=== PATIENT | female | born 1980 | race Hispanic/Latino ===

== ENCOUNTER 2018-09-09 19:06 | Emergency (ER) | payer OTHER ==
[~2018-09-09] VITALS: Ht 154.9 cm; Wt 113.4 kg
--- OUTSIDE RECORDS SUMMARY | ~2018-09-09 | XMS | Clinical Summary ---
Demographics + + + | Address | [address] | | | [place] [address] | + + + | Preferred Language | Unknown | + + + | Marital Status | Legally | + + + | Advent Affiliation | Unknown | + + + | Race | Unknown | + + + | Ethnic Group | Unknown | + + + Author + + + | Author | [facility] | + + + | Organization | [facility] | + + + | Address | Unknown | + + + | Phone | Unavailable | + + + Support + + +---------+ + | Name | Relationship | Address | Phone | + + +---------+ + | Rosalind Kang | ECON | Unknown | | + + +---------+ + Care Team Providers + +------+ + | Care Crib Attendant Name | Role | Phone | + +------+ + | Nguyen Carney MD | PP | Unavailable | + +------+ + Allergies No Known Allergies Current Medications + + +-------+---------+------+------+-------+ | Prescription | Sig. | Disp. | Refills | Star | End | Statu | | | | | | t | Date | s | | | | | | Date | | | + + +-------+---------+------+------+-------+ | calcium carbonate | Take 1 tablet by | | | | | Activ | | (OS-JESSICA) 1250 MG | mouth daily. | | | | | e | | tablet | | | | | | | + + +-------+---------+------+------+-------+ | ferrous sulfate | Take 325 mg by mouth | | | | | Activ | | 325 (65 FE) MG | daily with | | | | | e | | tablet | breakfast. | | | | | | + + +-------+---------+------+------+-------+ Active Problems + + + | Problem | Noted Date | + + + | Chest pain, unspecified | 09/15/2012 | + + + | Troponin level elevated | 09/15/2012 | + + + | Morbid obesity (HCC) | 09/15/2012 | + + + | Anemia, unspecified | 09/15/2012 | + + + Social History + +-------+ +--------+------+ | Tobacco Use | Types | Packs/Day | Years | Date | | | | | Used | | + +-------+ +--------+------+ | Never Smoker | | | | | + +-------+ +--------+------+ + + +---------+ + | Alcohol Use | Drinks/We | oz/Week | Comments | | | ek | | | + + +---------+ + | No | | | | + + +---------+ + + + + | Sex Assigned at | Date Recorded | | | | + + + | Not on file | | + + + Last Filed Vital Signs + + + + | Vital Sign | Reading | Time Taken | + + + + | Blood Pressure | 113/71 | 09/17/2012 4:24 PM PDT | + + + + | Pulse | 76 | 09/17/2012 4:24 PM PDT | + + + + | Temperature | 36.8 C (98.2 F) | 09/17/2012 4:24 PM PDT | + + + + | Respiratory Rate | 16 | 09/17/2012 4:24 PM PDT | + + + + | Oxygen Saturation | 96% | 09/17/2012 4:24 PM PDT | + + + + | Inhaled Oxygen | - | - | | Concentration | | | + + + + | Weight | 100 kg (220 lb 7.4 | 09/17/2012 12:08 AM PDT | | | oz) | | + + + + | Height | 154.9 cm (5' 1") | 09/15/2012 8:15 PM PDT | + + + + | Body Mass Index | 41.66 | 09/17/2012 12:08 AM PDT | + + + + Plan of Treatment Not on file Results Not on filefrom Last 3 Months Insurance +---------+--------+ +------+-------+ + | Payer | Benefi | Subscriber | Type | Phone | Address | | | t Plan | ID | | | | | | / | | | | | | | Group | | | | | +---------+--------+ +------+-------+ + | PREMERA | PREMER | [id number] | | | [address] [address] | | | A BLUE | 4 | | | [place], [place] | | | CARD | | | | [phone] | +---------+--------+ +------+-------+ + + +--------+ +--------+ + + | Guarantor Name | Accoun | Relation to | Date | Phone | Billing Address | | | t Type | Patient | of | | | | | | | | | | + +--------+ +--------+ + + | JUAN CARLOS DESOUZA | Person | Self [birth year] Home: | [address] | | | al/Fam | | 1980 | [phone] | [place] | | | [place] | | | [address] | [phone] | + +--------+ +--------+ + +
--- OUTSIDE RECORDS SUMMARY | ~2018-09-09 | XMS | Encounter Summary ---
Demographics + + + | Address | [address] | | | [place] [address] | + + + | Home Phone | | + + + | Preferred Language | Unknown | + + + | Marital Status | Single | + + + | Moravian Affiliation | Unknown | + + + | Race | White | + + + | Ethnic Group | or | + + + Author + + + | Author | [facility] | + + + | Organization | [facility] | + + + | Address | Unknown | + + + | Phone | Unavailable | + + + Support + + +---------+ + | Name | Relationship | Address | Phone | + + +---------+ + | Rosalind Kang | ECON | Unknown | | + + +---------+ + Care Team Providers + +------+ + | Care Engineering Job Titles Name | Role | Phone | + +------+ + | Josephine Ruff | PCP | Unavailable | + +------+ + Encounter Details +--------+------+ + + + | Date | Type | Department | Care Team | Description | +--------+------+ + + + | 12/08/ | Lab | Laboratory at [facility] | | Optic neuritis, left | | 2016 | | [address] | | | | | | [place], [place] | | | | | | [address] | | | | | | [phone] | | | +--------+------+ + + + Social History + +-------+ [...] | + +--------+ + + + | CHAYO BY BEATRICE | Routin | 12/09/2015 | Optic neuritis, | Results for this | | W/REFLEX TO IFA | e | 10:55 AM | left | procedure are in the | | PATTERN & AB ID WHEN | | PDT | | results section. | | INDICATED | | | | | + +--------+ + + + | QUANTIFERON TB GOLD, | Routin | 12/09/2015 | Optic neuritis, | Results for this | | BLOOD | e | 10:55 AM | left | procedure are in the | | | | PDT | | results section. | + +--------+ + + + | ANGIOTENSIN CONVERT | Routin | 12/09/2015 | Optic neuritis, | Results for this | | ENZYME, SERUM | e | 10:55 AM | left | procedure are in the | | | | PDT | | results section. | + +--------+ + + + | RPR SERUM | Routin | 12/09/2015 | Optic neuritis, | Results for this | | | e | 10:55 AM | left | procedure are in the | | | | PDT | | results section. | + +--------+ + + + | ANTI NEUTROPHIL | Routin | 12/09/2015 | Optic neuritis, | Results for this | | CYTOPLASMIC AB SCN, | e | 10:55 AM | left | procedure are in the | | SERUM | | PDT | | results section. | + +--------+ + + + documented in this encounter Results QUANTIFERON TB GOLD, BLOOD (12/09/2015 10:55 AM PDT) + + + + + + | Component | Value | Ref Range | Performed | Pathologist | | | | | At | Signature | + + + + + + | QUANTIFERON | Negative | Negative | [facility] | | TB GOLD | | | [facility] | | | | | | [place] | | + + + + + + | NIL | 0.187 | IU/mL | [facility] | | | | | [facility] | | | | | | [place] | | + + + + + + | TB AG | 0.280 | IU/mL | [facility] | | | | | [facility] | | | | | | [place] | | + + + + + + | MITOGEN | 3.354 | IU/mL | [facility] | | | | | [facility] | | | | | | [place] | | + + + + + + | TB AG-NIL | 0.092 | IU/mL | [facility] | | | | | | [facility] | | | | | | [place] | | + + + + + + | MITOGEN-NIL | 3.166 | IU/mL | [facility] | | | | | | [facility] | | | | | | [place] | | + + + + + + + + | Specimen | + + | Blood - Blood | + + + + + + + | Performing | Address | City/State/Zipcode | Phone Number | | Organization | | | | + + + + + | [facility] | [address] | [place] [address] | | | [place] | | | | + + + + + RPR SERUM (12/09/2015 10:55 AM PDT) + + + + + + | Component | Value | Ref Range | Performed | Pathologist | | | | | At | Signature | + + + + + + | RPR SRM | Non ReactiveComment: | Non Reactive | [facility] | | | QUAL | Rapid Plasma Reagin | | REG UNIV | | | | screening test is | | PTH - INTFC | | | | Non-Reactive. No further | | | | | | reflex testing is | | | | | | required.Performed by | | | | | | [facility],[address] | | | | | [address], [facility] | | | | | | [address] | | | | | | [phone].[employer]. | | | | | | yoni, Torey Gupta, | | | | | | Mikal PAYTON. Director | | | | + + + + + + + + | Specimen | + + | Blood - Blood | + + + + + + + | Performing | Address | City/State/Zipcode | Phone Number | | Organization | | | | + + + + + | [facility] | [address] | [place], [place] | | | UNIV PTH - INT[facility] | | [address] | | + + + + + ANTI NEUTROPHIL CYTOPLASMIC AB SCN, SERUM (12/09/2015 10:55 AM PDT) + + + + + + | Component | Value | Ref Range | Performed | Pathologist | | | | | At | Signature | + + + + + + | ANCA | <1:20Comment: The ANCA | <1:20 | [facility] | | | -NEUTROPHIL | IFA is <1:20; therefore, | | REG UNIV | | | | no further testing will | | PTH - INTFC | | | CYTOPLASMIC | be performed. ANCA IFA | | | | | IGG, SERUM | is < 1:20. No | | | | | | further reflex testing | | | | | | will be | | | | | | performed.INTERPRETIVE | | | | | | INFORMATION: | | | | | | Anti-Neutrophil Cyto Ab, | | | | | | IgG Neutrophil | | | | | | Cytoplasmic Antibodies | | | | | | (C-ANCA = granular | | | | | | cytoplasmic staining, | | | | | | P-ANCA = perinuclear | | | | | | staining) are found in | | | | | | the serum of over 90 | | | | | | percent of patients with | | | | | | certain necrotizing | | | | | | systemic vasculitides, | | | | | | and usually in less than | | | | | | 5 percent of patients | | | | | | with collagen vascular | | | | | | disease or | | | | | | arthritis.Performed by | | | | | | [facility],[address] | | | | | | [address], [facility] [place] | | | | | | [address] | | | | | | [phone].[employer]. | | | | | | yoni, Torey Gupta, | | | | | | Mikal PAYTON. Director | | | | + + + + + + + + | Specimen | + + | Blood - Blood | + + + + + + + | Performing | Address | City/State/Zipcode | Phone Number | | Organization | | | | + + + + + | [facility] | [address] | [place], [place] | | | UNIV PTH - INTFC | | [address] | | + + + + + CHAYO BY BEATRICE W/REFLEX TO IFA PATTERN & AB ID WHEN INDICATED (12/09/2015 10:55 AM PDT) + + + + + + | Component | Value | Ref Range | Performed | Pathologist | | | | | At | Signature | + + + + + + | ANTI-NUCLEA | None DetectedComment: No | None Detected | [facility] | | | R AB(CHAYO), | antibodies to | | REG UNIV | | | IGG BY | Anti-Nuclear Antibodies | | PTH - INTFC | | | BEATRICE | (CHAYO) detected. No | | | | | | further testing will be | | | | | | performed.INTERPRETIVE | | | | | | INFORMATION: | | | | | | Anti-Nuclear Antibodies | | | | | | (CHAYO), IgG by BEATRICE CHAYO | | | | | | specimens are screened | | | | | | using enzyme-linked | | | | | | immunosorbent assay | | | | | | (BEATRICE) methodology. All | | | | | | EBATRICE results reported | | | | | | as Detected are further | | | | | | tested by indirect | | | | | | fluorescent assay (IFA) | | | | | | using HEp-2 substrate | | | | | | with an IgG-specific | | | | | | conjugate. The CHAYO BEATRICE | | | | | | screen is designed to | | | | | | detect antibodies | | | | | | against dsDNA, histone, | | | | | | SS-A (Ro), SS-B (La), | | | | | | Mcfarlane, snRNP/Sm, Scl-70, | | | | | | Roya-1, centromere, and | | | | | | an extract of lysed | | | | | | HEp-2 cells. CHAYO BEATRICE | | | | | | assays have been | | | | | | reported to have lower | | | | | | sensitivities for | | | | | | antibodies associated | | | | | | with nucleolar and | | | | | | speckled CHAYO-IFA | | | | | | patterns.Performed by | | | | | | [facility],[address] | | | | | | [address], [facility] [place] | | | | | | [address] | | | | | | [phone].[employer]. | | | | | | [facility], Torey Gupta, | | | | | | Mikal PAYTON. Director | | | | + + + + + + + + | Specimen | + + | Blood - Blood | + + + + + + + | Performing | Address | City/State/Zipcode | Phone Number | | Organization | | | | + + + + + | [facility] | [address] | [place], [place] | | | UNIV PTH - INTFC | | [address] | | + + + + + ANGIOTENSIN CONVERT ENZYME, SERUM (12/09/2015 10:55 AM PDT) + + + + + + | Component | Value | Ref Range | Performed | Pathologist | | | | | At | Signature | + + + + + + | ANGIOTENSIN | 24Comment: INTERPRETIVE | 9 - 67 U/L | [facility] | | | CONVERTING | INFORMATION: Angiotensin | | REG UNIV | | | ENZYME, | Converting EnzymeFor | | PTH - INTFC | | | SERUM | related information, see | | | | | | | | | | | | [email or web address] | | | | | | 001Performed by [facility] | | | | | | [facility],[address] | [address], [place] [address] | | | | | | [phone]. | | | | | | Torey vallejo, | | | | | | Mikal PAYTON. Director | | | | + + + + + + + + | Specimen | + + | Blood - Blood | + + + + + + + | Performing | Address | City/State/Zipcode | Phone Number | | Organization | | | | + + + + + | [facility] | [address] | [place], [place] | | | UNIV PTH - INTFC | | [address] | | + + + + + documented in this encounter Visit Diagnoses + + | Diagnosis | + + | Optic neuritis, left Optic neuritis, unspecified | + + documented in this encounter"
--- OUTSIDE RECORDS SUMMARY | ~2018-09-09 | XMS | Encounter Summary ---
Demographics + + + | Address | [address] | | | [place] [address] | + + + | Home Phone | | + + + | Preferred Language | Unknown | + + + | Marital Status | Single | + + + | Sikhism Affiliation | Unknown | + + + | Race | White | + + + | Ethnic Group | or | + + + Author + + + | Author | [facility] | + + + | Organization | [facility] | + + + | Address | Unknown | + + + | Phone | Unavailable | + + + Support + + +---------+ + | Name | Relationship | Address | Phone | + + +---------+ + | Rosalind Kang | ECON | Unknown | | + + +---------+ + Care Team Providers + +------+ + | Care Fur Vault Attendant Name | Role | Phone | + +------+ + | Josephine Ruff | PCP | Unavailable | + +------+ + Reason for Visit [...] Condition | | 2016 | on | [place] | [address] | | | | | Neuro-Ophthalmology | [place], [place] | | | | | at [facility] [address] | [address] | | | | | [address] Mailcode: | [phone] | | | | | [facility] | | | | | | Health and Healing, | | | | | | [address] Floor | | | | | | [place], [place] | | | | | | [address] | | | | | | [phone] | | | +--------+ + + + [...]
--- OUTSIDE RECORDS SUMMARY | ~2018-09-09 | XMS | Encounter Summary ---
Demographics + + + | Address | [address] | | | [place] [address] | + + + | Home Phone | | + + + | Preferred Language | Unknown | + + + | Marital Status | Single | + + + | Gnosticism Affiliation | Unknown | + + + | Race | White | + + + | Ethnic Group | or | + + + Author + + + | Author | [facility] | + + + | Organization | [facility] | + + + | Address | Unknown | + + + | Phone | Unavailable | + + + Support + + +---------+ + | Name | Relationship | Address | Phone | + + +---------+ + | Rosalind Kang | ECON | Unknown | | + + +---------+ + Care Team Providers + +------+ + | Care Barn Manager Name | Role | Phone | + +------+ + | Josephine Ruff | PCP | Unavailable | + +------+ + Reason for Visit + + + | Reason | Comments | + + + | Medication Questions | | + + + Encounter Details +--------+ + + + + | Date | Type | Department | Care Team | Description | +--------+ + + + + | 12/09/ | Documentati | [facility] | Idania De La Cruz, | Medication Questions | | 2016 | on | [place] | [address] | | | | | Neuro-Ophthalmology | [place], [place] | | | | | at [facility] [address] | [address] | | | | | [address] Mailcode: | [phone] | | | | | [facility] | | | | | | Health and Healing, | | | | | | [address]th Floor | | | | | | [place], [place] | | | | | | [address] | | | | | | [phone] | | | +--------+ + + + [...]
--- OUTSIDE RECORDS SUMMARY | ~2018-09-09 | XMS | Encounter Summary ---
Demographics + + + | Address | [address] | | | [place] [address] | + + + | Home Phone | | + + + | Preferred Language | Unknown | + + + | Marital Status | Single | + + + | Scientology Affiliation | Unknown | + + + | Race | White | + + + | Ethnic Group | or | + + + Author + + + | Author | [facility] | + + + | Organization | [facility] | + + + | Address | Unknown | + + + | Phone | Unavailable | + + + Support + + +---------+ + | Name | Relationship | Address | Phone | + + +---------+ + | Rosalind Kang | ECON | Unknown | | + + +---------+ + Care Team Providers + +------+ + | Care Hull Inspector Name | Role | Phone | + +------+ + | Josephine Ruff | PCP | Unavailable | + +------+ + Reason for Visit + + + | Reason | Comments | + + + | Care Coordination | | + + + Encounter Details +--------+ + + + + | Date | Type | Department | Care Team | Description | +--------+ + + + + | 12/14/ | Telephone | [facility] | Idania De La Cruz, | Care Coordination | | 2016 | | [place] | MD [address] | | | | | Neuro-Ophthalmology | [place], [place] | | | | | at [facility] [address] | [address] | | | | | [address] Mailcode: | [phone] | | | | | [facility] | | | | | | Health and Healing, | | | | | | [facility] | | | | | | [place], [place] | | | | | | [address] | | | | | | [phone] | | | +--------+ + + + [...]
--- OUTSIDE RECORDS SUMMARY | ~2018-09-09 | XMS | Clinical Summary ---
Demographics + + + | Address | [address] | | | [place] [address] | + + + | Preferred Language | Unknown | + + + | Marital Status | Legally | + + + | Mandaen Affiliation | Unknown | + + + [...] Team Providers + +------+ + | Care Cleat Maker Name | Role | Phone | [...] +------+-------+ + | PREMERA | PREMER | [id number] | | | [address] [address] | | | A BLUE | 4 | | | [place], [place] | | | CARD | | | | [address] | +---------+--------+ +------+-------+ + + +--------+ +--------+ [...] | | al/Fam | | 1980 | [phone] | [place] | | | [place] | | | [address] | [address] | + +--------+ +--------+ + +
--- OUTSIDE RECORDS SUMMARY | ~2018-09-09 | XMS | Encounter Summary ---
Demographics + + + | Address | [address] | | | [place] [address] | + + + | Home Phone | | + + + | Preferred Language | Unknown | + + + | Marital Status | Single | + + + | Muslim Affiliation | Unknown | + + + | Race | White | + + + | Ethnic Group | or | + + + Author + + + | Author | [facility] | + + + | Organization | [facility] | + + + | Address | Unknown | + + + | Phone | Unavailable | + + + Support + + +---------+ + | Name | Relationship | Address | Phone | + + +---------+ + | Rosalind Kang | ECON | Unknown | | + + +---------+ + Care Team Providers + +------+ + | Care Glass Cutting Machine Operator Name | Role | Phone | + +------+ + | Josephine Ruff | PCP | Unavailable | + +------+ + Encounter Details +--------+------+ + + + | Date | Type | Department | Care Team | Description | +--------+------+ + + + | 12/08/ | Lab | Laboratory at [facility] | | Optic neuritis, left | | 2016 | | [address] | | | | | | [place], [place] | | | | | | [address] | | | | | | [phone] | | | +--------+------+ + + + [...] | + + + + + | [facility] - | [address] | [place] [address] | | | [place] | | | [...] by | | | | | | [facility],[address] | | | | | | [address], [facility] | | | | | | [address] | | | | | | [phone].[employer]. | | | | | | yoni, [...] [facility] | [address] | [place], [place] | | | UNIV PTH - INTFC | | [address] | | + + + + + [...] by | | | | | | [employer] [facility],[address] | | | | | | [address], [facility] [place] | | | | | | [address] | | | | | | [phone].[employer]. | | | | | | yoni, [...] [facility] | [address] | [place], [place] | | | UNIV PTH - INTFC | | [address] | | + + + + + [...] All | | | | | | BEATRICE results reported | | | | | [...] by | | | | | | [employer],[address] | | | | | | [address], [facility] [place] | | | | | | [address] | | | | | | [phone].[employer]. | | | | | | [facility], Torey Gupta, | | | | [...] [facility] | [address] | [place], [place] | | | UNIV PTH - INTFC | | [address] | | + + + + + [...] | | | | | | | [email or web address] | | | | | | 001Performed by [facility] | | | | | | [facility],[address] | [address], [place] [address] | | | | | | [phone]. | | | | | | Torey [...] [facility] | [address] | [place], [place] | | | UNIV PTH - INTFC | | [address] | | + + + + + documented in this encounter Visit Diagnoses + + | Diagnosis | + + | Optic neuritis, left Optic neuritis, unspecified | + + documented in this encounter"
--- OUTSIDE RECORDS SUMMARY | ~2018-09-09 | XMS | Encounter Summary ---
Demographics + + + | Address | [address] | | | [place] [address] | + + + | Home Phone | | + + + | Preferred Language | Unknown | + + + | Marital Status | Single | + + + | Holiness Affiliation | Unknown | + + + | Race | White | + + + | Ethnic Group | or | + + + Author + + + | Author | [facility] | + + + | Organization | [facility] | + + + | Address | Unknown | + + + | Phone | Unavailable | + + + Support + + +---------+ + | Name | Relationship | Address | Phone | + + +---------+ + | Rosalind Kang | ECON | Unknown | | + + +---------+ + Care Team Providers + +------+ + | Care Smoke Eater Name | Role | Phone | + [...] Questions | | 2016 | on | [place] | [address] | | | | | Neuro-Ophthalmology | [place], [place] | | | | | at [facility] [address] | [address] | | | | | [address] Mailcode: | [phone] | | | | | [facility] | | | | | | Health and Healing, | | | | | | [address]th Floor | | | | | | [place], [place] | | | | | | [address] | | | | | | [phone] | | | +--------+ + + + [...]
--- OUTSIDE RECORDS SUMMARY | ~2018-09-09 | XMS | Encounter Summary ---
Demographics + + + | Address | [address] | | | [place] [address] | + + + | Home Phone | | + + + | Preferred Language | Unknown | + + + | Marital Status | Single | + + + | Presybeterian Affiliation | Unknown | + + + | Race | White | + + + | Ethnic Group | or | + + + Author + + + | Author | [facility] | + + + | Organization | [facility] | + + + | Address | Unknown | + + + | Phone | Unavailable | + + + Support + + +---------+ + | Name | Relationship | Address | Phone | + + +---------+ + | Rosalind Kang | ECON | Unknown | | + + +---------+ + Care Team Providers + +------+ + | Care Heel Dipper Name | Role | Phone | + [...] Condition | | 2016 | on | [place] | [address] | | | | | Neuro-Ophthalmology | [place], [place] | | | | | at [facility] [address] | [address] | | | | | [address] Mailcode: | [phone] | | | | | [facility] | | | | | | Health and Healing, | | | | | | [address] | | | | | | [place], [place] | | | | | | [address] | | | | | | [phone] | | | +--------+ + + + [...]
--- OUTSIDE RECORDS SUMMARY | ~2018-09-09 | XMS | Encounter Summary ---
Demographics + + + | Address | [address] | | | [place] [address] | + + + | Home Phone | | + + + | Preferred Language | Unknown | + + + | Marital Status | Single | + + + | Zoroastrianism Affiliation | Unknown | + + + [...] Team Providers + +------+ + | Care Bilingual Nanny Name | Role | Phone | + [...] Care Coordination | | 2016 | | [place] | MD [address] | | | | | Neuro-Ophthalmology | [place], [place] | | | | | at [facility] [address] | [address] | | | | | [address] Mailcode: | [phone] | | | | | [facility] | | | | | | Health and Healing, | | | | | | [facility] | | | | | | [place], [place] | | | | | | [address] | | | | | | [phone] | | | +--------+ + + + [...]
--- OUTSIDE RECORDS SUMMARY | ~2018-09-09 | XMS | Encounter Summary ---
Demographics + + + | Address | [address] | | | [place] [address] | + + + | Home Phone | | + + + | Preferred Language | Unknown | + + + | Marital Status | Single | + + + | Latter-Day Affiliation | Unknown | + + + | Race | White | + + + | Ethnic Group | or | + + + Author + + + | Author | [facility] | + + + | Organization | [facility] | + + + | Address | Unknown | + + + | Phone | Unavailable | + + + Support + + +---------+ + | Name | Relationship | Address | Phone | + + +---------+ + | Rosalind Kang | ECON | Unknown | | + + +---------+ + Care Team Providers + +------+ + | Care Chemist Instrumentation Name | Role | Phone | + [...] Condition | | 2016 | on | [place] | [address] | | | | | Neuro-Ophthalmology | [place], [place] | | | | | at [facility] [address] | [address] | | | | | [address] Mailcode: | [phone] | | | | | [facility] | | | | | | Health and Healing, | | | | | | 11 Floor | | | | | | [place], [place] | | | | | | [address] | | | | | | [phone] | | | +--------+ + + + [...]
--- OUTSIDE RECORDS SUMMARY | ~2018-09-09 | XMS | Encounter Summary ---
Demographics + + + | Address | [address] | | | [place] [address] | + + + | Home Phone | | + + + | Preferred Language | Unknown | + + + | Marital Status | Single | + + + | Confucianism Affiliation | Unknown | + + + | Race | White | + + + | Ethnic Group | or | + + + Author + + + | Author | [facility] | + + + | Organization | [facility] | + + + | Address | Unknown | + + + | Phone | Unavailable | + + + Support + + +---------+ + | Name | Relationship | Address | Phone | + + +---------+ + | Rosalind Kang | ECON | Unknown | | + + +---------+ + Care Team Providers + +------+ + | Care Cooker Syrup Name | Role | Phone | + [...] | Ophthalmology | Diagnoses | Marisa, | Dorothy | | | | | Unspecified | Héctor Rico, | MD Idania | | | | | papilledema | [facility] | [address] | | | | | | SOURCE | Ave | | | | | | [place] | [place], [place] | | | | | | [address] | [address] | | | | | | [address] | Phone: | | | | | | [place], | [phone] | | | | | | [place] [address] | Fax: | | | | | | Phone: | [phone] | | | | | | [phone] | | | | | | | Fax: | | | | | | | [phone] | | +--------+--------+ + + + + Encounter Details +--------+---------+ + + + | Date | Type | Department | Care Team | Description | +--------+---------+ + + + | 12/08/ | Office | [facility] | Idania De La Cruz, | Optic neuritis, left | | 2016 | Visit | [place] | [address] | (Primary Dx) | | | | Neuro-Ophthalmology | [place], [place] | | | | | at [facility] [address] | [address] | | | | | [address] Mailcode: | [phone] | | | | | [facility] | | | | | | Health and Healing, | | | | | | 11 Floor | | | | | | [place], [place] | | | | | | [address] | | | | | | [phone] | | | +--------+---------+ + + + [...] Susan was see n at [facility] on 12/04/2015 for vision loss, left eye. [...] Additional Tests Color Right Left Carrasquillo - Otoe - Rittler 8.5/10 0/10 Slit Lamp and [...] next week with an update Attestations: The brass instrument repair technician, under the supervision of the physician, is responsible for performing the f ollowing sections: RFV, ROS, PMH, PSH, SocHx, FH, Med list, Base Ophth Exam. The attending physician is responsible for the entire content of the note, has reviewed the data gathered by the brass instrument repair technician, and has personally performed the HPI, the physical examina tion, and the medical decision making. Idania De La Cruz MD Lisette Borden - 12/09/2015 10:15 AM Sally FLOWER, performed, reviewed and revised the above history, medications, allergies, as well as performed elements noted in the Base Ophth almology Exam. Taqueria mented in this encounter Plan of Treatment [...] + + + + + | [facility] - | [address] | [place], [place] [address] | | | [place] | | | | + + + [...] by | | | | | | [address] | | | | | | Aneudynellie Muller[facility],[place] | | | | | | [address] | | | | | | [phone].[employer]lab. | | | | | | Torey [...] [facility] | [address] | [place], [place] | | | UNIV PTH - INTFC | | [address] | | + + + + + [...] by | | | | | | [address] | | | | | | Aneudynellie Muller, [facility],[place] | | | | | | [address] | | | | | | [phone].[employer]. | | | | | | Torey [...] + + | [facility] | [address] | [place], [place] | | | UN[facility] PTH - INTFC | | [address] | | + + + + + [...] by | | | | | | [address] | | | | | | Chip[facility] [address], [facility],[place] | | | | | | [address] | | | | | | [phone].[employer]. | | | | | | [facility], Torey Gupta, | | | | [...] [facility] | [address] | [place], [place] | | | UN[facility] PTH - INTFC | | [address] | | + + + + + [...] | | | | | | | [email or web address] | | | | | | 001Performed by [facility] | | | | | | Laboratories,[address] | | | | | | [place] [address] | | | | | | [phone].[employer]. | | | | | | Torey vallejo, | | | | | | Lab. [...] [facility] | [address] | [place], [place] | | | UN[address] PTH - INTFC | | [address] | | + + + + + documented in this encounter Visit Diagnoses + + | Diagnosis | + + | Optic neuritis, left - Primary Optic neuritis, unspecified | + + documented in this encounter
--- OUTSIDE RECORDS SUMMARY | ~2018-09-09 | XMS | Encounter Summary ---
Demographics + + + | Address | [address] | | | [place] [address] | + + + | Home Phone | | + + + | Preferred Language | Unknown | + + + | Marital Status | Single | + + + | Anabaptism Affiliation | Unknown | + + + | Race | White | + + + | Ethnic Group | or | + + + Author + + + | Author | [facility] | + + + | Organization | [facility] | + + + | Address | Unknown | + + + | Phone | Unavailable | + + + Support + + +---------+ + | Name | Relationship | Address | Phone | + + +---------+ + | Rosalind Kang | ECON | Unknown | | + + +---------+ + Care Team Providers + +------+ + | Care Tax Assessor Name | Role | Phone | + [...] Condition | | 2016 | on | [place] | [address] | | | | | Neuro-Ophthalmology | [place], [place] | | | | | at [facility] [address] | [address] | | | | | [address] Mailcode: | [phone] | | | | | [facility] | | | | | | Health and Healing, | | | | | | 11 Floor | | | | | | [place], [place] | | | | | | [address] | | | | | | [phone] | | | +--------+ + + + [...]
--- OUTSIDE RECORDS SUMMARY | ~2018-09-09 | XMS | Clinical Summary ---
Demographics + + + | Address | [address] | | | [place] [address] | + + + | Home Phone | | + + + | Preferred Language | Unknown | + + + | Marital Status | Single | + + + | Taoism Affiliation | Unknown | + + + | Race | White | + + + | Ethnic Group | or | + + + Author + + + | Author | [facility] | + + + | Organization | [facility] | + + + | Address | Unknown | + + + | Phone | Unavailable | + + + Support + + +---------+ + | Name | Relationship | Address | Phone | + + +---------+ + | Rosalind Kang | ECON | Unknown | | + + +---------+ + Care Team Providers + +------+ + | Care Press Manager Name | Role | Phone | + +------+ + | Josephine Ruff | PP | Unavailable | + +------+ + Source Comments OCTAVIO is fully live on both [facility] Ambulatory and [facility] InPatient.[facility] Allergies No Known Allergies Medications + [...] (Flu) | | | | | vaccination (Season | 9 | | | | Ended) | | | | + + + [...] | | | + +--------+ +--------+-------+---------+--------+ | DEFLASH AND WASH OPERATOR MEDICAID | DEFLASH AND WASH OPERATOR | xxxxxxxx | | | | Medica [...] | Self | [birth year] | [address] | | Susan Cisneros | al/[place] | | 1980 | [phone] | [place] [address] | | | erika | | | 4 (Home) | | + +--------+ +--------+ + +
--- OUTSIDE RECORDS SUMMARY | ~2018-09-09 | XMS | Clinical Summary ---
Demographics + + + | Address | [address] | | | [place] [address] | + + + | Home Phone | | + + + | Preferred Language | Unknown | + + + | Marital Status | Single | + + + | Scientology Affiliation | Unknown | + + + | Race | White | + + + | Ethnic Group | or | + + + Author + + + | Author | [facility] | + + + | Organization | [facility] | + + + | Address | Unknown | + + + | Phone | Unavailable | + + + Support + + +---------+ + | Name | Relationship | Address | Phone | + + +---------+ + | Rosalind Kang | ECON | Unknown | | + + +---------+ + Care Team Providers + +------+ + | Care Transport Coordinator Name | Role | Phone | + +------+ + | Josephine Ruff | PP | Unavailable | + +------+ + Source Comments OCTAVIO is fully live on both [facility] Ambulatory and [facility] InPatient.[facility] Allergies No Known Allergies Medications + [...] | | | + +--------+ +--------+-------+---------+--------+ | JET DYEING MACHINE OPERATOR MEDICAID | JET DYEING MACHINE OPERATOR | xxxxxxxx | | | | [...] | 1980 | [phone] | [place] [address] | | | erika | | | 4 (Home) | | + +--------+ +--------+ + +
--- OUTSIDE RECORDS SUMMARY | ~2018-09-09 | XMS | Encounter Summary ---
Demographics + + + | Address | [address] | | | [place] [address] | + + + | Home Phone | | + + + | Preferred Language | Unknown | + + + | Marital Status | Single | + + + | Worship Affiliation | Unknown | + + + | Race | White | + + + | Ethnic Group | or | + + + Author + + + | Author | [facility] | + + + | Organization | [facility] | + + + | Address | Unknown | + + + | Phone | Unavailable | + + + Support + + +---------+ + | Name | Relationship | Address | Phone | + + +---------+ + | Rosalind Kang | ECON | Unknown | | + + +---------+ + Care Team Providers + +------+ + | Care Pony Worker Name | Role | Phone | [...] | | | | | [place] | [place], [place] | | | | | | [address] | [address] | | | | | | [address] | Phone: | | | | | | [place], | [phone] | | | | | | [place] [address] | Fax: | | | | | | Phone: | [phone] | | | | | | [phone] | | | | | | | Fax: | | | | | | | [phone] | | +--------+--------+ + + + + Encounter Details +--------+---------+ + + + | Date | Type | Department | Care Team | Description | +--------+---------+ + + + | 12/08/ | Office | [facility] | Idania De La Cruz, | Optic neuritis, left | | 2016 | Visit | [place] | [address] | (Primary Dx) | | | | Neuro-Ophthalmology | [place], [place] | | | | | at [facility] [address] | [address] | | | | | [address] Mailcode: | [phone] | | | | | [facility] | | | | | | Health and Healing, | | | | | | 11 Floor | | | | | | [place], [place] | | | | | | [address] | | | | | | [phone] | | | +--------+---------+ + + + [...] Susan was see n at [facility] on 12/04/2015 for vision loss, left eye. [...] Additional Tests Color Right Left Carrasquillo - Spencer - Rittler 8.5/10 0/10 Slit Lamp and [...] next week with an update Attestations: The meteorological technician, under the supervision of the physician, is responsible for performing the f ollowing sections: RFV, ROS, PMH, PSH, SocHx, FH, Med list, Base Ophth Exam. The attending physician is responsible for the entire content of the note, has reviewed the data gathered by the meteorological technician, and has personally performed the HPI, [...] | + + + + + | [facility] - | [address] | [place], [place] [address] | | | [place] | | | | + + + [...] by | | | | | | [address]Rank,[address] | | | | | | Aneudynellie Muller[facility],[place] | | | | | | [address] | | | | | | [phone].[employer] Holdingslab. | | | | | | Torey [...] [facility] | [address] | [place], [place] | | | UNIV PTH - INTFC | | [address] | | + + + + + [...] by | | | | | | DataRank,500 | | | | | | Aneudynellie Muller, [facility],[place] | | | | | | [address] | | | | | | [phone].[employer]lab. | | | | | | Torey [...] [facility] | [address] | [place], [place] | | | UN[facility] PTH - INTFC | | [address] | | + + + + + [...] by | | | | | | DataRank,500 | | | | | | [address] [address], [facility],[place] | | | | | | [address] | | | | | | [phone].[employer]lab. | | | | | | [facility], Torey Gupta, | | | [...] [facility] | [address] | [place], [place] | | | UN[address] PTH - INTFC | | [address] | | + + + + + [...] | | | | | | | [email or web address]/0080 | | | | | | 001Performed by [facility] | | | | | | Laboratories,[address] | | | | | | [place] [address] | | | | | | [phone].[employer]lab. | | | | | | Torey [...] [facility] | [address] | [place], [place] | | | UNIV PTH - INTFC | | [address] | | + + + + + documented in this encounter Visit Diagnoses + + | Diagnosis | + + | Optic neuritis, left - Primary Optic neuritis, unspecified | + + documented in this encounter
[~2018-09-09 19:06] MED LIST: CALCIUM500 MG; DOXYCYCLINE HY100 MG PO; IBUPROFEN800 MG PO; INDOMETHACIN50 MG PO; IRON18 MG; IRON325 MG PO; KEFLEX500 MG PO; MAKENA250 MG/1 M IM; NORCO 5-325 TA1 EACH PO; ONDANSETRON ODT8 MG PO; PRENATAL ONE T1 EACH PO; PROTONIX40 MG PO; REGLAN10 MG PO; TYLENOL WITH C1 EACH PO; TYLENOL325 MG PO; [UNRECOGNIZED DRUG - OTHER] PO
[2018-09-09] MEDS ORDERED: DICLOFENAC SODI75 MG PO (19:50)
== END 2018-09-09 20:18 | disposition home or self-care (01) ==
LOC: ED 19:06
DX: M25.562 Pain in left knee (principal)
CPT/HCPCS: 73560; 99283

== ENCOUNTER 2019-08-24 10:19 | Emergency (ER) | payer OTHER ==
[~2019-08-24] VITALS: Ht 154.9 cm; Wt 112.9 kg
--- OUTSIDE RECORDS SUMMARY | ~2019-08-24 | XMS | Encounter Summary ---
Demographics + + + | Address | [address] | | | [place] [address] | + + + | Home Phone | | + + + | Preferred Language | Unknown | + + + | Marital Status | Single | + + + | Jain Affiliation | Unknown | + + + | Race | Unknown | + + + | Ethnic Group | Unknown | + + + Author + + + | Author | [facility] | | | and [place] | + + + | Organization | [facility] | | | and [place] | [...] Team Providers + +------+ + | Care Advertising Copywriter Name | Role | Phone | + +------+ + PCP | Unavailable | + +------+ + Encounter Details +--------+ + + + + | Date | Type | Department | Care Team | Description | +--------+ + + + + | 09/19/ | Hospital | [facility] GENERIC IP | Conversion | SOB (shortness of | | 2012 | Encounter | CONVERSION DEP 888 | Transaction, | breath) | | | | MARTIN HUFFMAN | Provider Unknown | | | | | [place], [place] | | | | | | [address] | (Fax) | | | | | | | | +--------+ + + + [...] Not on filedocumented as of this encounter Procedures + +--------+ + + + | Procedure Name | Priori | Date/Time | Associated Diagnosis | Comments | | | ty | | | | + +--------+ + + + | XR CHEST 1 VIEW | Routin | 09/15/2012 | | Results for this | | | e | 11:21 AM | | procedure are in the | | | | PDT | | results section. | + +--------+ + + + documented in this encounter Results XR Chest 1 Vw (09/15/2012 11:21 AM PDT) + + | Specimen | + + | | + + + + + | Narrative | Performed At | + + + | This is a non-reportable procedure without a radiologist report and | | | is used for image storage only | | + + + + + | Procedure Note | + + | Adan Welch - 12/08/2018 6:27 PM PDT This is a non-reportable procedure | | without a radiologist report and isused for image storage only | + + documented in this encounter Visit Diagnoses + + | Diagnosis | + + | SOB (shortness of breath) Shortness of breath | + + documented in this encounter"
--- OUTSIDE RECORDS SUMMARY | ~2019-08-24 | XMS | Clinical Summary ---
Demographics + + + | Address | [address] | | | [place] [address] | + + + | Home Phone | | + + + | Preferred Language | Unknown | + + + | Marital Status | Single | + + + | Restorationist Affiliation | Unknown | + + + | Race | Unknown | + + + | Ethnic Group | Unknown | + + + Author + + + | Author | [facility] | | | and [place] | + + + | Organization | [facility] | | | and [place] [...] Team Providers + +------+ + | Care Shift Supervisor Rn Name | Role | Phone | + +------+ + | Josephine Ruff | PCP | | + +------+ + Allergies Not on [...] | + + Last Filed Vital Signs Not on file Plan of Treatment + + + + + | Health Maintenance | Due Date | Last Done | Comments | + + + + + | Cervical Cancer | | | | | Screening (Pap) | 0 | | | + + + + + | Vaccine: Influenza | | | | | (Season Ended) | 0 | | | + + + + + | Vaccine: | | 08/05/2015, 10/18/2013 | | | Dtap/Tdap/Td (3 - | 6 | | | | Td) | | | | + + + [...] | [employer] | [facility] | [id number] | | [phone] | | Medica | [...] [address] | | [place] | glenn/[place]ern[place] | | 1980 | [phone] | [place] [address] | | | erika | | | 6 ([place]) | | + +--------+ +--------+ + +"
--- OUTSIDE RECORDS SUMMARY | ~2019-08-24 | XMS | Encounter Summary ---
Demographics + + + | Address | [address] | | | [place] [address] | + + + | Home Phone | | + + + | Preferred Language | Unknown | + + + | Marital Status | Single | + + + | Taoism Affiliation | Unknown | + + + | Race | White | + + + | Ethnic Group | or | + + + Author + + + | Author | [facility] | + + + | Organization | [facility] | + + + | Address | Unknown | + + + | Phone | Unavailable | + + + Support + + +---------+ + | Name | Relationship | Address | Phone | + + +---------+ + | Rosalind Kang | ECON | Unknown | | + + +---------+ + Care Team Providers + +------+ + | Care Automotive Electrical Helper Name | Role | Phone | [...] | | | | | Neuro-Ophthalmology | [place], [place] | | | | | at [facility] [address] | [address] | | | | | Ave Mailcode: [address] | [phone] | | | | | [facility] | | | | | | and Healing, | | | | | | Building | | | | | | Floor [facility] [place] | | | | | | [address] | | | | | | [phone] | | | +--------+ + + + [...]
--- OUTSIDE RECORDS SUMMARY | ~2019-08-24 | XMS | Clinical Summary ---
Demographics + + + | Address | [address] | | | [place] [address] | + + + | Home Phone | | + + + | Preferred Language | Unknown | + + + | Marital Status | Single | + + + | Sabianism Affiliation | Unknown | + + + | Race | White | + + + | Ethnic Group | or | + + + Author + + + | Author | [facility] | + + + | Organization | [facility] | + + + | Address | Unknown | + + + | Phone | Unavailable | + + + Support + + +---------+ + | Name | Relationship | Address | Phone | + + +---------+ + | Rosalind Kang | ECON | Unknown | | + + +---------+ + Care Team Providers + +------+ + | Care Executive Kitchen Manager Name | Role | Phone | + +------+ + | Josephine Ruff | PCP | | + +------+ + Source Comments OCTAVIO is fully live on both [facility] Ambulatory and [facility] InPatient.[facility] Allergies No Known Allergies Medications + + [...] | | | + +--------+ +--------+-------+---------+--------+ | FORESTRY ENGINEER MEDICAID | FORESTRY ENGINEER | xxxxxxxx | | | | Medica [...] | 1980 | [phone] | [place] [address] | | | erika | | | 4 (Home) | | + +--------+ +--------+ + +
--- OUTSIDE RECORDS SUMMARY | ~2019-08-24 | XMS | Encounter Summary ---
Demographics + + + | Address | [address] | | | [place] [address] | + + + | Home Phone | | + + + | Preferred Language | Unknown | + + + | Marital Status | Single | + + + | Jainism Affiliation | Unknown | + + + [...] Team Providers + +------+ + | Care Hose Maker Name | Role | Phone | [...] Care Coordination | | 2016 | | [place] | [address] | | | | | Neuro-Ophthalmology | [place], [place] | | | | | at [facility] [address] | [address] | | | | | [address] Mailcode: JOSEPH | [phone] | | | | | [facility] | | | | | | and [place], | | | | | | Building | | | | | | Floor [place], [place] | | | | | | [address] | | | | | | [phone] | | | +--------+ + + + [...]
--- OUTSIDE RECORDS SUMMARY | ~2019-08-24 | XMS | Encounter Summary ---
Demographics + + + | Address | [address] | | | [place] [address] | + + + | Home Phone | | + + + | Preferred Language | Unknown | + + + | Marital Status | Single | + + + | Samaritan Affiliation | Unknown | + + + | Race | White | + + + | Ethnic Group | or | + + + Author + + + | Author | [facility] | + + + | Organization | [facility] | + + + | Address | Unknown | + + + | Phone | Unavailable | + + + Support + + +---------+ + | Name | Relationship | Address | Phone | + + +---------+ + | Rosalind Kang | ECON | Unknown | | + + +---------+ + Care Team Providers + +------+ + | Care Relationship Executive Name | Role | Phone | + [...] | | | | | Neuro-Ophthalmology | [place], [place] | | | | | at [facility] [address] | [address] | | | | | Ave Mailcode: JO[place] | [phone] | | | | | [facility] | | | | | | and Healing, | | | | | | Building | | | | | | Floor [facility] [place] | | | | | | [address] | | | | | | [phone] | | | +--------+ + + + [...]
--- OUTSIDE RECORDS SUMMARY | ~2019-08-24 | XMS | Encounter Summary ---
Demographics + + + | Address | [address] | | | [place] [address] | + + + | Home Phone | | + + + | Preferred Language | Unknown | + + + | Marital Status | Single | + + + | Presybeterian Affiliation | Unknown | + + + | Race | White | + + + | Ethnic Group | or | + + + Author + + + | Author | [facility] | + + + | Organization | [facility] | + + + | Address | Unknown | + + + | Phone | Unavailable | + + + Support + + +---------+ + | Name | Relationship | Address | Phone | + + +---------+ + | Rosalind Kang | ECON | Unknown | | + + +---------+ + Care Team Providers + +------+ + | Care Coal Equipment Operator Name | Role | Phone | [...] | | | | | Neuro-Ophthalmology | [place], [place] | | | | | at [facility] [address] | [address] | | | | | Ave Mailcode: JO[place] | [phone] | | | | | [facility] | | | | | | and Healing, | | | | | | Building | | | | | | Floor [facility] [place] | | | | | | [address] | | | | | | [phone] | | | +--------+ + + + [...]
--- OUTSIDE RECORDS SUMMARY | ~2019-08-24 | XMS | Encounter Summary ---
Demographics + + + | Address | [address] | | | [place] [address] | + + + | Home Phone | | + + + | Preferred Language | Unknown | + + + | Marital Status | Single | + + + | Catholic Affiliation | Unknown | + + + | Race | White | + + + | Ethnic Group | or | + + + Author + + + | Author | [facility] | + + + | Organization | [facility] | + + + | Address | Unknown | + + + | Phone | Unavailable | + + + Support + + +---------+ + | Name | Relationship | Address | Phone | + + +---------+ + | Rosalind Kang | ECON | Unknown | | + + +---------+ + Care Team Providers + +------+ + | Care Claims Consultant Name | Role | Phone | + +------+ + | Josephine Ruff | PCP | | + +------+ + Encounter Details +--------+------+ + + + | Date | Type | Department | Care Team | Description | +--------+------+ + + + | 12/08/ | Lab | Laboratory at [facility] | | Optic neuritis, left | | 2015 | | [address] | | | | | | [place], [place] | | | | | | [address] | | | | | | [phone] | | | +--------+------+ + + + [...] | + + + + + | [facility] - | [address] | [place] [address] | | | [place] | | | | + + + [...] by | | | | | | [address] | | | | | | [address], [facility] | | | | | | [address] | | | | | | [phone].[employer]. | | | | | | Torey vallejo, | | | | | | MD Lab. Director | | | | + + + + + + + + | Specimen | + + | Blood - Blood | + + + + + + + | Performing | Address | City/State/Zipcode | Phone Number | | Organization | | | | + + + + + | [facility] | [address] | [place], [place] | | | [facility] | | [address] | | + + + + + [...] by | | | | | | [address] | | | | | | [address], [facility] | | | | | | [address] | | | | | | [phone].[employer]. | | | | | | Torey [...] + | [facility] | [address] | [place], [place] | | | [facility] | | [address] | | + + + + + [...] | | | (CHAYO), IgG by BEATRICE CHAOY | | | | | | specimens [...] by | | | | | | [address] | | | | | | [address], [facility] | | | | | | [address] | | | | | | [phone].[employer]. | | | | | | yoni, Torey Gupta, | | | | | | , Lab. Director | | | | + + + + + + + + | Specimen | + + | Blood - Blood | + + + + + + + | Performing | Address | City/State/Zipcode | Phone Number | | Organization | | | | + + + + + | [facility] | [address] | [place], [place] | | | [facility] | | [address] | | + + + + + [...] | | | | | | | [email or web address] | | | | | | 001Performed by [facility] | | | | | | [facility],[address] | | | | | | [place], [facility] [address] | | | | | | [phone].[employer]. | | | | | | Torey [...] [facility] | [address] | [place], [place] | | | [facility] | | [address] | | + + + + + documented in this encounter Visit Diagnoses + + | Diagnosis | + + | Optic neuritis, left Optic neuritis, unspecified | + + documented in this encounter"
--- OUTSIDE RECORDS SUMMARY | ~2019-08-24 | XMS | Encounter Summary ---
Demographics + + + | Address | [address] | | | [place] [address] | + + + | Home Phone | | + + + | Preferred Language | Unknown | + + + | Marital Status | Single | + + + | Holiness Affiliation | Unknown | + + + | Race | White | + + + | Ethnic Group | or | + + + Author + + + | Author | [facility] | + + + | Organization | [facility] | + + + | Address | Unknown | + + + | Phone | Unavailable | + + + Support + + +---------+ + | Name | Relationship | Address | Phone | + + +---------+ + | Rosalind Kang | ECON | Unknown | | + + +---------+ + Care Team Providers + +------+ + | Care Children'S Author Name | Role | Phone | + [...] Care Coordination | | 2016 | | [place] | [address] | | | | | Neuro-Ophthalmology | [place], [place] | | | | | at [facility] [address] | [address] | | | | | Yesica Mailcode: JOSEPH | [phone] | | | | | [facility] | | | | | | and Cedric, | | | | | | Building | | | | | | Floor [place], [place] | | | | | | [address] | | | | | | [phone] | | | +--------+ + + + [...]
--- OUTSIDE RECORDS SUMMARY | ~2019-08-24 | XMS | Encounter Summary ---
Demographics + + + | Address | [address] | | | [place] [address] | + + + | Home Phone | | + + + | Preferred Language | Unknown | + + + | Marital Status | Single | + + + | Jainism Affiliation | Unknown | + + + | Race | Unknown | + + + | Ethnic Group | Unknown | + + + Author + + + | Author | [facility] | | | and [place] | + + + | Organization | [facility] | | | and Lamineana [...] Team Providers + +------+ + | Care Steep Tender Name | Role | Phone | [...] Provider Unknown | | | | | [place], [place] | | | | | | [address] | (Fax) | | | | | [...]
--- OUTSIDE RECORDS SUMMARY | ~2019-08-24 | XMS | Encounter Summary ---
Demographics + + + | Address | [address] | | | [place] [address] | + + + | Home Phone | | + + + | Preferred Language | Unknown | + + + | Marital Status | Single | + + + | Restoration Affiliation | Unknown | + + + | Race | Unknown | + + + | Ethnic Group | Unknown | + + + Author + + + | Author | [facility] | | | and [place] | + + + | Organization | [facility] | | | and [place]amineana [...] Team Providers + +------+ + | Care Associate Merchandiser Name | Role | Phone | + +------+ + PCP | Unavailable | + +------+ + Encounter Details +--------+ + + + + | Date | Type | Department | Care Team | Description | +--------+ + + + + | 09/15/ | Hospital | [facility] | Tristen Jensen | NSTEMI (non-ST | | 2012 - | Encounter | [facility] | MD Julio [address] | elevated myocardial | | | | CARE FLOOR 4 8 | [facility] | infarction) (HCC); | | 09/17/ | | [address] | [place] [address] | Chest pain | | 2012 | | [place], [place] | [phone] | | | | | [address] | | | | | | [phone] | | | +--------+ + + + [...] Date of Service: 09/17/12 1116 Status: Signed Ultrasound Sonographer: Yasmine Cyr MD (Physician) Related Notes: Original Note by Yasmine Cyr MD (Physician) filed at 09/17/12 1121 Patient ID: Juan Carlos Desouza [id number] y.o. 1980 Admit date: 09/15/2012 Discharge [...] - 99 mg/dL Final Testing performed at [facility];[address] [place] [address];[place] [address] BUN Date Value Range Status 09/17/2012 6* 8 - 25 mg/dL Final Testing performed at [facility];[address] [place] [address];[place] [address] CREATININE Date Value Range Status 09/17/2012 0.81 0.50 - 1.00 mg/dL Final Testing performed at [facility];[address] [place] [address];[place] [address] BUN/CREAT Date Value Range Status 09/17/2012 8 Final Testing performed at [facility];[address] [place] [address];[place] [address] TOTAL PROTEIN Date Value Range Status 09/17/2012 7.6 6.3 - 8.2 g/dL Final Testing performed at [facility];[address] [place] [address];[place] [address] GLOBULIN Date Value Range Status 09/17/2012 4.5 1.3 - 4.9 g/dL Final Testing performed at [facility];[address] [place] [address];[place] [address] TBIL Date Value Range Status 09/17/2012 0.2 0.1 - 1.5 mg/dL Final Testing performed at [facility];[address] [place] [address];[place] [address] ALT Date Value Range Status 09/17/2012 26 10 - 65 U/L Final Testing performed at [facility];[address] [place] [address];[place] [address] AST Date Value Range Status 09/17/2012 32 10 - 45 U/L Final Testing performed at [facility];[address] [place] [address];[place] [address] SODIUM Date Value Range Status 09/17/2012 143 135 - 143 mmol/L Final Testing performed at [facility];[address] [place] [address] POTASSIUM Date Value Range Status 09/17/2012 4.0 3.5 - 4.9 mmol/L Final Testing performed at [facility];[address] [facility] [address] CHLORIDE Date Value Range Status 09/17/2012 109 99 - 109 mmol/L Final Testing performed at [facility];[address] [facility];[place] [address] CO2 Date Value Range Status 09/17/2012 25 23 - 32 mmol/L Final Testing performed at [facility];[address] [place] [address];[place] [address] ANION GAP AGAP Date Value Range Status 09/17/2012 13 5 - 20 mmol/L Final Testing performed at [facility];[address] [place] [address];[place] [address] Ct Chest Pulmonary Embolism With Contrast 09/16/2012 [...] likely infectious or inflammatory in nature. IMPRES LILYL: 1. Negative for pulmonary embolism. 2. Minimal [...] Duplex and color flow Doppler evaluation of e bilateral lower extremity deep venous system. [...] catheterizatio n for further evaluation of the zhx-SR-rytajqnjc CO. DESCRIPTION OF PROCEDURE The procedure details, alternatives and complications were explained to the patient. Informed consent was obtained. The patient was brought to the room and prepped in sterile fashion. Timeout was p erformed. Conscious sedation administered by independent observer. The right wrist was anes thetized with 1% lidocaine. The right radial artery was cannulized with 6-Malian Terumo pereira th. Then 2.5 mg verapamil, 200 mcg nitroglycerin and 5000 international units heparin given through the sheath. Over a 260 exchange wire, a diagnostic 5-Malian JL4 catheter advanced to the ascending aorta, selectively engaging the left main. Contrast was injected. Selective a ngiogram for the left main, LAD, left circumflex artery performed in different views. Over a guide wire, it was exchanged for a 5-Malian diagnostic JR4 catheter, selectively engaged th e RCA, contrast was injected and selective angiogram for the RCA was performed in different views. Over a guide wire, it was exchanged for a 5-Malian angled pigtail catheter, advanced to the left ventricle, and left ventriculogram was performed in the JACOME view. Over a guide w ramy, it was pulled out of the body. [...] erforming Physician: Kye Sears MD INDICATIONS ACUTE CO/ ELEVATED TROPONIN CONCLUSIONS 1. O verall left ventricular systolic function is normal with, an EF between 60 - 65 %. 2. No reg ional wall motion abnormalities. 3. The diastolic filling pattern is normal for the age of t he patient. 4. There is no evidence of [...] age of the patient. Right Ventricle: T he right ventricle is normal in size and [...] ml D-E Excur lilly: 1.91 cm E-F [place]: 0.09 m/s EPSS: 0.69 cm IVC diameter: [...] TV A Jc: 0.51 m/s TV Dec [place]: 2.91 m/s2 TV Dec Time: 264.84 ms TV E Jc: 0.77 m/s TV E/A Ratio: 1.50 Watch Train Assembler: CARLOS A Authenticated by: Kye Sears MD [...] was brought to the emergency department at [facility]. The patient was pain free on arrival. The patient's EKG at [facility] emergency depar tment prior to transfer showed [...] c lean arteries. Hence her workup in [facility] is negative for any PE or any [...] Patient Instructions on file for this visit. Nguyen Carney MD [address] [facility] [address] [facility] [address] in 1 week Signed: YASMINE CYR 09/17/2012 11:16 AM documented in this en counter Progress Notes Conversion Transaction, Provider Unknown - 09/17/2012 5:09 PM PDTFormatting of this note m ight be different from the original. Progress Notes by Maty Lopez RN at 09/17/121708 Author: Maty Lopez RN Service: (none) Author Type: Registered Nurse Filed: 09/17/121710 Date of Service: 09/17/121708 Status: Signed Ultrasound Sonographer: Maty Lopez RN (Registered Nurse) Pt d/c home w/family via private vehicle. R Radial Cath site CDI. Pt vitals stable w/no c/o pain. Written & oral d/c instructions and prescriptions given. Pt & family w/no further que stions at this time. MATY LOPEZ RN onver lilly Transaction, Provider Unknown - 09/17/2012 3:50 PM PDT Progress Notes by Maty Lopez RN at 09/17/12 608 Author: Maty Lopez RN Service: (none) Author Type: Registered Nurse Filed: 09/17/121706 Date of Service: 09/17/12 137 Status: Signed Ultrasound Sonographer: Maty Lopez RN (Registered Nurse) RN began [...] Date of Service: 09/16/12 1537 Status: Signed Ultrasound Sonographer: Ghulam Machuca RN (Registered Nurse) Received phone call from Dr. Cyr- updated him on patient's plan. Ghulam Machuca RN 3 3:38 PM asmine Cyr MD - 09/16/2012 3:36 PM PDTFormatting of this note might be different from the or iginal. Progress Notes by Yasmine Cyr MD at 09/16/12 1536 Author: Yasmine Cyr MD Service: Hospitalist Author Type: Physician Filed: 09/19/12 1638 Date of Service: 09/16/12 1536 Status: Signed Ultrasound Sonographer: Yasmine Cyr MD (Physician) Related Notes: Original Note by Yasmine Cyr MD (Physician) filed at 09/16/12 1545 [facility] Service: Hospitalist Progress Note Juan Carlos Desouza 32 y.o. 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 Blood work showed elevated troponin and the patient was transferred to [facility]. On arrival to the emergency department the [...] Procedure Component Value Units Date/Time Troponin I [[id number]] (Abnormal) Collected:09/16/12 1017 Specimen Information:Blood Updated:09/16/12 1245 TROPONIN I 3.81 (HH) ng/mL , urine [[id number]] Collected:09/16/12 1140 Specimen Information:Urine / Urine, Clean Catch Updated:09/16/12 1201 Preg Test, Ur NEGATIVE Iron panel [[id number]] (Abnormal) Collected:09/16/12 101 Specimen Information:Blood Updated:09/16/12 1143 IRON 70 ug/dL TIBC 521 (H) ug/dL IRON % SAT 13 (L) % Ferritin [[id number]] Collected:09/16/121016 Specimen Information:Blood Updated:09/16/12 1143 FERRITIN 8 ng/mL Folate [[id number]] Collected:09/16/12 101 Specimen Information:Blood Updated:09/16/12 1143 FOLATE 29.2 ng/mL Lipid panel [[id number]] (Abnormal) Collected:09/16/12 101 Specimen Information:Blood Updated:09/16/12 1143 CHOLESTEROL 211 (H) mg/dL Triglycerides 162 (H) mg/dL HDL CHOL 63 mg/dL LDL CALC 116 (H) mg/dL Vitamin B12 [[id number]] Collected:09/16/12 101 Specimen Information:Blood Updated:09/16/12 1044 Troponin I [[id number]] (Abnormal) Collected:09/16/12247 Specimen Information:Blood Updated:09/16/12 034 TROPONIN I 6.41 (HH) ng/mL Magnesium [[id number]] Collected:09/16/12247 MAGNESIUM 1.9 mg/dL Updated:09/16/12346 Phosphorus [[id number]] Collected:09/16/12247 PHOSPHORUS 3.2 mg/dL Updated:09/16/12346 TSH [[id number]] Collected:09/16/12247 TSH 2.53 uIU/mL Updated:09/16/12346 Basic metabolic panel [[id number]] (Abnormal) Collected:09/16/12247 SODIUM 145 (H) mmol/L Updated:06/01/13 0347 POTASSIUM 3.4 (L) mmol/L CHLORIDE 109 mmol/L CO2 25 mmol/L ANION GAP AGAP 14 mmol/L GLUCOSE 105 (H) mg/dL BUN 10 mg/dL CREATININE 0.82 mg/dL BUN/CREAT 12 CALCIUM 8.7 mg/dL EGFR >60 mL/min/1.73m2 aPTT [[id number]] (Abnormal) Collected:09/16/128 Specimen Information:Blood Updated:09/16/12338 APTT 36 (H) seconds CBC w/auto diff (reflex to manual) [[id number]] (Abnormal) Collected:09/16/12247 WBC 6.1 K/uL Updated:09/16/12314 RBC [...] K/uL BASOPHILS ABS 0.0 K/uL Cardiac Panel [[id number]] (Abnormal) Collected:09/15/122026 WBC 7.8 K/uL Updated:09/15/12 2100 [...] 36.1 (H) ng/mL CK-MB Index 9.0 BNP [[id number]] Collected:09/15/122026 Specimen Information:Blood Updated:09/15/122055 BRAIN NATRIURETIC PEPTIDE 36.6 pg/mL D-dimer, quantitative [[id number]] (Abnormal) Collected:09/15/122026 Specimen Information:Blood Updated:09/15/122044 D DIMER,QUANT [...] Notes by Ghulam Machuca RN at 09/16/12 1535 Author: Ghulam Machuca RN Service: (none) Author Type: Registered Nurse Filed: 09/16/12 1537 Date of Service: 09/16/12 1535 Status: Signed Ultrasound Sonographer: Ghulam Machuca RN (Registered Nurse) Spoke with [...] Date of Service: 09/16/12 1524 Status: Signed Ultrasound Sonographer: Ghulam Machuca RN (Registered Nurse) Spoke with [...] Notes by Ghulam Machuca RN at 09/16/12 1300 Author: Ghulam Machuca RN Service: (none) Author Type: Registered Nurse Filed: 09/16/12 1309 Date of Service: 09/16/12 1303 Status: Signed Ultrasound Sonographer: Ghulam Machuca RN (Registered Nurse) Clarified order [...] Nurse Filed: 09/16/12 1058 Date of Service: 09/16/121056 Status: Signed Ultrasound Sonographer: Ghulam Machuca RN (Registered Nurse) Paged and spoke with Dr. Cyr. He states urine test ok for clearance prior to C T test. Ghulam Machuca RN 09/16/2012 10:58 AM onver lilly Transaction, Provider Unknown - 09/16/2012 12:30 AM PDT Progress Notes by Netta Phillips RN at 09/16/12 003 Author: Netta Phillips RN Service: (none) Author Type: Registered Nurse Filed: 09/16/12 0705 Date of Service: 09/16/1229 Status: Signed Ultrasound Sonographer: Netta Phillips RN (Registered Nurse) heparin in D5W 50 units/mL infusion Order Information Sent: 09/15/20120 - Other Status: Done 09/16/2012 003 by Palak Banks RPH Message: This heparin shouldn't have been discontinued. Rx Comment: I spoke with Dr. Abdi n - please stop the drip (already discontinued) and continue the ordered subcutaneous hepari n. Thanks. Concerned about cancelled heparin gtt. Notified pharmacy and received above message from Marj Banks RPH that order was verified with Dr. Jensen. Netta Laird RN onver lilly Transaction, Provider Unknown - 09/15/2012 11:32 PM PDT Progress Notes by Palak Banks RPH at 09/15/12 2332 Author: Palak Banks RPH Service: (none) Author Type: Pharmacist Filed: 09/15/122331 Date of Service: 09/15/122331 Status: Signed Ultrasound Sonographer: Palak Banks RPH (Pharmacist) Clinical Pharmacy Note: [...] in renal function and adjust accordingly. Palak Banks PharmD 09/15/2012 11:31 PM docume nted in this encounter Plan of [...] further | | | evaluation of the llz-GF-yxhmwuxze CO. DESCRIPTION OF PROCEDURE | | | The [...] | | radial artery was cannulized with 6-Malian Terumo sheath. Then 2.5 mg | | | verapamil, 200 mcg nitroglycerin and 5000 international units | | | heparin given through the sheath. Over a 260 exchange wire, a | | | diagnostic 5-Malian JL4 catheter advanced to the ascending aorta, | | | selectively engaging the left main. Contrast was injected. Selective | | | angiogram for the left main, LAD, left circumflex artery performed in | | | different views. Over a guide wire, it was exchanged for a 5-Malian | | | diagnostic JR4 catheter, selectively engaged the RCA, contrast was | | | injected and selective angiogram for the RCA was performed in | | | different views. Over a guide wire, it was exchanged for a 5-Malian | | | angled pigtail catheter, advanced to the left ventricle, and left | | | ventriculogram was performed in the JACOME view. Over a guide wire, it | | | was pulled out of the body. Sheath was removed. TR band was applied | | | with good hemostasis. The patient was transferred to the [facility] | | | area in stable condition. FINDINGS HEMODYNAMICS 1. Systemic [...] for further evaluation of the | | eom-VN-tfruozbwt CO. | | | | DESCRIPTION OF PROCEDURE [...] radial | | artery was cannulized with 6-Malian Terumo sheath. Then 2.5 mg verapamil, | | 200 mcg nitroglycerin and 5000 international units heparin given through | | the sheath. Over a 260 exchange wire, a diagnostic 5-Malian JL4 catheter | | advanced to the ascending aorta, selectively engaging the left main. | | Contrast was injected. Selective angiogram for the left main, LAD, left | | circumflex artery performed in different views. Over a guide wire, it was | | exchanged for a 5-Malian diagnostic JR4 catheter, selectively engaged the | | RCA, contrast was injected and selective angiogram for the RCA was | | performed in different views. Over a guide wire, it was exchanged for a | | 5-Malian angled pigtail catheter, advanced to the left [...] | | | | | INDICATIONS ACUTE CO/ ELEVATED TROPONIN CONCLUSIONS | | | 1. [...] | | D-E Excursion: 1.91 cm E-F [place]: 0.09 m/s EPSS: 0.69 cm | | [...] TV A Jc: 0.51 m/s TV Dec [place]: 2.91 | | | m/s2 TV Dec Time: 264.84 ms TV E Jc: 0.77 m/s TV E/A Ratio: | | | 1.50 Watch Train Assembler: CARLOS A Authenticated by: Kye Sears MD | | | Report Date/Time: 09-16-2012 19:44:25 | | + + + + + | Procedure Note | + + | Adan Welch Conversion - 12/08/2018 6:27 PM PDT Patient Name: Mary Ellen DESOUZA of | | : 1980 Performing Physician: Kye Sears | | MD INDICATIONS A | | CUTE CO/ ELEVATED TROPONIN CONCLUSIONS 1. Overall left ventricular [...] mlLAESV Index (A-L): 18.37 ml/m2LAAs A2C: 15.76 [id number] A-L | | A2C: 43.99 mlLALs A2C: 4.79 cmLAAs A4C: 13.03 [id number] A-L A4C: 29.55 mlLALs | | A4C: 4.87 cmAo Diam: 3.45 cmAV Cusp: 2.28 cmLA Diam: 3.19 cmLA/Ao: 0.92%FS: | | 38 %EDV(Teich): 136.47 mlEF(Teich): 67.71 %ESV(Teich): 44.06 mlIVSd: 0.85 | | cmIVSs: 1.11 cmLVIDd: 5.31 cmLVIDs: 3.29 cmLVPWd: 1.06 cmLVPWs: 1.48 | | cmSV(Teich): 92.41 mlD-E Excursion: 1.91 cmE-F Colusa: 0.09 m/sEPSS: 0.69 cmIVC | | diameter: 1.43 cmIVC collapse: 0.31 cmIVC % collapse: 76.33 %HR: 61.24 BPMAV | | maxP.76 mmHgAV meanP.03 mmHgAV Vmax: 1.30 m/Emily Vmean: 0.82 m/Emily VTI: | | 27.60 cmAVA Vmax: 3.25 cm2AVA (VTI): 3.64 [id number] Dopp: 3.44 l/[id number] Dopp: | | 6.81 l/minHR: 67.62 BPMLVOT [...] 2.32 m/sTV A Jc: 0.51 m/sTV Dec Colusa: 2.91 m/s2TV Dec Time: | | 264.84 msTV E Jc: 0.77 m/sTV E/A Ratio: 1.50 Watch Train Assembler: SHANEuthenticated by: Kye | | Alqaisi MDReport [...] | |D-E Excursion: 1.91 cm | |E-F [place]: 0.09 m/s | |EPSS: 0.69 cm | [...] A Jc: 0.51 m/s | |TV Dec [place]: 2.91 m/s2 | |TV Dec Time: 264.84 ms | |TV E Jc: 0.77 m/s | |TV E/A Ratio: 1.50 | | | |Watch Train Assembler: ANDREAW | |Authenticated by: Kye Sears MD | [...] - 12/08/2018 6:27 PM PDT [facility] | | EMBOLISM W CONTRAST [...] + + | Historically converted procedure from [facility] | EXTERNAL LAB | + + [...] (500), | | | | | | pictures editor GUDELIA BRO | | | | | | (4) on 09/16/2012 6:10:21 | | | | | | AM | | | | + + + + + + + + | Specimen | + + | | + + + + + | Narrative | Performed At | + + + | Historically converted procedure from [facility] environment | EXTERNAL LAB | + + [...]
--- OUTSIDE RECORDS SUMMARY | ~2019-08-24 | XMS | Encounter Summary ---
Demographics + + + | Address | [address] | | | [place] [address] | + + + | Home Phone | | + + + | Preferred Language | Unknown | + + + | Marital Status | Single | + + + | Hoahaoism Affiliation | Unknown | + + + | Race | White | + + + | Ethnic Group | or | + + + Author + + + | Author | [facility] | + + + | Organization | [facility] | + + + | Address | Unknown | + + + | Phone | Unavailable | + + + Support + + +---------+ + | Name | Relationship | Address | Phone | + + +---------+ + | Rosalind Kang | ECON | Unknown | | + + +---------+ + Care Team Providers + +------+ + | Care Adventure Therapist Name | Role | Phone | + [...] | | | | | [place] | [place], [place] | | | | | | [address] | [address] | | | | | | [address] | Phone: | | | | | | [place], | [phone] | | | | | | [place] [address] | Fax: | | | | | | Phone: | [phone] | | | | | | [phone] | | | | | | | Fax: | | | | | | | [phone] | | +--------+--------+ + + + + Encounter Details +--------+---------+ + + + | Date | Type | Department | Care Team | Description | +--------+---------+ + + + | 12/08/ | Office | [facility] | Idania De La Cruz, | Optic neuritis, left | | 2015 | Visit | [place] | [address] | (Primary Dx) | | | | Neuro-Ophthalmology | [place], [place] | | | | | at [facility] [address] | [address] | | | | | [address] Mailcode: JO[place]PH | [phone] | | | | | [facility] | | | | | | and Healing, | | | | | | Building | | | | | | Floor [facility] [place] | | | | | | [address] | | | | | | [phone] | | | +--------+---------+ + + + [...] Neuro-Ophthalmology New Patient Evaluation Referred by: Héctor Cunningham OD Source of History: patient Chief Complaint: Severe vision loss, left eye New patient referred urgently for optic neuritis. New onset of left-sided frontal headache and eye pain 3 weeks ago. 3 days later, then visio n became blurred in left eye. Ovder the following week, the eye became blind. Susan was see n at [facility] on 12/04/2015 for vision loss, left eye. [...] Additional Tests Color Right Left Carras[place]illo - [place] - Rittler 8.5/10 0/10 Slit Lamp and [...] next week with an update Attestations: The utility locate technician, under the supervision of the physician, is responsible for performing the f ollowing sections: RFV, ROS, PMH, PSH, SocHx, FH, Med list, Base Ophth Exam. The attending physician is responsible for the entire content of the note, has reviewed the data gathered by the utility locate technician, and has personally performed the HPI, the physical examina tion, and the medical decision making. Idania De La Cruz MD Lisette Borden 12/09/2015 10:15 AM Sally FLOWER, performed, reviewed and revised the above history, [...] | + + + + + | [facility] - | [address] | [place] [address] | | | [facility] | | | | + + + [...] by | | | | | | [address] | | | | | | Carlos Muller, [facility],[place] | | | | | | [address] | | | | | | [phone].[facility]. | | | | | | Torey [...] [facility] | [address] | [place], [place] | | | [facility] | | [address] | | + + + + + [...] by | | | | | | [address] | | | | | | Aneudynellie Muller, [facility],[place] | | | | | | [address] | | | | | | [phone].[facility]. | | | | | | Torey [...] [facility] | [address] | [place], [place] | | | [facility] | | [address] | | + + + + + [...] by | | | | | | [address] | | | | | | Carlos Muller, [facility],[place] | | | | | | [address] | | | | | | [phone].[facility]. | | | | | | yoni, [...] [facility] | [address] | [place], [place] | | | [facility] | | [address] | | + + + + + [...] | | | | | | | [email or web address] | | | | | | 001Performed by [facility] | | | | | | [facility],[address] | | | | | | [place] [address] | | | | | | [phone].[facility]. | | | | | | Torey [...] [facility] | [address] | [place], [place] | | | [facility] | | [address] | | + + + + + documented in this encounter Visit Diagnoses + + | Diagnosis | + + | Optic neuritis, left - Primary Optic neuritis, unspecified | + + documented in this encounter
--- OUTSIDE RECORDS SUMMARY | ~2019-08-24 | XMS | Encounter Summary ---
Demographics + + + | Address | [address] | | | [place] [address] | + + + | Home Phone | | + + + | Preferred Language | Unknown | + + + | Marital Status | Single | + + + | Christianity Affiliation | Unknown | + + + | Race | Unknown | + + + | Ethnic Group | Unknown | + + + Author + + + | Author | [facility] | | | and [place]amine[place] | + + + | Organization | [facility] | | | and [...] Team Providers + +------+ + | Care Division Order Analyst Name | Role | Phone | + +------+ + PCP | Unavailable | + +------+ + Encounter Details +--------+ + + + + | Date | Type | Department | Care Team | Description | +--------+ + + + + | 09/15/ | Hospital | [facility] | Tristen Jensen | NSTEMI (non-ST | | 2012 - | Encounter | [facility] | MD Julio 1111 | elevated myocardial | | | | CARE FLOOR 4 8 | [facility] | infarction) (HCC); | | 09/17/ | | MARTIN IZQUIERDOVD | [place] [address] | Chest pain | | 2012 | | [place], [place] | [phone] | | | | | [address] | | | | | | [phone] | | | +--------+ + + + [...] Date of Service: 09/17/12 1116 Status: Signed Bariatric Nurse: Yasmine Cyr MD (Physician) Related Notes: Original Note by Yasmine Cyr MD (Physician) filed at 09/17/12 1121 Patient ID: Juan Carlos Desouza [id number] y.o. 1980 Admit date: 09/15/2012 Discharge [...] - 99 mg/dL Final Testing performed at [facility];[address] [place] [address];[place] [address] BUN Date Value Range Status 09/17/2012 6* 8 - 25 mg/dL Final Testing performed at [facility];[address] [place] [address];[place] [address] CREATININE Date Value Range Status 09/17/2012 0.81 0.50 - 1.00 mg/dL Final Testing performed at [facility];[address] [place] [address];[place] [address] BUN/CREAT Date Value Range Status 09/17/2012 8 Final Testing performed at [facility];[address] [place] [address];[place] [address] TOTAL PROTEIN Date Value Range Status 09/17/2012 7.6 6.3 - 8.2 g/dL Final Testing performed at [facility];[address] [place] [address];[place] [address] GLOBULIN Date Value Range Status 09/17/2012 4.5 1.3 - 4.9 g/dL Final Testing performed at [facility];[address] [place] [address];[place] [address] TBIL Date Value Range Status 09/17/2012 0.2 0.1 - 1.5 mg/dL Final Testing performed at [facility];[address] [place] [address];[place] [address] ALT Date Value Range Status 09/17/2012 26 10 - 65 U/L Final Testing performed at [facility];[address] [place] [address];[place] [address] AST Date Value Range Status 09/17/2012 32 10 - 45 U/L Final Testing performed at [facility];[address] [place] [address];[place] [address] SODIUM Date Value Range Status 09/17/2012 143 135 - 143 mmol/L Final Testing performed at [facility];[address] [place] [address] POTASSIUM Date Value Range Status 09/17/2012 4.0 3.5 - 4.9 mmol/L Final Testing performed at [facility];[address] [facility] [address] CHLORIDE Date Value Range Status 09/17/2012 109 99 - 109 mmol/L Final Testing performed at [facility];[address] [facility];[place] [address] CO2 Date Value Range Status 09/17/2012 25 23 - 32 mmol/L Final Testing performed at [facility];[address] [place] [address];[place] [address] ANION GAP AGAP Date Value Range Status 09/17/2012 13 5 - 20 mmol/L Final Testing performed at [facility];[address] [place] [address];[place] [address] Ct Chest Pulmonary Embolism With Contrast 09/16/2012 [...] catheterizatio n for further evaluation of the rrx-JJ-ozxjijiah NC. DESCRIPTION OF PROCEDURE The procedure details, alternatives and complications were explained to the patient. Informed consent was obtained. The patient was brought to the room and prepped in sterile fashion. Timeout was p erformed. Conscious sedation administered by independent observer. The right wrist was anes thetized with 1% lidocaine. The right radial artery was cannulized with 6-Samoan Terumo pereira th. Then 2.5 mg verapamil, 200 mcg nitroglycerin and 5000 international units heparin given through the sheath. Over a 260 exchange wire, a diagnostic 5-Samoan JL4 catheter advanced to the ascending aorta, selectively engaging the left main. Contrast was injected. Selective a ngiogram for the left main, LAD, left circumflex artery performed in different views. Over a guide wire, it was exchanged for a 5-Samoan diagnostic JR4 catheter, selectively engaged th e RCA, contrast was injected and selective angiogram for the RCA was performed in different views. Over a guide wire, it was exchanged for a 5-Samoan angled pigtail catheter, advanced to the left ventricle, and left ventriculogram was performed in the JACOME view. Over a guide w army, it was pulled out of the body. [...] erforming Physician: Kye Sears MD INDICATIONS ACUTE NC/ ELEVATED TROPONIN CONCLUSIONS 1. O verall left [...] ml D-E Excur lilly: 1.91 cm E-F Atkinson: 0.09 m/s EPSS: 0.69 cm IVC diameter: [...] TV A Jc: 0.51 m/s TV Dec Atkinson: 2.91 m/s2 TV Dec Time: 264.84 ms TV E Jc: 0.77 m/s TV E/A Ratio: 1.50 Manager Sql: CARLOS A Authenticated by: Kye Sears MD [...] was brought to the emergency department at [facility]. The patient was pain free on arrival. The patient's EKG at [facility] emergency depar tment prior to transfer showed [...] c lean arteries. Hence her workup in [facility] is negative for any PE or [...] for this visit. Nguyen Carney MD [address] [facility] [address] [facility] [address] in 1 week Signed: YASMINE CYR 09/17/2012 11:16 AM documented in this en counter Progress Notes Conversion Transaction, Provider Unknown - 09/17/2012 5:09 PM PDTFormatting of this note m ight be different from the original. Progress Notes by Maty Lopez RN at 09/17/121708 Author: Maty Lopez RN Service: (none) Author Type: Registered Nurse Filed: 09/17/121710 Date of Service: 09/17/121708 Status: Signed Bariatric Nurse: Maty Lopez RN (Registered Nurse) Pt d/c home w/family via private vehicle. R Radial Cath site CDI. Pt vitals stable w/no c/o pain. Written & oral d/c instructions and prescriptions given. Pt & family w/no further que stions at this time. MATY LOPEZ RN onver lilly Transaction, Provider Unknown - 09/17/2012 3:50 PM PDT Progress Notes by Maty Lopez RN at 09/17/12 544 Author: Maty Lopez RN Service: (none) Author Type: Registered Nurse Filed: 09/17/121706 Date of Service: 09/17/12 455 Status: Signed Bariatric Nurse: Maty Lopez RN (Registered Nurse) RN began [...] Date of Service: 09/16/12 1537 Status: Signed Bariatric Nurse: Ghulam Machuca RN (Registered Nurse) Received phone [...] Date of Service: 09/16/12 1536 Status: Signed Bariatric Nurse: Yasmine Cyr MD (Physician) Related Notes: Original Note by Yasmine Cyr MD (Physician) filed at 09/16/[address] [facility] Service: Hospitalist Progress Note Juan Carlos Desouza 32 y.o. 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 Blood work showed elevated troponin and the patient was transferred to [facility]. On arrival to the emergency department the [...] Procedure Component Value Units Date/Time Troponin I [[id number]] (Abnormal) Collected:09/16/12 1017 Specimen Information:Blood Updated:09/16/12 1245 TROPONIN I 3.81 (HH) ng/mL , urine [[id number]] Collected:09/16/12 1140 Specimen Information:Urine / Urine, Clean Catch Updated:09/16/12 1201 Preg Test, Ur NEGATIVE Iron panel [[id number]] (Abnormal) Collected:09/16/12 101 Specimen Information:Blood Updated:09/16/12 1143 IRON 70 ug/dL TIBC 521 (H) ug/dL IRON % SAT 13 (L) % Ferritin [[id number]] Collected:09/16/121016 Specimen Information:Blood Updated:09/16/12 1143 FERRITIN 8 ng/mL Folate [[id number]] Collected:09/16/12 101 Specimen Information:Blood Updated:09/16/12 1143 FOLATE 29.2 ng/mL Lipid panel [[id number]] (Abnormal) Collected:09/16/12 101 Specimen Information:Blood Updated:09/16/12 1143 CHOLESTEROL 211 (H) mg/dL Triglycerides 162 (H) mg/dL HDL CHOL 63 mg/dL LDL CALC 116 (H) mg/dL Vitamin B12 [[id number]] Collected:09/16/12 101 Specimen Information:Blood Updated:09/16/12 1044 Troponin I [[id number]] (Abnormal) Collected:09/16/12247 Specimen Information:Blood Updated:09/16/12 034 TROPONIN I 6.41 (HH) ng/mL Magnesium [[id number]] Collected:09/16/12247 MAGNESIUM 1.9 mg/dL Updated:09/16/12346 Phosphorus [[id number]] Collected:09/16/12247 PHOSPHORUS 3.2 mg/dL Updated:09/16/12346 TSH [[id number]] Collected:09/16/12247 TSH 2.53 uIU/mL Updated:09/16/12346 Basic metabolic panel [[id number]] (Abnormal) Collected:09/16/12247 SODIUM 145 (H) mmol/L Updated:06/01/13 0347 POTASSIUM 3.4 (L) mmol/L CHLORIDE 109 mmol/L CO2 25 mmol/L ANION GAP AGAP 14 mmol/L GLUCOSE 105 (H) mg/dL BUN 10 mg/dL CREATININE 0.82 mg/dL BUN/CREAT 12 CALCIUM 8.7 mg/dL EGFR >60 mL/min/1.73m2 aPTT [[id number]] (Abnormal) Collected:09/16/128 Specimen Information:Blood Updated:09/16/12338 APTT 36 (H) seconds CBC w/auto diff (reflex to manual) [[id number]] (Abnormal) Collected:09/16/12247 WBC 6.1 K/uL Updated:09/16/12314 RBC [...] K/uL BASOPHILS ABS 0.0 K/uL Cardiac Panel [[id number]] (Abnormal) Collected:09/15/122026 WBC 7.8 K/uL Updated:09/15/12 2100 [...] 36.1 (H) ng/mL CK-MB Index 9.0 BNP [[id number]] Collected:09/15/122026 Specimen Information:Blood Updated:09/15/122055 BRAIN NATRIURETIC PEPTIDE 36.6 pg/mL D-dimer, quantitative [[id number]] (Abnormal) Collected:09/15/122026 Specimen Information:Blood Updated:09/15/122044 D DIMER,QUANT [...] 3:35 PM PDT Progress Notes by Ghulam Machcua RN at 09/16/12 1535 Author: Ghulam Machuca RN Service: (none) Author Type: Registered Nurse Filed: 09/16/12 1537 Date of Service: 09/16/12 1535 Status: Signed Bariatric Nurse: Ghulam Machuca RN (Registered Nurse) Spoke with [...] Date of Service: 09/16/12 1524 Status: Signed Bariatric Nurse: Ghulam Machuca RN (Registered Nurse) Spoke with [...] Notes by Ghulam Machuca RN at 09/16/12 1302 Author: Ghulam Machuca RN Service: (none) Author Type: Registered Nurse Filed: 09/16/12 1300 Date of Service: 09/16/12 1303 Status: Signed Bariatric Nurse: Ghulam Machuca RN (Registered Nurse) Clarified order [...] 1058 Date of Service: 09/16/121056 Status: Signed Bariatric Nurse: Ghulam Machuca RN (Registered Nurse) Paged and [...] 0705 Date of Service: 09/16/1229 Status: Signed Bariatric Nurse: Netta Phillips RN (Registered Nurse) heparin in [...] 09/15/122331 Date of Service: 09/15/122331 Status: Signed Bariatric Nurse: Palak Banks RPH (Pharmacist) Clinical Pharmacy Note: [...] further | | | evaluation of the fmb-YC-qoryottcj NC. DESCRIPTION OF PROCEDURE | | | The [...] | | radial artery was cannulized with 6-Samoan Terumo sheath. Then 2.5 mg | | | verapamil, 200 mcg nitroglycerin and 5000 international units | | | heparin given through the sheath. Over a 260 exchange wire, a | | | diagnostic 5-Samoan JL4 catheter advanced to the ascending aorta, | | | selectively engaging the left main. Contrast was injected. Selective | | | angiogram for the left main, LAD, left circumflex artery performed in | | | different views. Over a guide wire, it was exchanged for a 5-Samoan | | | diagnostic JR4 catheter, selectively engaged the RCA, contrast was | | | injected and selective angiogram for the RCA was performed in | | | different views. Over a guide wire, it was exchanged for a 5-Samoan | | | angled pigtail catheter, advanced to the left ventricle, and left | | | ventriculogram was performed in the JACOME view. Over a guide wire, it | | | was pulled out of the body. Sheath was removed. TR band was applied | | | with good hemostasis. The patient was transferred [facility] | | | area in stable condition. [...] for further evaluation of the | | bhf-WM-nqiudfcbw NC. | | | | DESCRIPTION OF PROCEDURE [...] radial | | artery was cannulized with 6-Samoan Terumo sheath. Then 2.5 mg verapamil, | | 200 mcg nitroglycerin and 5000 international units heparin given through | | the sheath. Over a 260 exchange wire, a diagnostic 5-Samoan JL4 catheter | | advanced to the ascending aorta, selectively engaging the left main. | | Contrast was injected. Selective angiogram for the left main, LAD, left | | circumflex artery performed in different views. Over a guide wire, it was | | exchanged for a 5-Samoan diagnostic JR4 catheter, selectively engaged the | | RCA, contrast was injected and selective angiogram for the RCA was | | performed in different views. Over a guide wire, it was exchanged for a | | 5-Samoan angled pigtail catheter, advanced to the left [...] | | | | | INDICATIONS ACUTE NC/ ELEVATED TROPONIN CONCLUSIONS | | | 1. [...] | | D-E Excursion: 1.91 cm E-F Atkinson: 0.09 m/s EPSS: 0.69 cm | | [...] TV A Jc: 0.51 m/s TV Dec Atkinson: 2.91 | | | m/s2 TV Dec Time: 264.84 ms TV E Jc: 0.77 m/s TV E/A Ratio: | | | 1.50 Manager Sql: CARLOS A Authenticated by: Kye Sears MD | | | Report Date/Time: 09-16-2012 19:44:25 | | + + + + + | Procedure Note | + + | Adan Welch Conversion - 12/08/2018 6:27 PM PDT Patient Name: Mary Ellen DESOUZA of | | : 1980 Performing Physician: Kye Sears | | MD INDICATIONS A | | CUTE NC/ ELEVATED TROPONIN CONCLUSIONS 1. Overall left ventricular [...] mlLAESV Index (A-L): 18.37 ml/m2LAAs A2C: 15.76 [id number] A-L | | A2C: 43.99 mlLALs A2C: 4.79 cmLAAs A4C: 13.03 [id number] A-L A4C: 29.55 mlLALs | | A4C: 4.87 cmAo Diam: 3.45 cmAV Cusp: 2.28 cmLA Diam: 3.19 cmLA/Ao: 0.92%FS: | | 38 %EDV(Teich): 136.47 mlEF(Teich): 67.71 %ESV(Teich): 44.06 mlIVSd: 0.85 | | cmIVSs: 1.11 cmLVIDd: 5.31 cmLVIDs: 3.29 cmLVPWd: 1.06 cmLVPWs: 1.48 | | cmSV(Teich): 92.41 mlD-E Excursion: 1.91 cmE-F Atkinson: 0.09 m/sEPSS: 0.69 cmIVC | | diameter: 1.43 cmIVC collapse: 0.31 cmIVC % collapse: 76.33 %HR: 61.24 BPMAV | | maxP.76 mmHgAV meanP.03 mmHgAV Vmax: 1.30 m/Emily Vmean: 0.82 m/Emily VTI: | | 27.60 cmAVA Vmax: 3.25 cm2AVA (VTI): 3.64 [id number] Dopp: 3.44 l/iwpm4XTPO Dopp: | | 6.81 l/minHR: 67.62 BPMLVOT [...] 2.32 m/sTV A Jc: 0.51 m/sTV Dec Atkinson: 2.91 m/s2TV Dec Time: | | 264.84 msTV E Jc: 0.77 m/sTV E/A Ratio: 1.50 Manager Sql: SHANEuthenticated by: Kye | | Alqaisi MDReport [...] | |D-E Excursion: 1.91 cm | |E-F Atkinson: 0.09 m/s | |EPSS: 0.69 cm | [...] A Jc: 0.51 m/s | |TV Dec Atkinson: 2.91 m/s2 | |TV Dec Time: 264.84 ms | |TV E Jc: 0.77 m/s | |TV E/A Ratio: 1.50 | | | |Manager Sql: ANDREAW | |Authenticated by: Kye Sears MD [...] + + | Historically converted procedure from [facility] | EXTERNAL LAB | + + + [...] (500), | | | | | | technical editor GUDELIA BRO | | | | | | (4) on 09/16/2012 6:10:21 | | | | | | AM | | | | + + + + + + + + | Specimen | + + | | + + + + + | Narrative | Performed At | + + + | Historically converted procedure from [facility] environment | EXTERNAL LAB | + + [...]
--- OUTSIDE RECORDS SUMMARY | ~2019-08-24 | XMS | Clinical Summary ---
Demographics + + + | Address | [address] | | | [place] [address] | + + + | Home Phone | | + + + | Preferred Language | Unknown | + + + | Marital Status | Single | + + + | Protestant Affiliation | Unknown | + + + | Race | Unknown | + + + | Ethnic Group | Unknown | + + + Author + + + | Author | [facility] | | | and [place] | + + + | Organization | [facility] | | | and [place] [...] Team Providers + +------+ + | Care Gypsum Block Setter Name | Role | Phone | + [...] | [employer] | [facility] | [id number] | | [phone] | | [employer] | [...] | 1980 | [phone] | [place] [address] | | | erika | | | 6 (Chromo) | | + +--------+ +--------+ + +"
--- OUTSIDE RECORDS SUMMARY | ~2019-08-24 | XMS | Encounter Summary ---
Demographics + + + | Address | [address] | | | [place] [address] | + + + | Home Phone [...] Team Providers + +------+ + | Care Fibreglass Laminator Name | Role | Phone | + [...] | | | | | Neuro-Ophthalmology | [place], [place] | | | | | at [facility] [address] | [address] | | | | | [address] Mailcode: JOSEPH | [phone] | | | | | [facility] | | | | | | and Healing, | | | | | | Building | | | | | | Floor [facility] [place] | | | | | | [address] | | | | | | [phone] | | | +--------+ + + + [...]
--- OUTSIDE RECORDS SUMMARY | ~2019-08-24 | XMS | Encounter Summary ---
Demographics + + + | Address | [address] | | | [place] [address] | + + + | Home Phone | | + + + | Preferred Language | Unknown | + + + | Marital Status | Single | + + + | Faith Affiliation | Unknown | + + + | Race | White | + + + | Ethnic Group | or | + + + Author + + + | Author | [facility] | + + + | Organization | [facility] | + + + | Address | Unknown | + + + | Phone | Unavailable | + + + Support + + +---------+ + | Name | Relationship | Address | Phone | + + +---------+ + | Rosalind Kang | ECON | Unknown | | + + +---------+ + Care Team Providers + +------+ + | Care Airframe Design Engineer Name | Role | Phone | + [...] | | | | | Neuro-Ophthalmology | [place], [place] | | | | | at [facility] [address] | [address] | | | | | [address] Mailcode: JOSEPH | [phone] | | | | | [facility] | | | | | | and Healing, | | | | | | Building | | | | | | Floor [facility] [place] | | | | | | [address] | | | | | | [phone] | | | +--------+ + + + [...]
--- OUTSIDE RECORDS SUMMARY | ~2019-08-24 | XMS | Encounter Summary ---
Demographics + + + | Address | [address] | | | [place] [address] | + + + | Home Phone [...] + + + | Author | [facility] | + + + | Organization | [facility] | + + + | Address | Unknown | + + + | Phone | Unavailable | + + + Support + + +---------+ + | Name | Relationship | Address | Phone | + + +---------+ + | Rosalind Kang | ECON | Unknown | | + + +---------+ + Care Team Providers + +------+ + | Care Senior Talent Management Consultant Name | Role | Phone | + +------+ + | Josephine Ruff | PCP | | + +------+ + Encounter Details +--------+------+ + + + | Date | Type | Department | Care Team | Description | +--------+------+ + + + | 12/08/ | Lab | Laboratory at [facility] | | Optic neuritis, left | | 2015 | | [address] | | | | | | [place], [place] | | | | | | [address] | | | | | | [phone] | | | +--------+------+ + + + [...] | + + + + + | [facility] - | [address] | [place] [address] | | | [place] | | | | + + + [...] by | | | | | | [address] | | | | | | Carlos Muller, [facility],[place] | | | | | | [address] | | | | | | [phone].Y-Klub. | | | | | | Torey [...] [facility] | [address] | [place], [place] | | | UN[facility] - INTFC | | [address] | | + + + + + [...] by | | | | | | [address] | | | | | | Carlos Muller, [facility],[place] | | | | | | [address] | | | | | | [phone].[email or web address]. | | | | | | Torey [...] [facility] | [address] | [place], [place] | | | [facility] | | [address] | | + + + + + [...] by | | | | | | [address] | | | | | | Carlos Renzo, [facility],[place] | | | | | | [address] | | | | | | [phone]-Klub. | | | | | | yoni, [...] [facility] | [address] | [place], [place] | | | UN[facility] INTFC | | [address] | | + + + + + [...] | | | | | | | [email or web address] | | | | | | 001Performed by [facility] | | | | | | [facility],[address] | | | | | | Ren[place], [facility],[place] [address] | | | | | | [phone].[email or web address]. | | | | | | Torey [...] [facility] | [address] | [place], [place] | | | UN[facility] | | [address] | | + + + + + documented in this encounter Visit Diagnoses + + | Diagnosis | + + | Optic neuritis, left Optic neuritis, unspecified | + + documented in this encounter"
--- OUTSIDE RECORDS SUMMARY | ~2019-08-24 | XMS | Clinical Summary ---
Demographics + + + | Address | [address] | | | [place] [address] | + + + | Preferred Language | Unknown | + + + | Marital Status | Legally | + + + | Christian Affiliation | Unknown | + + + | Race | Unknown | + + + | Ethnic Group | Unknown | + + + Author + + + | Author | [facility] (Historical as of | | | 12-02-18) | + + + | Organization | [facility] (Historical as of | | | 12-02-18) | + + + | Address | Unknown | + + + | Phone | Unavailable | + + + Support + + +---------+ + | Name | Relationship | Address | Phone | + + +---------+ + | Rosalind Kang | ECON | Unknown | | + + +---------+ + Care Team Providers + +------+ + | Care Anthropology Department Chair Name | Role | Phone | + [...] +------+-------+ + | PREMERA | PREMER | [id number] | | | [address] [address] | | | A BLUE | 4 | | | [place], [place] | | | CARD | | | | [address] | +---------+--------+ +------+-------+ + + +--------+ +--------+ [...] SW | | | al/Fam | | 1979 | [phone] | [place] | | | erika | | | [address] | [address] | + +--------+ +--------+ + +
--- OUTSIDE RECORDS SUMMARY | ~2019-08-24 | XMS | Clinical Summary ---
Demographics + + + | Address | [address] | | | [place] [address] | + + + | Preferred Language | Unknown | + + + | Marital Status | Legally | + + + | Buddhism Affiliation | Unknown | + + + | Race | Unknown | + + + | Ethnic Group | Unknown | + + + Author + + + | Author | [facility] (Historical as of | | | 12-02-18) | + + + | Organization | [facility] (Historical as of | | | [...] Team Providers + +------+ + | Care Vp Site Name | Role | Phone | + [...] +------+-------+ + | PREMERA | PREMER | [id number] | | | [address] [address] | | | A BLUE | 4 | | | [place], [place] | | | CARD | | | | [address] | +---------+--------+ +------+-------+ + + +--------+ +--------+ [...] | | al/Fam | | 1979 | [phone] | [place] | | | erika | | | [phone] | [address] | + +--------+ +--------+ + +
--- OUTSIDE RECORDS SUMMARY | ~2019-08-24 | XMS | Encounter Summary ---
Demographics + + + | Address | [address] | | | [place] [address] | + + + | Home Phone | | + + + | Preferred Language | Unknown | + + + | Marital Status | Single | + + + | Zoroastrianism Affiliation | Unknown | + + + | Race | White | + + + | Ethnic Group | or | + + + Author + + + | Author | [facility] | + + + | Organization | [facility] | + + + | Address | Unknown | + + + | Phone | Unavailable | + + + Support + + +---------+ + | Name | Relationship | Address | Phone | + + +---------+ + | Rosalind Kang | ECON | Unknown | | + + +---------+ + Care Team Providers + +------+ + | Care Collection Advisor Name | Role | Phone | + [...] | | | | | Neuro-Ophthalmology | [place], [place] | | | | | at [facility] [address] | [address] | | | | | Ave Mailcode: JOSEPH | [phone] | | | | | [facility] | | | | | | and Healing, | | | | | | Building | | | | | | Floor [facility] [place] | | | | | | [address] | | | | | | [phone] | | | +--------+ + + + [...]
--- OUTSIDE RECORDS SUMMARY | ~2019-08-24 | XMS | Clinical Summary ---
Demographics + + + | Address | [address] | | | [place] [address] | + + + | Home Phone | | + + + | Preferred Language | Unknown | + + + | Marital Status | Single | + + + | Uatsdin Affiliation | Unknown | + + + | Race | White | + + + | Ethnic Group | or | + + + Author + + + | Author | [facility] | + + + | Organization | [facility] | + + + | Address | Unknown | + + + | Phone | Unavailable | + + + Support + + +---------+ + | Name | Relationship | Address | Phone | + + +---------+ + | Rosalind Kang | ECON | Unknown | | + + +---------+ + Care Team Providers + +------+ + | Care Data Manager Name | Role | Phone | + +------+ + | Josephine Ruff | PCP | | + +------+ + Source Comments OCTAVIO is fully live on both [facility] Ambulatory and [facility] InPatient.[facility] Allergies No Known Allergies Medications + + [...] | | | + +--------+ +--------+-------+---------+--------+ | CIRCUIT BREAKER ASSEMBLER MEDICAID | CIRCUIT BREAKER ASSEMBLER | [id number] | | | | Medica [...] | 1980 | [phone] | [place] [address] | | | erika | | | 4 (Home) | | + +--------+ +--------+ + +
--- OUTSIDE RECORDS SUMMARY | ~2019-08-24 | XMS | Encounter Summary ---
Demographics + + + | Address | [address] | | | [place] [address] | + + + | Home Phone | | + + + | Preferred Language | Unknown | + + + | Marital Status | Single | + + + | Zoroastrian Affiliation | Unknown | + + + | Race | White | + + + | Ethnic Group | or | + + + Author + + + | Author | [facility] | + + + | Organization | [facility] | + + + | Address | Unknown | + + + | Phone | Unavailable | + + + Support + + +---------+ + | Name | Relationship | Address | Phone | + + +---------+ + | Rosalind Kang | ECON | Unknown | | + + +---------+ + Care Team Providers + +------+ + | Care Recreation Facility Manager Name | Role | Phone | [...] | | | | | [place] | [place], [place] | | | | | | [address] | [address] | | | | | | [address] | Phone: | | | | | | [place], | [phone] | | | | | | [place] [address] | Fax: | | | | | | Phone: | [phone] | | | | | | [phone] | | | | | | | Fax: | | | | | | | [phone] | | +--------+--------+ + + + + Encounter Details +--------+---------+ + + + | Date | Type | Department | Care Team | Description | +--------+---------+ + + + | 12/08/ | Office | [facility] | Idania De La Cruz, | Optic neuritis, left | | 2015 | Visit | [place] | [address] | (Primary Dx) | | | | Neuro-Ophthalmology | [place], [place] | | | | | at [facility] [address] | [address] | | | | | Ave Mailcode: JOSEPH | [phone] | | | | | [facility] | | | | | | and Healing, | | | | | | Building | | | | | | Floor [facility] [place] | | | | | | [address] | | | | | | [phone] | | | +--------+---------+ + + + [...] Susan was see n at [facility] on 12/04/2015 for vision loss, left eye. [...] Additional Tests Color Right Left [place] - [place] - [facility] 8.5/10 0/10 Slit Lamp and [...] next week with an update Attestations: The lamination technician, under the supervision of the physician, is responsible for performing the f ollowing sections: RFV, ROS, PMH, PSH, SocHx, FH, Med list, Base Ophth Exam. The attending physician is responsible for the entire content of the note, has reviewed the data gathered by the lamination technician, and has personally performed the HPI, [...] | + + + + + | [facility] - | [address] | [place] [address] | | | [facility] | | | | + + [...] by | | | | | | [employer],[address] | | | | | | Carlos Muller, [facility],[place] | | | | | | [address] | | | | | | [phone].[email or web address]. | | | | | | Torey [...] [facility] | [address] | [place], [place] | | | UN[facility] P[facility] - INTFC | | [address] | | + + + + + [...] by | | | | | | [employer],[address] | | | | | | Aneudynellie Muller, [facility],[place] | | | | | | [address] | | | | | | [phone].[email or web address]. | | | | | | Torey [...] [facility] | [address] | [place], [place] | | | UN[facility] INTFC | | [address] | | + + + + + [...] by | | | | | | [employer],[address] | | | | | | Carlos Muller, [facility],[place] | | | | | | [address] | | | | | | [phone].[facility]. | | | | | | yoni, [...] [facility] | [address] | [place], [place] | | | UN[facility] P[facility] INTFC | | [address] | | + + + + + [...] | | | | | | | [email or web address] | | | | | | 001Performed by [facility] | | | | | | Laboratories,[address] | | | | | | [place] [address] | | | | | | [phone].Wellkeeper[facility]. | | | | | | Torey [...] [facility] | [address] | [place], [place] | | | UN[facility] P[facility] - INTFC | | [address] | | + + + + + documented in this encounter Visit Diagnoses + + | Diagnosis | + + | Optic neuritis, left - Primary Optic neuritis, unspecified | + + documented in this encounter
[~2019-08-24 10:19] MED LIST changes: +DICLOFENAC SODI75 MG PO; +HYDROCHLOROTH12.5 M1 PO; +ULTRAM50 MG PO
--- NOTE | 2019-08-24 21:30 | EKG ---
[facility] [address] [facility] [place] [address] Signed Normal sinus rhythm Left axis deviation Nonspecific intraventricular conduction delay Abnormal ECG Confirmed by CHRIS CHISHOLM MD ([id number]) on 08/24/2019 9:29:52 PM Electronically Signed By: CHRIS CHISHOLM MD 08/24/19 2130 PATIENT NAME: JUAN CARLOS DESOUZA BECCA Electrocardiogram DATE OF : 80 PHYSICIAN: CHRIS CHISHOLM MD REPORT #: [id number] REPORT IS CONFIDENTIAL AND NOT TO BE RELEASED WITHOUT AUTHORIZATION
== END 2019-08-24 13:38 | disposition home or self-care (01) ==
LOC: ED 10:19
DX: K21.9 Gastro-esophageal reflux disease without esophagitis (principal); I10 Essential (primary) hypertension; E78.00 Pure hypercholesterolemia, unspecified; I25.2 Old myocardial infarction; Z79.899 Other long term (current) drug therapy
CPT/HCPCS: 71045; 80053; 83690; 83735; 84484; 85025; 93005; 93010; 96374; 96375; 99285-25; J2270; J2405

== ENCOUNTER 2019-11-22 09:05 | Emergency (ER) | payer OTHER ==
[~2019-11-22] VITALS: Ht 154.9 cm; Wt 117.9 kg
--- OUTSIDE RECORDS SUMMARY | ~2019-11-22 | XMS | Clinical Summary ---
Demographics + + + | Address | [address] | | | [place] [address] | + + + | Home Phone | | + + + | Preferred Language | Unknown | + + + | Marital Status | Single | + + + | Shinto Affiliation | Unknown | + + + | Race | White | + + + | Ethnic Group | or | + + + Author + + + | Author | [facility] | + + + | Organization | [facility] | + + + | Address | Unknown | + + + | Phone | Unavailable | + + + Support + + +---------+ + | Name | Relationship | Address | Phone | + + +---------+ + | Rosalind Kang | ECON | Unknown | | + + +---------+ + Care Team Providers + +------+ + | Care Test Tube Maker Name | Role | Phone | + +------+ + | Josephine Ruff | PCP | | + +------+ + Source Comments OCTAVIO is fully live on both [facility] Ambulatory and [facility] InPatient.[facility] Allergies No Known Allergies Medications + + + +---------+------+------+-------+ | Medication | Sig | Dispensed | Refills | Star | End | Statu | | | | | | t | Date | s | | | | | | Date | | | + + + +---------+------+------+-------+ | predniSONE 20 mg | Take 4 tablets (80 | 100 | 1 | 08/2 | | Activ | | oral tablet | mg) once a day for 3 | tablet | | 3/20 | | e | | | days followed by 3 | | | 16 | | | | | tablets (60 mg) | | | | | | + + + +---------+------+------+-------+ Active Problems Not on file Family History + + +------+ + | Medical History | Relation | Name | Comments | + + +------+ + | Headache | Sister | | migraine | + + +------+ + + +------+--------+ + | Relation | Name | Status | Comments | + +------+--------+ + | Sister | | | | + +------+--------+ + Social History + +-------+ +--------+------+ | Tobacco Use | Types | Packs/Day | Years | Date | | | | | Used | | + +-------+ +--------+------+ | Never Smoker | | | | | + +-------+ +--------+------+ + + + | Sex Assigned at | Date Recorded | | | | + + + | Not on file | | + + + + + + + | Job Start Date | Occupation | Industry | + + + + | Not on file | Not on file | Not on file | + + + + + + + + | Travel History | Travel Start | Travel End | + + + + + + | No recent travel history available. | + + Last Filed Vital Signs + + + + + | Vital Sign | Reading | Time Taken | Comments | + + + + + | Blood Pressure | - | - | | + + + + + | Pulse | - | - | | + + + + + | Temperature | - | - | | + + + + + | Respiratory Rate | - | - | | + + + + + | Oxygen Saturation | - | - | | + + + + + | Inhaled Oxygen | - | - | | | Concentration | | | | + + + + + | Weight | 102.5 kg (226 lb) | 12/09/2015 9:55 AM | | | | | PDT | | + + + + + | Height | 154.9 cm (5' 1") | 12/09/2015 9:55 AM | | | | | PDT | | + + + + + | Body Mass Index | 42.7 | 12/09/2015 9:55 AM | | | | | PDT | | + + + + + Plan of Treatment + + + + + | Health Maintenance | Due Date | Last Done | Comments | + + + + + | Influenza (Flu) | | | | | vaccination (#1) | 9 | | | + + + + + | Pneumococcal | Aged Out | | No longer eligible | | vaccination | | | based on patient's | | | | | age to complete this | | | | | topic | + + + + + Results Not on filefrom Last 3 Months Insurance + +--------+ +--------+-------+---------+--------+ | Payer | Benefi | Subscriber | Effect | Phone | Address | Type | | | t Plan | ID | claudio | | | | | | / | | Dates | | | | | | Group | | | | | | + +--------+ +--------+-------+---------+--------+ | FURNACE SETTER MEDICAID | FURNACE SETTER | [id number] | | | | Medica | | | [place] | | 015-Pr | | | id | | | [place] | | esent | | | | + +--------+ +--------+-------+---------+--------+ + +--------+ +--------+ + + | Guarantor Name | Accoun | Relation to | Date | Phone | Billing Address | | | t Type | Patient | of | | | | | | | | | | + +--------+ +--------+ + + | Francois | Person | Self | [birth year] | [address] | | Susan Cisneros | glenn/Hernan | | 1980 | [phone] | [place] [address] | | | erika | | | 4 (Home) | | + +--------+ +--------+ + +
--- OUTSIDE RECORDS SUMMARY | ~2019-11-22 | XMS | Clinical Summary ---
Demographics + + + | Address | [address] | | | [place] [address] | + + + | Home Phone | | + + + | Preferred Language | Unknown | + + + | Marital Status | Single | + + + | Hoahaoism Affiliation | Unknown | + + + | Race | Unknown | + + + | Ethnic Group | Unknown | + + + Author + + + | Author | [facility] | | | and [place] | + + + | Organization | [facility] | | | and [place] | + + + | Address | Unknown | + + + | Phone | Unavailable | + + + Support + + +---------+ + | Name | Relationship | Address | Phone | + + +---------+ + | Rosalind Kang | ECON | Unknown | | + + +---------+ + Care Team Providers + +------+ + | Care Recycling Program Manager Name | Role | Phone | + +------+ + | Josephine Ruff | PCP | Unavailable | + +------+ + Allergies Not on File Medications Not on file Active Problems Not on file Social History + +-------+ +--------+------+ | Tobacco [...] on file | | + + + Last Filed Vital Signs Not on file Plan of Treatment + + + + + | Health Maintenance | Due Date | Last | Comments | | | | Done | | + + + + + | Cervical Cancer | | | | | Screening (Pap) | 0 | | | + + + + + | Vaccine: Influenza | | | | | (#1) | 0 | | | + + + + + | Vaccine: | | 08/05/19 | | | Dtap/Tdap/Td (3 - | 6 | 16, | | | Td) | | 10/19/19 | | | | | 14 | | + + + + + Results Not on filefrom Last 3 Months Insurance + +--------+ +--------+ +---------+--------+ | Payer | Benefi | Subscriber | Effect | Phone | Address | Type | | | t Plan | ID | claudio | | | | | | / | | Dates | | | | | | Group | | | | | | + +--------+ +--------+ +---------+--------+ | [employer] | MODA | [id number] | | [phone] | | Medica | | MEDICAID HMO | HEALTH | | 020-Pr | 1 | | id | | | MDCD | | esent | | | | | | [place]MO [place] | | | | | | + +--------+ +--------+ +---------+--------+ + +--------+ +--------+ + + | Guarantor Name | Accoun | Relation to | Date | Phone | Billing Address | | | t Type | Patient | of | | | | | | | | | | + +--------+ +--------+ + + | Susan Parrish | Person | Self | [birth year] | [address] | | [place] | al/Fam | | 1980 | [phone] | [place] [address] | | | erika | | | 6 (Home) | | + +--------+ +--------+ + +"
--- OUTSIDE RECORDS SUMMARY | ~2019-11-22 | XMS | Encounter Summary ---
Demographics + + + | Address | [address] | | | [place] [address] | + + + | Home Phone | | + + + | Preferred Language | Unknown | + + + | Marital Status | Single | + + + | Taoist Affiliation | Unknown | + + + | Race | White | + + + | Ethnic Group | or | + + + Author + + + | Author | [facility] | + + + | Organization | [facility] | + + + | Address | Unknown | + + + | Phone | Unavailable | + + + Support + + +---------+ + | Name | Relationship | Address | Phone | + + +---------+ + | Rosalind Kang | ECON | Unknown | | + + +---------+ + Care Team Providers + +------+ + | Care Pizzamaker Name | Role | Phone | + +------+ + | Josephine Ruff | PCP | | + +------+ + Reason for Visit + + + | Reason | Comments | + + + | Update On Condition | | + + + Encounter Details +--------+ + + + + | Date | Type | Department | Care Team | Description | +--------+ + + + + | 12/29/ | Documentati | [facility] | Idania De La Cruz, | Update On Condition | | 2016 | on | [place] | [address] | | | | | Neuro-Ophthalmology | [place], [place] | | | | | at [facility] [address] | [address] | | | | | Ave [facility] | [phone] | | | | | Heatlh and Healing, | | | | | | Building | | | | | | Floor [place], [place] | | | | | | [address] | | | | | | [phone] | | | +--------+ + + + + Social History + +-------+ +--------+------+ | [...] recent travel history available. | + + documented as of this encounter Plan of Treatment Not on filedocumented as of this encounter Visit Diagnoses Not on filedocumented in this encounter"
--- OUTSIDE RECORDS SUMMARY | ~2019-11-22 | XMS | Encounter Summary ---
Demographics + + + | Address | [address] | | | [place] [address] | + + + | Home Phone | | + + + | Preferred Language | Unknown | + + + | Marital Status | Single | + + + | Orthodox Affiliation | Unknown | + + + | Race | White | + + + | Ethnic Group | or | + + + Author + + + | Author | [facility] | + + + | Organization | [facility] | + + + | Address | Unknown | + + + | Phone | Unavailable | + + + Support + + +---------+ + | Name | Relationship | Address | Phone | + + +---------+ + | Rosalind Kang | ECON | Unknown | | + + +---------+ + Care Team Providers + +------+ + | Care Right Of Way Worker Name | Role | Phone | + [...] | +--------+ + + + + | 03/05/ | Documentati | [facility] | Idania De La Cruz, | Update On Condition | | 2016 | on | [place] | [address] | | | | | Neuro-Ophthalmology | [place], [place] | | | | | at [facility] [address] | [address] | | | | | Ave [facility] | [phone] | | | | | Heatlh and Healing, | | | | | | Building | | | | | | Floor [place], [place] | | | | | | [address] | | | | | | [phone] | | | +--------+ + + + [...]
--- OUTSIDE RECORDS SUMMARY | ~2019-11-22 | XMS | Clinical Summary ---
Demographics + + + | Address | [address] | | | [place] [address] | + + + | Home Phone | | + + + | Preferred Language | Unknown | + + + | Marital Status | Single | + + + | Buddhism Affiliation | Unknown | + + + | Race | White | + + + | Ethnic Group | or | + + + Author + + + | Author | [facility] | + + + | Organization | [facility] | + + + | Address | Unknown | + + + | Phone | Unavailable | + + + Support + + +---------+ + | Name | Relationship | Address | Phone | + + +---------+ + | Rosalind Kang | ECON | Unknown | | + + +---------+ + Care Team Providers + +------+ + | Care Account Executive Healthcare Name | Role | Phone | + +------+ + | Josephine Ruff | PCP | | + +------+ + Source Comments OCTAVIO is fully live on both [facility] and [facility] InPatient.[facility] Allergies No Known Allergies Medications + + [...] | | | + +--------+ +--------+-------+---------+--------+ | TRAPEZE ARTIST MEDICAID | TRAPEZE ARTIST | xxxxxxxx | | | | Medica [...] | 1980 | [phone] | [place] [address] | | | erika | | | 4 (Home) | | + +--------+ +--------+ + +
--- OUTSIDE RECORDS SUMMARY | ~2019-11-22 | XMS | Encounter Summary ---
Demographics + + + | Address | [address] | | | [place] [address] | + + + | Home Phone | | + + + | Preferred Language | Unknown | + + + | Marital Status | Single | + + + | Christian Affiliation | Unknown | + + + | Race | White | + + + | Ethnic Group | or | + + + Author + + + | Author | [facility] | + + + | Organization | [facility] | + + + | Address | Unknown | + + + | Phone | Unavailable | + + + Support + + +---------+ + | Name | Relationship | Address | Phone | + + +---------+ + | Rosalind Kang | ECON | Unknown | | + + +---------+ + Care Team Providers + +------+ + | Care Barrel Raiser Helper Name | Role | Phone | + +------+ + | Josephine Ruff | PCP | | + +------+ + Reason for Visit + + + | Reason | Comments | + + + | Optic neuritis | | + + + | New patient | | | consultation | | + + + Office Visit - E/M Services (Routine) +--------+--------+ + + + + | Status | Reason | Specialty | Diagnoses / | Referred By | Referred To | | | | | Procedures | Contact | Contact | +--------+--------+ + + + + | Closed | | Ophthalmology | Diagnoses | Marisa, | Dorothy, | | | | | Unspecified | Héctor Rico, | MD Idania | | | | | papilledema | [facility] | [address] | | | | | | SOURCE | Ave | | | | | | [place] | [place], [place] | | | | | | [address] | [address] | | | | | | [address] | Phone: | | | | | | [place], | [phone] | | | | | | [place] [address] | Fax: | | | | | | Phone: | [phone] | | | | | | [phone] | | | | | | | Fax: | | | | | | | [phone] | | +--------+--------+ + + + + Encounter Details +--------+---------+ + + + | Date | Type | Department | Care Team | Description | +--------+---------+ + + + | 12/08/ | Office | [facility] | Idania De La Cruz, | Optic neuritis, left | | 2015 | Visit | [place] | [address] | (Primary Dx) | | | | Neuro-Ophthalmology | [place], [place] | | | | | at [facility] [address] | [address] | | | | | [facility] for | [phone] | | | | | [place] and [place], | | | | | | Building | | | | | | Floor [facility] [place] | | | | | | [address] | | | | | | [phone] | | | +--------+---------+ + + + Social History + +-------+ [...] + + documented as of this encounter Last Filed Vital Signs + + + [...] + + + documented in this encounter Progress Notes Idania De La Cruz MD - 12/09/2015 10:21 AM PDTFormatting of this note might be different fr om the original. Neuro-Ophthalmology New Patient Evaluation Referred by: Héctor Cunningham, OD Source of History: patient Chief Complaint: Severe vision loss, left eye New patient referred urgently for optic neuritis. New onset of left-sided frontal headache and eye pain 3 weeks ago. 3 days later, then visio n became blurred in left eye. Ovder the following week, the eye became blind. Susan was see n at [facility] on 12/04/2015 for vision loss, left eye. She was found to be NL P in left eye. Urgent MRI was ordered and found left optic nerve enhancement. Patient had 4 days of IV steroids starting on 12/05/2015. She has noted some improvement in pain following IV steroids. She is able to day to see some light out of her left eye. Eye pain worse when she looks to the left. Dr. De La Cruz spoke with patient's PCP on Tuesday and it was recommended to obtain Aquaporin 4 IGG, which is still pending but will be sent once received by BRIAN Lindsey. Patient hand carried disc of MRI. She did pass out prior to her 3rd infusion. with 2 month old. Delivery date 09/17 but she reports her due date was 10/23/2015. Denies recent viral illness or vaccine. Denies past or current neurological symptoms. Current Outpatient Prescriptions Medication Sig predniSONE 20 mg oral tablet Take 4 tablets (80 mg) once a day for 3 days followed by 3 tablets (60 mg) No current facility-administered medications for this visit. Allergies: Review of patient's allergies indicates no known allergies. Past Medical History Diagnosis Date Optic neuritis History reviewed. No pertinent past surgical history. Social History: Patient Drives: yes Alcohol Use: Never. History Smoking status Never Smoker Smokeless tobacco Not on file Base Exam Visual Acuity (Snellen - Linear) Right Left Dist sc 20/25 -3 LP Tonometry (Tonopen, 10:14 AM) Right Left Pressure 17 12 Dilation Both eyes: 1.0% Mydriacyl @ 10:14 AM Pupils Dark Light React APD Right 5 3 None Left 5 4 Sluggish yes Visual Fowler Left Right Result Full Restrictions Total superior temporal, inferior temporal, superior nasal, inferior nasal def iciencies Extraocular Movement Right Left Result Full, Ortho Full, Ortho Neuro/Psych Oriented x3: Yes Mood/Affect: Normal Additional Tests Color Right Left Carrasquillo - [place] - Rittler 8.5/10 0/10 Slit Lamp and Fundus Exam External Exam Right Left External Normal Normal Slit Lamp Exam Right Left Lids/Lashes Normal Normal Conjunctiva/Sclera White and quiet White and quiet Cornea All layers clear All layers clear Anterior Chamber Deep and quiet Deep and quiet Iris Normal Normal Lens Clear Clear Vitreous Normal Normal Fundus Exam Right Left Disc Normal mild diffuse edema with few disc hemes C/D Ratio 0.4 Macula Normal 1 heme, no exudates Vessels Normal Normal Periphery Normal Normal Imaging Tests: 12/06/2015 MRI Brain and orbits w/ and w/o Contrast reviewed: significant T2 hyperintensity as well as enhancement and enlargement (especially in pre-chiasmatic portion) of left optic nerve, involving the entire course of optic nerve. Brain study reassuring. Cystic lesion in area of right nostril. 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 Two months post- 3. Mild anemia on recent CBC - PCP aware and planning on following up with the patient Plan: 1. Prednisone 80 mg x 3 days followed by 60 mg daily (potential side effects reviewed with the patient) 2. Aquaporin 4 IgG pending; complete labs with MADISYN, RPR< Quantiferon TB gold, CHAYO, ANCA. 3. Will contact patient next week with an update Attestations: The emergency vehicle technician, under the supervision of the physician, is responsible for performing the f ollowing sections: RFV, ROS, PMH, PSH, SocHx, FH, Med list, Base Ophth Exam. The attending physician is responsible for the entire content of the note, has reviewed the data gathered by the emergency vehicle technician, and has personally performed the HPI, the physical examina tion, and the medical decision making. Idania De La Cruz MD Lisette Borden - 12/09/2015 10:15 AM CHING, Sally Hwang, performed, reviewed and revised the above history, medications, allergies, as well as performed elements noted in the Base Ophth almology Exam. docu mented in this encounter Plan of Treatment Not on filedocumented as of this encounter Procedures + +--------+ + + + | Procedure Name | Priori | Date/Time | Associated Diagnosis | Comments | | | ty | | | | + +--------+ + + + | LAB REPORTS | | 12/11/2015 | | Results for this | | | | 12:00 AM | | procedure are in the | | | | PDT | | results section. | + +--------+ + + + documented in this encounter Results LAB REPORTS (12/11/2015 12:00 AM PDT) + + + | Narrative | Performed At | + + + | | | + + + QUANTIFERON TB GOLD, BLOOD (12/09/2015 10:55 AM [...] | + + + + + | [facility] - | [address] | [place] [address] | | | [place] | | | | + + + [...] by | | | | | | [employer],[address] | | | | | | Carlos Joy, [facility] [place] | | | | | | [address] | | | | | | [phone].[employer]. | | | | | | Torey [...] | + + + + + | [facility] | [address] | [place], [place] | | | UNIV PTH - INTFC | | [address] | | + + + + + ANTI NEUTROPHIL CYTOPLASMIC AB SCN, SERUM (12/09/2015 10:55 AM PDT) + + + + + + | Component | Value | Ref Range | Performed | Pathologist | | | | | At | Signature | + + + + + + | ANCA | <1:20Comment: The ANCA | <1:20 | [facility] | | | -NEUTROPHIL | IFA is <1:20; therefore, | | REG UNIV | | | | no further testing will | | PTH - INTFC | | | CYTOPLASMIC | be performed. ANCA IFA | | | | | IGG, SERUM | is < 1:20. No further | | | | | | reflex testing will be | | | | [...] by | | | | | | [employer],[address] | | | | | | Carlos Joy, [facility] [place] | | | | | | [address] | | | | | | [phone].[facility] [facility]. | | | | | | Torey [...] | + + + + + | [facility] | [address] | [place], [place] | | | UN[facility] PTH - INTFC | | [address] | | + + + + + [...] by | | | | | | [employer],[address] | | | | | | Carlos Joy, [facility] [place] | | | | | | [address] | | | | | | [phone].[facility]. | | | | | | yoni, Torey Gupta, | | | | | | MD Lab. Director | | | | + + + + + + + + | Specimen | + + | Blood - Blood | + + + + + + + | Performing | Address | City/State/Zipcode | Phone Number | | Organization | | | | + + + + + | [facility] | [address] | [place], [place] | | | UN[facility] PTH - INT[place] | | [address] | | + + + + + [...] | | | | | | | [email or web address] | | | | | | 001Performed by [facility] | | | | | | [facility],[address] | | | | | | [place] [address] | | | | | | [phone].[employer] [facility]. | | | | | | yoni, Torey Gupta, | | | | | | Lab. TATA Director | | | | + + + + + + + + | Specimen | + + | Blood - Blood | + + + + + + + | Performing | Address | City/State/Zipcode | Phone Number | | Organization | | | | + + + + + | [facility] | [address] | [place], [place] | | | UN[facility] PTH - INT[place] | | [address] | | + + + + + documented in this encounter Visit Diagnoses + + | Diagnosis | + + | Optic neuritis, left - Primary Optic neuritis, unspecified | + + documented in this encounter
--- OUTSIDE RECORDS SUMMARY | ~2019-11-22 | XMS | Encounter Summary ---
Demographics + + + | Address | [address] | | | [place] [address] | + + + | Home Phone | | + + + | Preferred Language | Unknown | + + + | Marital Status | Single | + + + | Pentecostal Affiliation | Unknown | + + + | Race | White | + + + | Ethnic Group | or | + + + Author + + + | Author | [facility] | + + + | Organization | [facility] | + + + | Address | Unknown | + + + | Phone | Unavailable | + + + Support + + +---------+ + | Name | Relationship | Address | Phone | + + +---------+ + | Rosalind Kang | ECON | Unknown | | + + +---------+ + Care Team Providers + +------+ + | Care Route Relief Driver Name | Role | Phone | + [...] | | | | | [place] | [place], [place] | | | | | | [address] | [address] | | | | | | [address] | Phone: | | | | | | [place], | [phone] | | | | | | [place] [address] | Fax: | | | | | | Phone: | [phone] | | | | | | [phone] | | | | | | | Fax: | | | | | | | [phone] | | +--------+--------+ + + + + Encounter Details +--------+---------+ + + + | Date | Type | Department | Care Team | Description | +--------+---------+ + + + | 12/08/ | Office | [facility] | Idania De La Cruz, | Optic neuritis, left | | 2015 | Visit | [place] | [address] | (Primary Dx) | | | | Neuro-Ophthalmology | [place], [place] | | | | | at [facility] [address] | [address] | | | | | [facility] for | [phone] | | | | | [address] and [address], | | | | | | Building | | | | | | Floor [facility] [place] | | | | | | [address] | | | | | | [phone] | | | +--------+---------+ + + + [...] Susan was see n at [facility] on 12/04/2015 for vision loss, left eye. [...] Additional Tests Color Right Left Carrasquillo - [place] - Rittler 8.5/10 0/10 Slit Lamp and [...] next week with an update Attestations: The fuel conversion technician, under the supervision of the physician, is responsible for performing the f ollowing sections: RFV, ROS, PMH, PSH, SocHx, FH, Med list, Base Ophth Exam. The attending physician is responsible for the entire content of the note, has reviewed the data gathered by the fuel conversion technician, and has personally performed the HPI, [...] | + + + + + | [facility] - | [address] | [place] [address] | | | [place] | | | | + + + [...] by | | | | | | [employer] | | | | | | Carlos Joy, [facility] [place] | | | | | | [address] | | | | | | [phone].[facility] [employer]. | | | | | | Torey [...] [facility] | [address] | [place], [place] | | | UN[facility] PTH - INTFC | | [address] | | + + + + + [...] by | | | | | | [employer] | | | | | | Carlos Joy, [facility] [place] | | | | | | [address] | | | | | | [phone].[employer]. | | | | | | Torey [...] [facility] | [address] | [place], [place] | | | UN[facility] [place] - INTFC | | [address] | | + + + + + [...] by | | | | | | [employer] | | | | | | Carlos Joy, [facility] [place] | | | | | | [address] | | | | | | [phone].[employer] [facility]. | | | | | | yoni, [...] [facility] | [address] | [place], [place] | | | UN[facility] [place] - INTFC | | [address] | | + + + + + [...] | | | | | | | [email or web address] | | | | | | 001Performed by [facility] | | | | | | [facility],[address] | | | | | | [place] [address] | | | | | | [phone].[employer]. | | | | | | yoni, [...] [facility] | [address] | [place], [place] | | | UN[facility] PTH - INTFC | | [address] | | + + + + + documented in this encounter Visit Diagnoses + + | Diagnosis | + + | Optic neuritis, left - Primary Optic neuritis, unspecified | + + documented in this encounter
--- OUTSIDE RECORDS SUMMARY | ~2019-11-22 | XMS | Encounter Summary ---
Demographics + + + | Address | [address] | | | [place] [address] | + + + | Home Phone | | + + + | Preferred Language | Unknown | + + + | Marital Status | Single | + + + | Taoism Affiliation | Unknown | + + + | Race | White | + + + | Ethnic Group | or | + + + Author + + + | Author | [facility] | + + + | Organization | [facility] | + + + | Address | Unknown | + + + | Phone | Unavailable | + + + Support + + +---------+ + | Name | Relationship | Address | Phone | + + +---------+ + | Rosalind Kang | ECON | Unknown | | + + +---------+ + Care Team Providers + +------+ + | Care Manager Of Procurement Name | Role | Phone | + [...] | | | | | Neuro-Ophthalmology | [place], [place] | | | | | at [facility] [address] | [address] | | | | | Ave [facility] | [phone] | | | | | [facility] and Healing, | | | | | | Building | | | | | | Floor [place], [place] | | | | | | [address] | | | | | | [phone] | | | +--------+ + + + [...]
--- OUTSIDE RECORDS SUMMARY | ~2019-11-22 | XMS | Encounter Summary ---
Demographics + + + | Address | [address] | | | [place] [address] | + + + | Home Phone | | + + + | Preferred Language | Unknown | + + + | Marital Status | Single | + + + | Anabaptist Affiliation | Unknown | + + + | Race | White | + + + | Ethnic Group | or | + + + Author + + + | Author | [facility] | + + + | Organization | [facility] | + + + | Address | Unknown | + + + | Phone | Unavailable | + + + Support + + +---------+ + | Name | Relationship | Address | Phone | + + +---------+ + | Rosalind Kang | ECON | Unknown | | + + +---------+ + Care Team Providers + +------+ + | Care Hog Tender Name | Role | Phone | + +------+ + | Josephine Ruff | PCP | | + +------+ + Encounter Details +--------+------+ + + + | Date | Type | Department | Care Team | Description | +--------+------+ + + + | 12/08/ | Lab | Laboratory at [facility] | | Optic neuritis, left | | 2015 | | [address] | | | | | | [place] for [facility] | | | | | | and Healing, | | | | | | [address] | | | | | | [place], [place] | | | | | | [address] | | | | | | [phone] | | | +--------+------+ + + + [...] | + + + + + | [facility] - | [address] | [place] [address] | | | [facility] | | | | + + + [...] by | | | | | | [employer],[address] | | | | | | Carlos Muller, [facility] [place] | | | | | | [address] | | | | | | [phone].[employer]sFunderlab. | | | | | | Torey [...] + + | [facility] | [address] | [place], [place] | | | UN[facility] [place] - INTFC | | [address] | | + + + + + [...] by | | | | | | [employer],[address] | | | | | | Carlos Muller, [facility] [place] | | | | | | [address] | | | | | | [phone].AppsFunderlab. | | | | | | Torey [...] | + + + + + | [facility] | [address] | [place], [place] | | | UN[facility] P[facility] - INTFC | | [address] | | + + + + + [...] by | | | | | | [employer],[address] | | | | | | Carlos Muller, [facility] [place] | | | | | | [address] | | | | | | [phone].[employer]. | | | | | | yoni, [...] [facility] | [address] | [place], [place] | | | UN[facility] [place] - INTFC | | [address] | | + + + + + [...] | | | | | | | [email or web address] | | | | | | 001Performed by [facility] | | | | | | [facility],[address] | | | | | | [place] [address] | | | | | | [phone].[employer]sFunderlab. | | | | | | yoni, [...] [facility] | [address] | [place], [place] | | | UN[facility] [place] INT[place] | | [address] | | + + + + + documented in this encounter Visit Diagnoses + + | Diagnosis | + + | Optic neuritis, left Optic neuritis, unspecified | + + documented in this encounter"
--- OUTSIDE RECORDS SUMMARY | ~2019-11-22 | XMS | Encounter Summary ---
Demographics + + + | Address | [address] | | | [place] [address] | + + + | Home Phone | | + + + | Preferred Language | Unknown | + + + | Marital Status | Single | + + + | Latter-Day Affiliation | Unknown | + + + | Race | White | + + + | Ethnic Group | or | + + + Author + + + | Author | [facility] | + + + | Organization | [facility] | + + + | Address | Unknown | + + + | Phone | Unavailable | + + + Support + + +---------+ + | Name | Relationship | Address | Phone | + + +---------+ + | Rosalind Kang | ECON | Unknown | | + + +---------+ + Care Team Providers + +------+ + | Care Director Education Name | Role | Phone | + [...] Care Coordination | | 2016 | | [place] | [address] | | | | | Neuro-Ophthalmology | [place], [place] | | | | | at [facility] [address] | [address] | | | | | [facility] | [phone] | | | | | [place], | | | | | | Building | | | | | | Floor [place], [place] | | | | | | [address] | | | | | | [phone] | | | +--------+ + + + [...]
--- OUTSIDE RECORDS SUMMARY | ~2019-11-22 | XMS | Encounter Summary ---
Demographics + + + | Address | [address] | | | [place] [address] | + + + | Home Phone | | + + + | Preferred Language | Unknown | + + + | Marital Status | Single | + + + | Judaism Affiliation | Unknown | + + + [...] Team Providers + +------+ + | Care Record Cutter Name | Role | Phone | + [...] Questions | | 2016 | on | Arnie | [address] | | | | | Neuro-Ophthalmology | [place], [place] | | | | | at [facility] [address] | [address] | | | | | Ave [facility] | [phone] | | | | | Heatl[facility] and Cedric, | | | | | | Building | | | | | | Floor [place], [place] | | | | | | [address] | | | | | | [phone] | | | +--------+ + + + [...]
--- OUTSIDE RECORDS SUMMARY | ~2019-11-22 | XMS | Encounter Summary ---
Demographics + + + | Address | [address] | | | [place] [address] | + + + | Home Phone | | + + + | Preferred Language | Unknown | + + + | Marital Status | Single | + + + | Quaker Affiliation | Unknown | + + + | Race | White | + + + | Ethnic Group | or | + + + Author + + + | Author | [facility] | + + + | Organization | [facility] | + + + | Address | Unknown | + + + | Phone | Unavailable | + + + Support + + +---------+ + | Name | Relationship | Address | Phone | + + +---------+ + | Rosalind Kang | ECON | Unknown | | + + +---------+ + Care Team Providers + +------+ + | Care Coining Press Operator Name | Role | Phone | + +------+ + | Josephine Ruff | PCP | | + +------+ + Encounter Details +--------+------+ + + + | Date | Type | Department | Care Team | Description | +--------+------+ + + + | 12/08/ | Lab | Laboratory at [facility] | | Optic neuritis, left | | 2015 | | [address] | | | | | | [place] for [facility] | | | | | | and Healing, | | | | | | [address] | | | | | | [place], [place] | | | | | | [address] | | | | | | [phone] | | | +--------+------+ + + + [...] + | [facility] - | [address] | [place] [address] | | | [facility] | | | | + [...] by | | | | | | [employer],[address] | | | | | | Carlos Muller, [facility] [place] | | | | | | [address] | | | | | | [phone].[employer]lab. | | | | | | Torey [...] [facility] | [address] | [place], [place] | | | UN[facility] [place] - INT[place] | | [address] | | + + + + + [...] by | | | | | | [employer],[address] | | | | | | Carlos Muller, [facility] [place] | | | | | | [address] | | | | | | [phone].[employer]al[employer]lab. | | | | | | Torye vallejo, | | | | | | [...] [facility] | [address] | [place], [place] | | | UN[facility] [place] - [place] | | [address] | | + + + + + [...] by | | | | | | [employer],[address] | | | | | | Carlos Muller, [facility] [place] | | | | | | [address] | | | | | | [phone].[employer]ix. | | | | | | yoni, [...] [facility] | [address] | [place], [place] | | | UN[facility] [place] - [place] | | [address] | | + + + + + [...] | | | | | | | [email or web address] | | | | | | 001Performed by [facility] | | | | | | [facility],[address] [facility] | | | | | | [place] [address] | | | | | | [phone].Chainalyticslab. | | | | | | yoni, [...] [facility] | [address] | [place], [place] | | | [facility] [place] [place] | | [address] | | + + + + + documented in this encounter Visit Diagnoses + + | Diagnosis | + + | Optic neuritis, left Optic neuritis, unspecified | + + documented in this encounter"
--- OUTSIDE RECORDS SUMMARY | ~2019-11-22 | XMS | Encounter Summary ---
Demographics + + + | Address | [address] | | | [place] [address] | + + + | Home Phone | | + + + | Preferred Language | Unknown | + + + | Marital Status | Single | + + + | Islam Affiliation | Unknown | + + + | Race | Unknown | + + + | Ethnic Group | Unknown | + + + Author + + + | Author | [facility] | | | and Lamineana | + + + | Organization | [facility] | | | and Lamineana [...] Team Providers + +------+ + | Care Die Attaching Machine Tender Name | Role | Phone | + +------+ + PCP | Unavailable | + +------+ + Encounter Details +--------+ + + + + | Date | Type | Department | Care Team | Description | +--------+ + + + + | 09/15/ | Hospital | [facility] | Tristen Jensen | NSTEMI (non-ST | | 2012 - | Encounter | [facility] | MD Julio 1111 | elevated myocardial | | | | CARE FLOOR 4 8 | [facility] | infarction) (HCC); | | 09/17/ | | [address]IN [address] | [place] [address] | Chest pain | | 2012 | | [place], [place] | [phone] | | | | | [address] | | | | | | [phone] | | | +--------+ + + + [...] on file | | + + + documented as of this encounter Discharge Summaries Yasmine Cyr MD - 09/17/2012 11:16 AM PDT Discharge Summaries by Yasmine Cyr MD at 09/17/12 1116 Author: Yasmine Cyr MD Service: Hospitalist Author Type: Physician Filed: 09/19/12 1639 Date of Service: 09/17/12 1116 Status: Signed Supervisor Rose Grading: Yasmine Cyr MD (Physician) Related Notes: Original Note by Yasmine Cyr MD (Physician) filed at 09/17/12 1121 Patient ID: Juan Carlos Desouza [id number] 32 y.o. 1980 Admit date: 09/15/2012 Discharge date and time: 09/17/2012 Admitting Physician: Tristen Jensen MD Discharge Physician: MD Bing Consults: Primary Discharge Diagnoses: Chest pain [786.50] likely atypical Elevated troponin unclear etiology Discharged Condition: stable Significant Diagnostic Studies: Lab Results Component Value Date WBC 6.9 09/17/2012 HGB 10.8* 09/17/2012 HCT 33.1* 09/17/2012 MCV 84.5 09/17/2012 PLT 308 09/17/2012 GLUCOSE Date Value Range Status 09/17/2012 101* 65 - 99 mg/dL Final Testing performed at [facility] [place] [address] BUN Date Value Range Status 09/17/2012 6* 8 - 25 mg/dL Final Testing performed at [facility] [place] [address];[place] [address] CREATININE Date Value Range Status 09/17/2012 0.81 0.50 - 1.00 mg/dL Final Testing performed at [facility] [place] [address] BUN/CREAT Date Value Range Status 09/17/2012 8 Final Testing performed at [facility];[address] [place] [address];[place] [address] TOTAL PROTEIN Date Value Range Status 09/17/2012 7.6 6.3 - 8.2 g/dL Final Testing performed at [facility];[address] [place] [address];[place] [address] GLOBULIN Date Value Range Status 09/17/2012 4.5 1.3 - 4.9 g/dL Final Testing performed at [facility];[address] [place] [address];[place] [address] TBIL Date Value Range Status 09/17/2012 0.2 0.1 - 1.5 mg/dL Final Testing performed at [facility] [place] [address] ALT Date Value Range Status 09/17/2012 26 10 - 65 U/L Final Testing performed at [facility] [place] [address] AST Date Value Range Status 09/17/2012 32 10 - 45 U/L Final Testing performed at [facility] [place] [address] SODIUM Date Value Range Status 09/17/2012 143 135 - 143 mmol/L Final Testing performed at [facility] [place] [address] POTASSIUM Date Value Range Status 09/17/2012 4.0 3.5 - 4.9 mmol/L Final Testing performed at [facility] [place] [address] CHLORIDE Date Value Range Status 09/17/2012 109 99 - 109 mmol/L Final Testing performed at [facility] [place] [address] CO2 Date Value Range Status 09/17/2012 25 23 - 32 mmol/L Final Testing performed at [facility] [place] [address] ANION GAP AGAP Date Value Range Status 09/17/2012 13 5 - 20 mmol/L Final Testing performed at [facility] [place] [address] Chest Pulmonary Embolism With Contrast 09/16/[address] CHEST PULMONARY EMBOLISM W CONTRAST HISTORY: 32 years. Female. Chest pain. TECHNIQUE: CT angiography of the thorax was performed following a the uneventfu l intravenous administration of 80 cc of Isovue 370. This is a true CT angiography of the orax with 2-D coronal MIP images obtained. COMPARISON: None. FINDINGS: The heart is l in size without pericardial effusion. No enlarged mediastinal or hilar lymph nodes . Linea r areas of decrease density within the aortic arch and pulmonary artery, felt to represent m otion artifact. Symmetric enhancement of the pulmonary arteries bilaterally without intralum inal filling defects to suggest pulmonary embolism. Minimal patchy airspace disease within t he posterior right upper lobe. This is likely infectious or inflammatory in nature. IMPRES LILLY: 1. Negative for pulmonary embolism. 2. Minimal patchy airspace disease within the po sterior right upper lobe that may be infectious or inflammatory in nature. Electronically s igned by Milan Roa DO on 09/16/2012 1:42 PM Ultrasound Lower Extremity Venous Doppler Bilateral 09/16/2012 JUAN CARLOS DESOUZA US LOWER EXTREMITY VENOUS DOPPLER BILAT HISTORY: 32 years. Female. Chest pain and elevated d-dimer. TECHNIQUE: Duplex and color flow Doppler evaluation of th e bilateral lower extremity deep venous system. This is true Doppler evaluation with color f low, lara scale, and Doppler spectral analysis. COMPARISON: None. FINDINGS: All the vein s egments are visualized and compressible. There is normal spontaneous phasic flow with normal response to distal augmentation. Negative for DVT. IMPRESSION: 1. Negative for deep vein thrombosis. Cl Left Heart Cath With Coronary Angio And Grafts 09/17/2012 PROCEDURES PERFORMED 1. Left heart catheterization. 2. Selective coronary angiogram. 3. Left ventriculogram. HISTORY Ms. Desouza is a 32-year-old lady who presented to the hosp ital because of chest pain, found to have abnormal troponins, elevated at 7.6, so she was re ferred to our hospital for further evaluation. Initial workup by CTPA protocol and lower ext remity Doppler was negative for DVT for PE, so we referred her for left heart catheterizatio n for further evaluation of the [id number] AR. DESCRIPTION OF PROCEDURE The procedure details, alternatives and complications were explained to the patient. Informed consent was obtained. The patient was brought to the room and prepped in sterile fashion. Timeout was p erformed. Conscious sedation administered by independent observer. The right wrist was anes thetized with 1% lidocaine. The right radial artery was cannulized with 6-Egyptian Terumo pereira th. Then 2.5 mg verapamil, 200 mcg nitroglycerin and 5000 international units heparin given through the sheath. Over a 260 exchange wire, a diagnostic 5-Egyptian JL4 catheter advanced to the ascending aorta, selectively engaging the left main. Contrast was injected. Selective a ngiogram for the left main, LAD, left circumflex artery performed in different views. Over a guide wire, it was exchanged for a 5-Egyptian diagnostic JR4 catheter, selectively engaged th e RCA, contrast was injected and selective angiogram for the RCA was performed in different views. Over a guide wire, it was exchanged for a 5-Egyptian angled pigtail catheter, advanced to the left ventricle, and left ventriculogram was performed in the JACOME view. Over a guide w rmay, it was pulled out of the body. Sheath was removed. TR band was applied with good hemost asis. The patient was transferred to the recovery area in stable condition. FINDINGS HEMOD YNAMICS 1. Systemic pressure 106/64. 2. Left ventricular end-diastolic pressure 24. 3. No si gnificant aortic valve stenosis by pullback. ANGIOGRAM 1. Left main normal size, no signifi cant stenosis. 2. LAD proximal, mid and distal normal size, no significant stenosis. 3. Firs t and second diagonal normal size, no significant stenosis. Third diagonal is absent. 4. Left circumflex artery proximal and mid normal size, no significant stenosis. Third obtus e marginal with no significant stenosis. 5. First and second obtuse marginal are absent. 6. RCA proximal, mid and distal normal size, no significant stenosis. 7. Right PDA small in siz e, no significant stenosis. 8. Right AV groove artery normal size, no significant stenosis. 9. First, second and third right posterolateral arteries are small in size, no significan t stenosis. 10. Right dominant circulation. LEFT VENTRICULOGRAM Left ventriculogram showed EF 65%, with no regional wall motion abnormalities and no significant mitral valve regurgita tion. CONTRAST USED 46 mL. COMPLICATIONS None. ESTIMATED BLOOD LOSS Less than 20 mL. CON CLUSIONS 1. Normal coronary arteries. 2. Normal left ventricular systolic function. RECOMME NDATIONS Medical management and risk factor modification. Read by KYE SEARS MD 013 10:47 A Echo Cardiac Adult Complete 09/16/2012 Patient Name: JUAN CARLOS DESOUZA Date of : 1980 P erforming Physician: Kye Sears MD INDICATIONS ACUTE AR/ ELEVATED TROPONIN CONCLUSIONS 1. O verall left ventricular systolic function is normal with, an EF between 60 - 65 %. 2. No reg ional wall motion abnormalities. 3. The diastolic filling pattern is normal for the age of t aisha patient. 4. There is no evidence of pulmonary hypertension. FINDINGS -------- ECG rhythm : Sinus rhythm. Study: A 2-dimensional transthoracic echocardiogram with m-mode, spectral an d color flow Doppler was perfomed. Study: This was a technically adequate study. Left Ventr icle: Overall left ventricular systolic function is normal with, an EF between 60 - 65 %. L eft Ventricle: The left ventricle cavity size is normal. Left Ventricle: Left ventricular w all thickness is normal. Left Ventricle: No regional wall motion abnormalities. Left Ventr icle: The diastolic filling pattern is normal for the age of the patient. Right Ventricle: T aisha right ventricle is normal in size and function. Left Atrium: The left atrium is normal in size. Right Atrium: The right atrium is normal in size. Aortic Valve: The aortic valve is trileaflet, and appears anatomically normal. No aortic stenosis or regurgitation. Mitral Rosie ve: The mitral valve is normal. Mitral Valve: No mitral regurgitation. Tricuspid Valve: The tricuspid valve appears structurally normal. Tricuspid Valve: Mild tricuspid regurgitation present. Tricuspid Valve: There is no evidence of pulmonary hypertension. Tricuspid Valve : The right ventricular systolic pressure (pulmonary artery systolic pressure), as measured by Doppler, is 26.65mmHg. Pulmonic Valve: Pulmonic valve appears structurally normal. Pulmo ramos Valve: Trace pulmonic regurgitation. Pericardium: There is no pericardial effusion. IVC /Hepatic Veins: The IVC is normal size (1.5-2.5cm) and collapses >50% with sniff, consistent with central venous pressures of 5-10mmHg. Pulmonary Veins: The flow patterns, measured by Doppler, appear normal. Septum: Can not rule out left to right shunt through the interatrial septum by color Doppler. MEASUREMENTS IVC: 1.48 cm LA Major: 4.83 cm ED V(Teich): 126.63 ml IVSd: 0.76 cm LVIDd: 5.14 cm LVPWd: 0.89 cm LVOT Diam: 2.21 cm %FS: 39.66 % EF(Teich): 69.88 % ESV(Teich): 38.13 ml IVSs: 1.20 cm LVIDs: 3.10 cm LVPWs: 1.27 cm SV(Teich): 88.50 ml RA Major: 5.32 cm RVIDd: 3.01 cm LAESV(A-L): 3 6.37 ml LAESV Index (A-L): 18.37 ml/m2 LAAs A2C: 15.76 cm2 LAESV A-L A2C: 43.99 ml KHLOE s A2C: 4.79 cm LAAs A4C: 13.03 cm2 LAESV A-L A4C: 29.55 ml LALs A4C: 4.87 cm Ao Diam : 3.45 cm AV Cusp: 2.28 cm LA Diam: 3.19 cm LA/Ao: 0.92 %FS: 38 % EDV(Teich): 1 36.47 ml EF(Teich): 67.71 % ESV(Teich): 44.06 ml IVSd: 0.85 cm IVSs: 1.11 cm LVIDd: 5.31 cm LVIDs: 3.29 cm LVPWd: 1.06 cm LVPWs: 1.48 cm SV(Teich): 92.41 ml D-E Excur lilly: 1.91 cm E-F Jewell: 0.09 m/s EPSS: 0.69 cm IVC diameter: 1.43 cm IVC collapse: 0.31 cm IVC % collapse: 76.33 % HR: 61.24 BPM AV maxP.76 mmHg AV meanP.03 mmHg AV Vmax: 1.30 m/s AV Vmean: 0.82 m/s AV VTI: 27.60 cm XUAN Vmax: 3.25 cm2 XUAN (V TI): 3.64 cm2 LVCI Dopp: 3.44 l/minm2 LVCO Dopp: 6.81 l/min HR: 67.62 BPM LVOT maxPG : 4.83 mmHg LVOT meanP.80 mmHg LVSI Dopp: 50.89 ml/m2 LVSV Dopp: 100.76 ml LVOT Vmax: 1.09 m/s LVOT Vmean: 0.79 m/s LVOT VTI: 26.18 cm MCO: 465.80 ms MV A Jc: 0. 72 m/s MV DecT: 196.19 ms MV E Jc: 1.15 m/s MV E/A Ratio: 1.59 MV PHT: 55.82 ms MV A By PHT: 3.94 cm2 MV A Dur: 147.87 ms Septal e': 0.07 m/s Septal E/e': 16.11 Later al e': 0.12 m/s Lateral E/e': 9.19 P Vein A: 0.26 m/s P Vein A Dur: 110.90 ms P Vei n D: 0.48 m/s P Vein S/D Ratio: 1.42 P Vein S: 0.68 m/s HR: 60.78 BPM PV maxP .87 mmHg PV meanP.98 mmHg PV Vmax: 0.68 m/s PV Vmean: 0.47 m/s PV VTI: 17.25 cm RAP: 5 mmHg RVSP: 26.64 mmHg TR maxP.64 mmHg TR Vmax: 2.32 m/s TV A Jc: 0.51 m/s TV Dec Jewell: 2.91 m/s2 TV Dec Time: 264.84 ms TV E Jc: 0.77 m/s TV E/A Ratio: 1.50 Plant Safety Engineer: CARLOS A Authenticated by: Kye Sears MD Report Date/Time: 09-16-2012 19:4 4:25 HPI and Hospital Course: 1. A 32-year-old female with no significant past medical history o ther than untreated hyperlipidemia, nonsmoker, no history of premature heart disease who cam e to the emergency department complaining of chest pain at the right side of the chest radia ting towards the left lasting for 5 minutes, 10/10, associated with mild shortness of breath . The patient was brought to the emergency department at [facility]. The patient was pain free on arrival. The patient's EKG at [facility] emergency depar tment prior to transfer showed T-wave inversion in the inferior leads otherwise no acute ST or T-wave changes. Her troponin was elevated up to 7. The patient was started on aspirin, me toprolol, atorvastatin, and Lovenox. A D-dimer was also checked which was elevated. The mickey ent was recently started on an estrogen patch 3 weeks ago, and hence she underwent a CT scan of the chest with intravenous contrast to look for pulmonary embolism which was negative. A n ultrasound of the lower extremities was negative for deep venous thrombosis. Because of el evated troponin the patient underwent a cardiac catheterization by Dr. Sears which shows c lean arteries. Hence her workup in [facility] is negative for any PE or any coronary artery disease. The patient has been doing well since she came to the hospital and is being discharged home with followup with her primary care physician. The patient was put on pravastatin 20 mg p.o. daily for hyperlipidemia and was advised to lose weight by t and exercise. The patient was given 4 days of Mucomyst to prevent acute tubular necrosis. Her basic metabolic panel was checked in the morning which showed a glomerular filtration ra te of more than 60. 2. Iron-deficiency anemia for which she was given intravenous iron 2 doses here in the hosp ital and is being discharged on ferrous sulfate. Her hemoglobin is already trending up from 9.8 to 10.8. I spent more than 30 minutes talking to the patient, doing a physical examination, talking to Dr. Sears, and doing the discharge summary. BP 107/65 | Pulse 68 | Temp(Src) 98.2 F (36.8 C) (Oral) | Resp 16 | Ht 1.549 m (5' 1") | Wt 100 kg (220 lb 7.4 oz) | BMI 41.66 kg/m2 | SpO2 95% | ? No Intake/Output Summary (Last 24 hours) at 09/17/12 1116 Last data filed at 09/17/12 0802 Gross per 24 hour Intake 1191 ml Output 900 ml Net 291 ml Discharge Exam: Constitutional: Alert and oriented to person, place, and time. Appears well-developed and w ell-nourished. Cardiovascular: Normal rate, regular rhythm, normal heart sounds and intact distal pulses. Exam reveals no gallop and no friction rub. No murmur heard. Pulmonary/Chest: Effort normal and breath sounds normal. No stridor. No respiratory distres s. no wheezes. no rales. exhibits no tenderness. Abdominal: Soft. Bowel sounds are normal. exhibits no distension and no mass. There is no t enderness. There is no rebound and no guarding. Musculoskeletal: Normal range of motion.exhibits no tenderness. exhibits no edema. Neurological: Alert and oriented to person, place, and time. Has normal reflexes. display s normal reflexes. No cranial nerve deficit. Exhibits normal muscle tone. Coordination norm al. Skin: Skin is warm and dry. No rash noted. No erythema. No pallor. Psychiatric: Has a normal mood and affect. Behavior is normal. Judgment normal. Disposition: home Patient Instructions: Current Discharge Medication List START taking these medications Details pravastatin (PRAVACHOL) 20 MG tablet Take 1 tablet by mouth daily. Qty: 30 tablet, Refills: 0 CONTINUE these medications which have NOT CHANGED Details calcium carbonate (OS-JESSICA) 1250 MG tablet Take 1 tablet by mouth daily. ferrous sulfate 325 (65 FE) MG tablet Take 325 mg by mouth daily with breakfast. Activity: activity as tolerated Diet: cardiac diet and low fat, low cholesterol diet Wound Care: not applicable There are no Patient Instructions on file for this visit. Becki Carney MD [address] [facility] [address] [facility] [address] in 1 week Signed: YASMINE CYR 09/17/2012 11:16 AM documented in this en counter Progress Notes Conversion Transaction, Provider Unknown - 09/17/2012 5:09 PM PDTFormatting of this note m ight be different from the original. Progress Notes by Maty Lopez RN at 09/17/121708 Author: Maty Lopez RN Service: (none) Author Type: Registered Nurse Filed: 09/17/121710 Date of Service: 09/17/121708 Status: Signed Supervisor Rose Grading: Maty Lopez RN (Registered Nurse) Pt d/c home w/family via private vehicle. R Radial Cath site CDI. Pt vitals stable w/no c/o pain. Written & oral d/c instructions and prescriptions given. Pt & family w/no further que stions at this time. MATY LOPEZ RN onver lilly Transaction, Provider Unknown - 09/17/2012 3:50 PM PDT Progress Notes by Maty Lopez RN at 09/17/12 1550 Author: Maty Lopez RN Service: (none) Author Type: Registered Nurse Filed: 09/17/12 1707 Date of Service: 09/17/12 1550 Status: Signed Supervisor Rose Grading: Maty Lopez RN (Registered Nurse) RN began to teach pt about home care w/radial cath site. Pt stated she was feeling dizzy. H R began to drop into the 40's, BP remained stable, Pt w/decreased response to questions. Si te remained intact, & soft. Pt began to regain mentation w/in approx 2 min and stated that when she thinks about blood she starts to feel like she's going to pass out. Pt vitals stabl e. Pt appears comfortable w/no c/o dizziness. RN will continue monitor. MATY LOPEZ RN onver lilly Transaction, Provider Unknown - 09/16/2012 3:37 PM PDT Progress Notes by Ghulam Machuca RN at 09/16/12 1537 Author: Ghulam Machuca RN Service: (none) Author Type: Registered Nurse Filed: 09/16/12 1538 Date of Service: 09/16/12 1537 Status: Signed Supervisor Rose Grading: Ghulam Machuca RN (Registered Nurse) Received phone call from Dr. Cyr- updated him on patient's plan. Ghulam Machuca RN 3:38 PM asmine Cyr MD - 09/16/2012 3:36 PM PDTFormatting of this note might be different from the or iginal. Progress Notes by Yasmine Cyr MD at 09/16/12 1536 Author: Yasmine Cyr MD Service: Hospitalist Author Type: Physician Filed: 09/19/12 4328 Date of Service: 09/16/12 1536 Status: Signed Supervisor Rose Grading: Yasmine Cyr MD (Physician) Related Notes: Original Note by Yasmine Cyr MD (Physician) filed at 09/16/12 1544 [facility] Service: Hospitalist Progress Note Juan Carlos Desouza 32 y.o. 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 Blood work showed elevated troponin and the patient was transferred to [facility]. On arrival to the emergency department the patient's troponin was 7.7 w ith CPK of 402. EKG showed T-wave inversion in the inferior leads with ST elevation, otherwi se no acute changes. The patient was started on aspirin, atorvastatin, metoprolol, as well a s Lovenox 1 mg/kg b.i.d. Troponin trending downwards to 3.8. The patient's D-dimer was also positive around 1.7 and she was recently started on an estrogen patch 3 weeks ago which incr eased suspicion for pulmonary embolism hence the patient underwent CT scan of the chest per PE protocol which was negative for any PE. Ultrasound of the lower extremities was negative for DVT. The patient remained chest pain free since she came to the hospital and Dr. Sears was consulted who plans to do a cardiac catheterization in the morning for further workup o f chest pain. Today when I saw the patient in the morning she denied any chest pain or short ness of breath. No nausea. No vomiting. No abdominal pain. No dysuria. No leg tenderness or any other complaints. Scheduled Medications aspirin 324 mg Oral Once atorvastatin 40 mg Oral Nightly enoxaparin 1 mg/kg Subcutaneous Q12H ferric glucontate (FERRLECIT) IVPB 250 mg Intravenous Q24H heparin (porcine) 5,000 Units Intravenous Once metoprolol 25 mg Oral Daily sodium chloride 10 mL Intravenous Q8H DISCONTD: heparin (porcine) 5,000 Units Subcutaneous Q8H TAMMI Continuous Infusions sodium chloride 30 mL/hr at 09/15/12 2245 DISCONTD: heparin in D5W 50 units/mL Stopped (09/15/12 2345) PRN Medications acetaminophen, acetaminophen, iopamidol, nitroGLYCERIN, ondansetron, ondansetron, polyethyl concepcion glycol, zolpidem Allergy: No Known Allergies OBJECTIVE Vital Signs: BP 120/73 | Pulse 64 | Temp(Src) 97.8 F (36.6 C) (Oral) | Resp 14 | Ht 1.549 m (5' 1") | Wt 101.8 kg (224 lb 6.9 oz) | BMI 42.41 kg/m2 | SpO2 99% | ? No Temp: [97.5 F (36.4 C)-98.3 F (36.8 C)] 97.8 F (36.6 C) (09/17 1119) BP: (106-133)/(58-91) 120/73 mmHg (09/17 1119) Heart Rate: [64-81] 64 (09/17 1119) Resp: [14-16] 14 (09/17 1119) SpO2: [97 %-100 %] 99 % (09/17 1119) Height: [154.9 cm (5' 1")] 154.9 cm (5' 1") (09/15 2014) Weight: [90.719 kg (200 lb)-101.8 kg (224 lb 6.9 oz)] 101.8 kg (224 lb 6.9 oz) (09/15 2218 ) BMI (Calculated): [37.9] 37.9 (09/15 2014) I&O Detailed Table: Intake/Output Summary (Last 24 hours) at 09/16/12 1536 Last data filed at 09/16/12 0000 Gross per 24 hour Intake 450 ml Output 0 ml Net 450 ml Hemodynamics Last 24hrs: Examination: Constitutional: Alert and oriented to person, place, and time. Appears well-developed and w ell-nourished. Cardiovascular: Normal rate, regular rhythm, normal heart sounds and intact distal pulses. Exam reveals no gallop and no friction rub. No murmur heard. Pulmonary/Chest: Effort normal and breath sounds normal. No stridor. No respiratory distres s. no wheezes. no rales. exhibits no tenderness. Abdominal: Soft. Bowel sounds are normal. exhibits no distension and no mass. There is no t enderness. There is no rebound and no guarding. Musculoskeletal: Normal range of motion.exhibits no tenderness. exhibits no edema. Neurological: Alert and oriented to person, place, and time. Has normal reflexes. display s normal reflexes. No cranial nerve deficit. Exhibits normal muscle tone. Coordination norm al. Skin: Skin is warm and dry. No rash noted. No erythema. No pallor. Psychiatric: Has a normal mood and affect. Behavior is normal. Judgment normal. Laboratory: Glucose: Results Procedure Component Value Units Date/Time Troponin I [[id number]] (Abnormal) Collected:09/16/12 1017 Specimen Information:Blood Updated:09/16/12 1245 TROPONIN I 3.81 (HH) ng/mL , urine [[id number]] Collected:09/16/12 1140 Specimen Information:Urine / Urine, Clean Catch Updated:09/16/12 1201 Preg Test, Ur NEGATIVE Iron panel [[id number]] (Abnormal) Collected:09/16/12 1017 Specimen Information:Blood Updated:09/16/12 1143 IRON 70 ug/dL TIBC 521 (H) ug/dL IRON % SAT 13 (L) % Ferritin [[id number]] Collected:09/16/12 1017 Specimen Information:Blood Updated:09/16/12 1143 FERRITIN 8 ng/mL Folate [[id number]] Collected:09/16/12 1017 Specimen Information:Blood Updated:09/16/12 1143 FOLATE 29.2 ng/mL Lipid panel [[id number]] (Abnormal) Collected:09/16/12 1017 Specimen Information:Blood Updated:09/16/12 1143 CHOLESTEROL 211 (H) mg/dL Triglycerides 162 (H) mg/dL HDL CHOL 63 mg/dL LDL CALC 116 (H) mg/dL Vitamin B12 [[id number]] Collected:09/16/12 1017 Specimen Information:Blood Updated:09/16/12 1044 Troponin I [[id number]] (Abnormal) Collected:09/16/12 0248 Specimen Information:Blood Updated:06/01/13 0347 TROPONIN I 6.41 (HH) ng/mL Magnesium [[id number]] Collected:09/16/12247 MAGNESIUM 1.9 mg/dL Updated:09/16/12346 Phosphorus [[id number]] Collected:09/16/12247 PHOSPHORUS 3.2 mg/dL Updated:09/16/12346 TSH [[id number]] Collected:09/16/12247 TSH 2.53 uIU/mL Updated:09/16/12346 Basic metabolic panel [[id number]] (Abnormal) Collected:09/16/12247 SODIUM 145 (H) mmol/L Updated:09/16/12346 POTASSIUM 3.4 (L) mmol/L CHLORIDE 109 mmol/L CO2 25 mmol/L ANION GAP AGAP 14 mmol/L GLUCOSE 105 (H) mg/dL BUN 10 mg/dL CREATININE 0.82 mg/dL BUN/CREAT 12 CALCIUM 8.7 mg/dL EGFR >60 mL/min/1.73m2 aPTT [[id number]] (Abnormal) Collected:09/16/12247 Specimen Information:Blood Updated:09/16/12338 APTT 36 (H) seconds CBC w/auto diff (reflex to manual) [[id number]] (Abnormal) Collected:09/16/12247 WBC 6.1 K/uL Updated:09/16/12314 RBC 3.54 (L) M/uL HGB 9.8 (L) g/dL HCT 30.1 (L) % MCV 85.2 fl MCH 27.8 pg MCHC 32.6 g/dL RDW SD 42.4 fl PLT 264 K/uL MPV 8.6 fl DIFF TYPE AUTOMATED NEUTROPHILS 53.1 % LYMPHOCYTES 34.7 % MONOCYTES 10.7 % EOSINOPHILS 1.2 % BASOPHILS 0.3 % NEUTROPHILS ABS 3.2 K/uL LYMPHOCYTES ABS 2.1 K/uL MONOCYTES ABS 0.7 K/uL EOSINOPHILS ABS 0.1 K/uL BASOPHILS ABS 0.0 K/uL Cardiac Panel [[id number]] (Abnormal) Collected:09/15/122026 WBC 7.8 K/uL Updated:09/15/12 2100 RBC 3.65 (L) M/uL HGB 10.0 (L) g/dL HCT 30.6 (L) % MCV 84.0 fl MCH 27.4 pg MCHC 32.7 g/dL RDW SD 41.6 fl PLT 264 K/uL MPV 8.7 fl DIFF TYPE AUTOMATED NEUTROPHILS 66.6 % LYMPHOCYTES 21.8 % MONOCYTES 10.4 % EOSINOPHILS 0.8 % BASOPHILS 0.4 % NEUTROPHILS ABS 5.2 K/uL LYMPHOCYTES ABS 1.7 K/uL MONOCYTES ABS 0.8 K/uL EOSINOPHILS ABS 0.1 K/uL BASOPHILS ABS 0.0 K/uL SODIUM 142 mmol/L POTASSIUM 3.4 (L) mmol/L CHLORIDE 108 mmol/L CO2 24 mmol/L ANION GAP AGAP 13 mmol/L GLUCOSE 91 mg/dL BUN 10 mg/dL CREATININE 0.86 mg/dL BUN/CREAT 12 CALCIUM 8.8 mg/dL TOTAL PROTEIN 7.6 g/dL Albumin 3.2 (L) g/dL GLOBULIN 4.4 g/dL A/G 0.7 (L) TBIL 0.3 mg/dL ALK PHOS 63 U/L AST 56 (H) U/L ALT 27 U/L EGFR >60 mL/min/1.73m2 CPK 402 (H) U/L INR 1.1 APTT 24 seconds MMB 36.1 (H) ng/mL CK-MB Index 9.0 BNP [[id number]] Collected:09/15/122026 Specimen Information:Blood Updated:09/15/122055 BRAIN NATRIURETIC PEPTIDE 36.6 pg/mL D-dimer, quantitative [[id number]] (Abnormal) Collected:09/15/122026 Specimen Information:Blood Updated:09/15/122044 D DIMER,QUANT 1.71 (H) ug/mL FEU CBC: Lab Results Component Value Date WBC 6.1 09/16/2012 RBC 3.54* 09/16/2012 HGB 9.8* 09/16/2012 HCT 30.1* 09/16/2012 MCV 85.2 09/16/2012 MCH 27.8 09/16/2012 MCHC 32.6 09/16/2012 RDW 42.4 09/16/2012 PLT 264 09/16/2012 MPV 8.6 09/16/2012 DIFFTYPE AUTOMATED 09/16/2012 CMP: Lab Results Component Value Date NA 145* 09/16/2012 K 3.4* 09/16/2012 CL 109 09/16/2012 CO2 25 09/16/2012 ANIONGAP 14 09/16/2012 GLUF 105* 09/16/2012 BUN 10 09/16/2012 CREATININE 0.82 09/16/2012 BCR 12 09/16/2012 CA 8.7 09/16/2012 PROT 7.6 09/15/2012 ALB 3.2* 09/15/2012 GLOB 4.4 09/15/2012 BILITOT 0.3 09/15/2012 ALP 63 09/15/2012 AST 56* 09/15/2012 ALT 27 09/15/2012 EGFR >60 09/16/2012 Magnesium: Lab Results Component Value Date MG 1.9 09/16/2012 Phosphorus: Lab Results Component Value Date PHOS 3.2 09/16/2012 PT/INR: Lab Results Component Value Date INR 1.1 09/15/2012 Last 3 Troponin: Lab Results Component Value Date TROPONINI 3.81* 09/16/2012 TROPONINI 6.41* 09/16/2012 ABG: No results found for this basename: POCTEMP, POCFIO2, POCPH, POCPCO, POCPO2, POCHCO, POCTCO 2, POCBD, BEART, POCSO2, POCCMT Ct Chest Pulmonary Embolism With Contrast 09/16/[address] CHEST PULMONARY EMBOLISM W CONTRAST HISTORY: 32 years. Female. Chest pain. TECHNIQUE: CT angiography of the thorax was performed following a the uneventfu l intravenous administration of 80 cc of Isovue 370. This is a true CT angiography of the th orax with 2-D coronal MIP images obtained. COMPARISON: None. FINDINGS: The heart is l in size without pericardial effusion. No enlarged mediastinal or hilar lymph nodes . Linea r areas of decrease density within the aortic arch and pulmonary artery, felt to represent m otion artifact. Symmetric enhancement of the pulmonary arteries bilaterally without intralum inal filling defects to suggest pulmonary embolism. Minimal patchy airspace disease within t he posterior right upper lobe. This is likely infectious or inflammatory in nature. IMPRES LILLY: 1. Negative for pulmonary embolism. 2. Minimal patchy airspace disease within the po sterior right upper lobe that may be infectious or inflammatory in nature. Electronically s igned by Milan Roa DO on 09/16/2012 1:42 PM PROBLEM LIST Active Problems: Chest pain, unspecified Troponin level elevated Morbid obesity Anemia, unspecified ASSESSMENT & PLAN 1. Chest pain with elevated troponin secondary to acute coronary syndrome unless proven oth erwise. CT scan of the chest pulmonary embolism with contrast was negative for PE. Continue the patient on aspirin, metoprolol, atorvastatin, and Lovenox 1 mg/kg b.i.d. Dr. Ya ross cardiology service has been consulted and the case was discussed with him, who plans to do a cardiac catheterization in the morning for further workup. 2. Hyperlipidemia. Start the patient on atorvastatin. 3. Anemia secondary to profound iron deficiency. Will start the patient on IV iron. YASMINE CYR MD 09/16/2012 onversion Transactio n, Provider Unknown - 09/16/2012 3:35 PM PDT Progress Notes by Ghulam Machuca RN at 09/16/12 1538 Author: Ghulam Machuca RN Service: (none) Author Type: Registered Nurse Filed: 09/16/12 1534 Date of Service: 09/16/12 1535 Status: Signed Supervisor Rose Grading: Ghulam Machuca RN (Registered Nurse) Spoke with Dr. Sears about plan. Plan for L heart cath tomorrow. Cleared for gen diet n ow. NPO after MN. Ghulam Machuca RN 09/16/2012 3:37 PM onver lilly Transaction, Provider Unknown - 09/16/2012 3:24 PM PDT Progress Notes by Ghulam Machuca RN at 09/16/12 1524 Author: Ghulam Machuca RN Service: (none) Author Type: Registered Nurse Filed: 09/16/12 1537 Date of Service: 09/16/12 1524 Status: Signed Supervisor Rose Grading: Ghulam Machuca RN (Registered Nurse) Spoke with Dr. Cyr about plan for patient. See new orders. Requests increase IVF in ord er to clear contrast and to go ahead and give metoprolol despite hr and bp WNL. Check with Ya about plan Ghulam Machuca RN 09/16/2012 3:37 PM onver lilly Transaction, Provider Unknown - 09/16/2012 1:03 PM PDT Progress Notes by Ghulam Machuca RN at 09/16/12 1303 Author: Ghulam Machuca RN Service: (none) Author Type: Registered Nurse Filed: 09/16/12 1305 Date of Service: 09/16/12 1303 Status: Signed Supervisor Rose Grading: Ghulam Machuca RN (Registered Nurse) Clarified order for NM stress test with Dr. Sears. Pt taken down for CT of chest, dopple r of legs and ECHO by transport.. Ghulam Machuca RN 09/16/2012 1:05 PM onver lilly Transaction, Provider Unknown - 09/16/2012 10:57 AM PDT Progress Notes by Ghulam Machuca RN at 09/16/12 1057 Author: Ghulam Machuca RN Service: (none) Author Type: Registered Nurse Filed: 09/16/12 1058 Date of Service: 09/16/12 105 Status: Signed Supervisor Rose Grading: Ghulam Machuca RN (Registered Nurse) Paged and spoke with Dr. Cyr. He states urine test ok for clearance prior to C T test. Ghulam Machuca RN 09/16/2012 10:58 AM onver lilly Transaction, Provider Unknown - 09/16/2012 12:30 AM PDT Progress Notes by Netta Phillips RN at 09/16/12 003 Author: Netta Phillips RN Service: (none) Author Type: Registered Nurse Filed: 09/16/12 07 Date of Service: 09/16/1229 Status: Signed Supervisor Rose Grading: Netta Phillips RN (Registered Nurse) heparin in D5W 50 units/mL infusion Order Information Sent: 09/15/2012 1988 - Other Status: Done 09/16/2012 003 by Palak Banks [facility] Message: This heparin shouldn't have been discontinued. Rx Comment: I spoke with To n - please stop the drip (already discontinued) and continue the ordered subcutaneous hepari n. Thanks. Concerned about cancelled heparin gtt. Notified pharmacy and received above message from Marj Banks RPH that order was verified with Dr. Jensen. Netta Laird, RN onver lilly Transaction, Provider Unknown - 09/15/2012 11:32 PM PDT Progress Notes by Palak Banks RPH at 09/15/122331 Author: Palak Banks RPH Service: (none) Author Type: Pharmacist Filed: 09/15/122331 Date of Service: 09/15/122331 Status: Signed Supervisor Rose Grading: Palak Banks RPH (Pharmacist) Clinical Pharmacy Note: Renal Monitoring Juan Carlos Desouza 32 y.o. female Height: 154.9 cm Weight: 101.8 kg CREATININE: 0.86 (09/15/122026) Estimated creatinine clearance - Cockcroft-Gault CrCl: 102.9 mL/min Pharmacy dosing for renal function per Dr. Jensen. Currently, there are no medications needing to be adjusted. Pharmacy will continue to monit or for changes in medication orders and in renal function and adjust accordingly. Palak Banks, PharmD 09/15/2012 11:31 PM docume nted in this encounter H&P Notes Tristen Jensen MD - 09/15/2012 8:38 PM PDT H&P by Tristen Jensen MD at 09/15/122037 Author: Tristen Jensen MD Service: (none) Author Type: Physician Filed: 09/21/12 1030 Date of Service: 09/15/122037 Status: Addendum Supervisor Rose Grading: Tristen Jensen MD (Physician) Related Notes: Original Note by Tristen Jensen MD (Physician) filed at 09/15/122109 [facility] Service: Hospitalist History and Physical Date of Admission: 09/15/2012 Requesting Physician: Emergency Department Reason for Admission: Elevated troponin CHIEF COMPLAINT: Chest pain HISTORY OF PRESENT ILLNESS The patient is a 32 y.o. female with significant past medical history of chest pain in 09 w ith no significant work up that pt can remember. Pt had chest pain today without any other s ymptoms. It started 11 am while she was at work, (not strenuous though), from the middle of chest th en radiates to left side. Vomited at 430am. With CP there's no N/V, no diaphoresis, no visua l problems or changes. Sharp pain x 5mins. No FERGUSON. Last chest pain 2008, but nothing was done for it that she can remember. Today pt initially presented to Urgent care clinic in [facility] on; EKG and labs done. Then sent home. Was called back later due to elevated trop of 7. Then she went to [facility]. Cardiac work up done. ASA given. There wasn't equipment t o do echo, therefore sent pt here. Labs from [place]: trop: 7.07, CK: 388, CKMB 66.5. K: 3.2. 3.4 here. Rest of BMP is nor mal. Hgb: 10.7. EKG normal. LAD. PSHx: Had D&C 3 wks ago. ROS: eating and sleeping good. No changes in BM and urination. No fever chills, no nausea o r vomiting. FHx: mother; hysterectomy yesterday. Father: A&W. Bro/sis: A&W. No fam history of CAD. SHx: tob: none, etoh: none, lives c 3 daughters. Works in [employer]. Home meds: iron and calcium. REVIEW OF SYSTEMS 12 point ROS reviewed and negative other than above History reviewed. No pertinent past medical history. Past Surgical History Procedure Date Dilation and curettage of uterus 08/2012 No Known Allergies (Not in a hospital admission) History reviewed. No pertinent family history. History Smoking status Never Smoker Smokeless tobacco Not on file History Alcohol Use No History Drug Use No PHYSICAL EXAM Vital Signs: BP 133/91 | Pulse 81 | Temp(Src) 97.8 F (36.6 C) (Oral) | Resp 16 | Ht 1.549 m (5' 1") | Wt 90.719 kg (200 lb) | BMI 37.79 kg/m2 | SpO2 97% General Appearance: No apparent distress. Conversive and appropriate to place and person. HEENT: Normocephalic, atraumatic, pupils EOMI, PERRLA. Nose: no septal deviation or dischar ge. Ears: normal size, location, and contour. NECK: is supple, full ROM, nontender. LUNGS: clear to auscultation bilaterally with no wheezing, No rales or rhonchi audible. HEART: S1S2, Regular rate and rhythm without murmurs, gallops or rubs. ABDOMEN: obese; Bowel sound is normoactive, abdomen is soft, non-tender non-distended ,no m ass. EXTREMITIES:No lower extermity edema, No clubbing or cyanosis bilaterally NEURO: Cranial Nerves 2-12 appears intact, Gait not examined, Muscle strength appears equal bilaterally, Sensation grossly intact. PSYCH: Alert, awake and Oriented x3. SKIN: erythematous rash on right LE. No bruises, lesions, or ulcers. DATA CBC: Lab Results Component Value Date WBC 7.8 09/15/2012 CMP: Lab Results Component Value Date NA 142 09/15/2012 BMP: Lab Results Component Value Date NA 142 09/15/2012 Hepatic Function Panel: Lab Results Component Value Date PROT 7.6 09/15/2012 Magnesium: No results found for this basename: MG Phosphorus: No results found for this basename: PHOS PT/INR: No results found for this basename: PROTIME, INR PTT: Lab Results Component Value Date APTT 24 09/15/2012 [APTT No results found. ASSESSMENT & PLAN Active Problems: Chest pain, unspecified; with Troponin level elevated CP has resolved now. But unclear cause of troponin level. Will pursue with NM stress test tomorrow. Dr. Cisneros aware. Check CPK. TSH. Morbid obesity; recommend diet and exercise Anemia, unspecified; most likely iron deficiency; cont to follow. Disposition: observation Code Status: No Order Primary Care Physician: BECKI Jensen MD 09/15/2012 documente d in this encounter Consult Notes Kye Sears MD - 09/16/2012 12:34 PM PDT Consults by Kye Sears MD at 09/16/12 1234 Author: Kye Sears MD Service: Cardiology Author Type: Physician Filed: 09/18/120 Date of Service: 09/16/12 1234 Status: Signed Supervisor Rose Grading: Kye Sears MD (Physician) Related Notes: Original Note by Kye Sears MD (Physician) filed at 09/16/12 1240 [facility] Service: Cardiology Initial Consult Note Name of Public Health Registrar: Kye Sears MD Date of Admission: 09/15/2012 Reason for Consultation: Elevated Trop Requesting Physician: Dr. Cyr, Hospitalist History Obtained From: patient CHIEF COMPLAINT: Chest pain yesterday am. HISTORY OF PRESENT ILLNESS: Ms. Desouza is a 32-year-old lady who started having chest pain yesterday in the morning at rest. The pain was located in the center. It was radiating to the left shoulder, described a s "a knife going through my body." It started at 10/10 and for 5 minutes it started to ease down to 2/10 and described as a pinch. The pain was continuous. It eased with p.o. Tylenol t hat was given in the urgent care. No similar pain in the past. A few hours before the pain started, the patient started to have pain in the right lower ex tremity associated with swelling and redness. Upon presentation to [facility] emergency room, she had an ECG that showed left a xis deviation, T-wave inversion in the inferior leads, otherwise no acute ST or T changes. B lood test was checked and troponin was elevated at 7. Impression was non-ST elevation AR and so she was referred to our hospital. When I saw the patient today in the morning, she had no more chest pain but she still had t he swelling in the right lower extremity. Upon further questioning, the patient had started estrogen patch 3 weeks ago after having a miscarriage and excessive bleeding that led to some anemia, for which she is taking iron romero pplements. The patient had 3 miscarriages in the past, and she has 3 healthy daughters but she is not sure why she is having such frequent miscarriages. The patient had never had any problems with the heart before. She has never been risk for h ypercoagubility in the past. REVIEW OF SYSTEMS Negative except for pertinent items noted in HPI GENERAL: no history of recent fever or chills. No history of easy fatigability. NEUROLOGICAL: No history of dizziness. No history of recent loss of consciousness. No histo ry of weakness. No history of numbness. No history of double vision. No history of temporary blindness. CARDIAC: Chest pain. No history of palpitations. RESPIRATORY: No history of exertional/rest shortness of breath. No history of cough. Nohist ory of sputum. GASTROINTESTINAL: No history of nausea. No history of vomiting. No history of abdominal bailee n. No history of change in bowel habits. GENITOURINARY: no history or dysuria or change in the color or the urine. VASCULAR: No history of claudication. Swelling of right lower extremitie. SKIN: Redness of the right LE.. ENDOCRINE: No history of excessive sweating. No history of recent weight changes. MUSCULOSKELETAL: No history of joint pain. No history of back pain. No history of muscle ac hes. PSYCHIATRIC: No history of of depression. No history of anxiety. PAST MEDICAL & SURGICAL HISTORY History reviewed. No pertinent past medical history. Past Surgical History Procedure Date Dilation and curettage of uterus 08/2012 MEDICATIONS Home Medications Prescriptions prior to admission Medication Sig Dispense Refill calcium carbonate (OS-JESSICA) 1250 MG tablet Take 1 tablet by mouth daily. ferrous sulfate 325 (65 FE) MG tablet Take 325 mg by mouth daily with breakfast. Inhospital Medications aspirin 324 mg Oral Once atorvastatin 40 mg Oral Nightly enoxaparin 1 mg/kg Subcutaneous Q12H heparin (porcine) 5,000 Units Intravenous Once metoprolol 25 mg Oral Daily sodium chloride 10 mL Intravenous Q8H DISCONTD: heparin (porcine) 5,000 Units Subcutaneous Q8H TAMMI sodium chloride 30 mL/hr at 09/15/12 2245 DISCONTD: heparin in D5W 50 units/mL Stopped (09/15/12 2345) Allergies No Known Allergies FAMILY HISTORY History reviewed. No pertinent family history. SOCIAL HISTORY History Social History Marital Status: Legally Spouse Name: N/A Number of Children: N/A Years of Education: N/A Occupational History Not on file. Social History Main Topics Smoking status: Never Smoker Smokeless tobacco: Not on file Alcohol Use: No Drug Use: No Sexually Active: Other Topics Concern Not on file Social History Narrative No narrative on file PHYSICAL EXAM Vital Signs: BP 120/73 | Pulse 64 | Temp(Src) 97.8 F (36.6 C) (Oral) | Resp 14 | Ht 1.549 m (5' 1") | Wt 101.8 kg (224 lb 6.9 oz) | BMI 42.41 kg/m2 | SpO2 99% | ? No Intake/Output Summary (Last 24 hours) at 09/16/12 1234 Last data filed at 09/16/12 0000 Gross per 24 hour Intake 450 ml Output 0 ml Net 450 ml General appearance: alert and cooperative HEENT: No xanthelasmas. Extraocular movements were intact. No jaundice. NECK: no JVD, lymphadenopathy. Trachea is at midline. Thyroid is not palpable. CARDIAC: There is normal S1 and S2. No added sounds, murmurs, gallop, or rub. CHEST: Normal bilateral symmetrical chest excursion. Good bilateral air entry with no crack les or wheezing. No evidence of dullness. ABDOMEN: Soft and lax. No tenderness. No palpable organs. Active bowel sounds. EXTREMITIES: Swelling in the right LE. No tenderness. VASCULAR: Right carotid artery is +2 with no bruit. Left carotid artery is +2 with no bruit. Right radial artery is +2. Left radial artery is +2. NEURO: Alert and oriented times three with no focal deficit. Cranial nerves are grossly no rmal. SKIN: No bruises or rash. DATA Lab 09/16/12247 NA 145* K 3.4* CO2 25 BUN 10 CREATININE 0.82 GLUCOSE -- CALCIUM -- MG 1.9 Lab 09/16/1224709/15/122026 CKTOTAL -- 402* CKMB -- 36.1* CKMBINDEX -- 9.0 TROPONINI 6.41* -- Lab 09/16/12247 WBC 6.1 HGB 9.8* HCT 30.1* MCV 85.2 PLT 264 EKG: Sinus rhythm, heart rate of 63, left axis deviation, T-wave inversions in the inferior leads, otherwise no acute ST or T changes. ASSESSMENT & PLAN A 32-year-old lady with a history of anemia, 3 miscarriages in the past, obesity, possible hypercholesterolemia. Presented for evaluation of chest pain and right lower extremity swelling. Blood test showed elevated troponin. ECG showed T-wave inversion in inferior leads with ST elevation, otherwise no acute changes . I believe the most likely diagnosis is right lower extremity DVT and pulmonary embolism cau sing the chest pain and cardiac strain with elevated troponin levels. I agree with the current medications including the IV heparin. We are going to check echocardiogram for further assessment of the heart function. If the CTPA is negative for PE, then we are going to evaluate for other possibilities. Thank you for allowing me to participate in the care of this patient. Code Status: Full Code Primary Care Physician: BECKI Sears MD 09/16/2012 documented in this enc ounter ED Notes Conversion Transaction, Provider Unknown - 09/15/2012 8:37 PM PDTFormatting of this note m ight be different from the original. ED Notes by Iveth Owens RN at 09/15/122036 Author: Iveth Owens RN Service: (none) Author Type: Registered Nurse Filed: 09/15/122036 Date of Service: 09/15/122036 Status: Signed Supervisor Rose Grading: Iveth Owens RN (Registered Nurse) Dr. Bazan at bedside. Iveth Owens RN 09/15/122036 rley Tenorio MD - 09/15/2012 8:23 PM PDTFormatting of this note might be different from the o riginal. ED Provider Notes by Arley Tenorio MD at 09/15/122022 Author: Arley Tenorio MD Service: (none) Author Type: Physician Filed: 09/15/122146 Date of Service: 09/15/122022 Status: Signed Supervisor Rose Grading: Arley Tenorio MD (Physician) [facility] Department of Emergency Medicine History of Present Illness Patient Identification Juan Carlos Desouza is a 32 y.o. female. Patient information was obtained from patient. History/Exam limitations: none. Patient presented to the Emergency Department by: [facility] Chief Complaint Chief Complaint Patient presents with Chest Pain Pt. has chest pain. Pt. is a transfer from [facility] ER. The patient complains of chest pain. The discomfort is described as sharp, located central chest with radiation to the left shoudler. Onset of symptoms was 11 am today, with a resolv ing course since that time. The chest pain occured while the patient was at rest. The patie nt also complains of the following symptoms: no dyspnea, no nausea. Patient's cardiac risk factors include: obesity. 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 PCP is: BECKI CARNEY History reviewed. No pertinent past medical history. Past Surgical History Procedure Date Dilation and curettage of uterus 08/2012 Prior to Admission medications Medication Sig Start Date End Date Taking? Authorizing Provider calcium carbonate (OS-JESSICA) 1250 MG tablet Take 1 tablet by mouth daily. Yes Historical Pr ovider ferrous sulfate 325 (65 FE) MG tablet Take 325 mg by mouth daily with breakfast. Yes Hist orical Provider No Known Allergies History Social History Marital Status: Legally Spouse Name: N/A Number of Children: N/A Years of Education: N/A Occupational History Not on file. Social History Main Topics Smoking status: Never Smoker Smokeless tobacco: Not on file Alcohol Use: No Drug Use: No Sexually Active: Other Topics Concern Not on file Social History Narrative No narrative on file History reviewed. No pertinent family history. Review of Systems Constitutional: Negative for: fever, chills, fatigue, sweats weight loss Eyes: Negative for: decreased vision or irritated eyes Nose: Negative for: nosebleed Throat: Negative for: mouth sores Cardiovascular/Respiratory: Negative for: cough Gastrointestinal: Negative for: abdominal pain, vomiting, diarrhea, black or bloody stools Genitourinary: Negative for: dysuria, hematuria, urinary problems Musculoskeletal: Negative for: myalgias and arthralgias Skin: Negative for: laceration or lesion Neuro and psych: Negative for: fainting, head injury, seizure, trouble walking Endocrine/Heme/Lymph: Negative for: swollen lymph nodes, easy bruising All systems reviewed and otherwise negative Physical Exam BP 133/91 | Pulse 81 | Temp(Src) 97.8 F (36.6 C) (Oral) | Resp 16 | Ht 1.549 m (5' 1") | Wt 90.719 kg (200 lb) | BMI 37.79 kg/m2 | SpO2 97% Vital signs have been reviewed and nromal Pulse Oximetry interpretation: Normal on room air General: Alert, no active distress Eyes: Normal inspection, pupils equal and round, non-icteric ENT: Ears normal Nose normal Pharynx normal Neck: Normal inspection Supple No lymphadenopathy Cardiovascular: Regular rate and rhythm, no murmurs Respiratory: Lungs clear, no wheezing, no respiratory distress Abdomen: Soft, non-tender, non-distended No guarding or rebound Genitourinary: Deferred Rectal exam: Deferred Back: Normal inspection Skin: Color normal Warm and dry No rash Neuro: No motor deficit No sensory deficit Normal gait Medical Decision Making and Emergency Department Course Chest pain General The patient presents with a chief complaint of chest discomfort. The list of possible sadi gent diagnoses that the patient requires an evaluation for includes (but is not limited to) hypercoagulable state, anemia, dehydration, renal failure, electrolyte changes, unstable ang megan, aortic dissection, acute myocardial ischemia, arrhythmia, congestive heart failure, per icarditis, effusions, pulmonary edema and anxiety with hyperventilation. I feel that labora tory testing and further diagnostic testing is necessary to ensure that there is no acute em ergent cause of the symptoms. I have ordered a 12 lead EKG, CXR, CBC with diff, CMP, INR, C K, CKMB, and troponin. Patient will be placed on the media monitor to ensure no life thre atening arrhythmia develops and will be given supplemental oxygen via nasal cannula. ED Department Course 8:35. Hospitalist consult requested. Relevant history and workup of the case discussed wi th the hospitalist fashion director and they will evaluate patient in the emergency department for ad mission. 9:44. D dimer elevated, she has no persistent dyspnea or chest pain, PE on differential, h eparin has been ordered. Records Reviewed Old medical records. Laboratory Evaluation Labs Reviewed [facility] [place] W/O TRP (ED ONLY) - Abnormal; Notable for the following: RBC 3.65 (*) Testing performed at [facility] [address] HGB 10.0 (*) Testing performed at [facility] [facility];[place] [address] HCT 30.6 (*) Testing performed at [facility];[address] [place] [address];[place] [address] POTASSIUM 3.4 (*) Testing performed at [facility] [place] [address] Albumin 3.2 (*) Testing performed at [facility];[address] [place] [address] A/G 0.7 (*) Testing performed at [facility] [place] [address] AST 56 (*) Testing performed at [facility];[address] [place] [address];[place] [address] CPK 402 (*) Testing performed at [facility];[address] [place] [address] MMB 36.1 (*) Testing performed at [facility];[address] [place] [address] All other components within normal limits D-DIMER, QUANTITATIVE - Abnormal; Notable for the following: D DIMER,QUANT 1.71 (*) All other components within normal limits POC CARDIAC TROPONIN - Abnormal; Notable for the following: POC CARDIAC TROPONIN 7.77 (*) All other components within normal limits BRAIN NATRIURETIC PEPTIDE Results Procedure Component Value Units Date/Time Cardiac Panel [[id number]] (Abnormal) Collected:09/15/122026 WBC 7.8 K/uL Updated:09/15/122099 RBC 3.65 (L) M/uL HGB 10.0 (L) g/dL HCT 30.6 (L) % MCV 84.0 fl MCH 27.4 pg MCHC 32.7 g/dL RDW SD 41.6 fl PLT 264 K/uL MPV 8.7 fl DIFF TYPE AUTOMATED NEUTROPHILS 66.6 % LYMPHOCYTES 21.8 % MONOCYTES 10.4 % EOSINOPHILS 0.8 % BASOPHILS 0.4 % NEUTROPHILS ABS 5.2 K/uL LYMPHOCYTES ABS 1.7 K/uL MONOCYTES ABS 0.8 K/uL EOSINOPHILS ABS 0.1 K/uL BASOPHILS ABS 0.0 K/uL SODIUM 142 mmol/L POTASSIUM 3.4 (L) mmol/L CHLORIDE 108 mmol/L CO2 24 mmol/L ANION GAP AGAP 13 mmol/L GLUCOSE 91 mg/dL BUN 10 mg/dL CREATININE 0.86 mg/dL BUN/CREAT 12 CALCIUM 8.8 mg/dL TOTAL PROTEIN 7.6 g/dL Albumin 3.2 (L) g/dL GLOBULIN 4.4 g/dL A/G 0.7 (L) TBIL 0.3 mg/dL ALK PHOS 63 U/L AST 56 (H) U/L ALT 27 U/L EGFR >60 mL/min/1.73m2 CPK 402 (H) U/L INR 1.1 APTT 24 seconds MMB 36.1 (H) ng/mL CK-MB Index 9.0 BNP [[id number]] Collected:09/15/122026 Specimen Information:Blood Updated:09/15/122055 BRAIN NATRIURETIC PEPTIDE 36.6 pg/mL D-dimer, quantitative [[id number]] (Abnormal) Collected:09/15/122026 Specimen Information:Blood Updated:09/15/122044 D DIMER,QUANT 1.71 (H) ug/mL FEU Available labs reviewed and interpreted by me. Radiology Evaluation Imaging Results None Available radiology studies reviewed and interpreted contemporaneously by me. EKG Interpretation Rhythm: Sinus Ventricular Rate: normal TX Interval: Normal ST Segments: Normal Significant Q-waves: None Blocks: None Left axis deviation ED Diagnoses Final diagnoses NSTEMI (non-ST elevated myocardial infarction) Chest pain Disposition: ED Disposition Admit/Observation Bed request special needs: Telemetry Diagnosis?: chest pain, NSTEMI Additional Documentation Procedures Arley Tenorio MD 09/15/122146 onversion Transacti on, Provider Unknown - 09/15/2012 8:21 PM PDTFormatting of this note might be different fro m the original. ED Notes by Iveth Owens RN at 09/15/122020 Author: Iveth Owens RN Service: (none) Author Type: Registered Nurse Filed: 09/15/122020 Date of Service: 09/15/122020 Status: Signed Supervisor Rose Grading: Iveth Owens RN (Registered Nurse) Pt states she had a miscarriage 3 weeks ago with a D&C. Iveth Owens RN 09/15/122020 onver lilly Transaction, Provider Unknown - 09/15/2012 8:14 PM PDT ED Notes by Iveth Owens RN at 09/15/122013 Author: Iveth Owens RN Service: (none) Author Type: Registered Nurse Filed: 09/15/122013 Date of Service: 09/15/122013 Status: Signed Supervisor Rose Grading: Iveth Owens RN (Registered Nurse) Bed:20
Expected date:
Expected time:
Means of arrival:
Comments:
rojas sfer onver lilly Transaction, Provider Unknown - 09/15/2012 7:01 PM PDT ED Notes by Laura Boyer RN at 09/15/121900 Author: Laura Boyer RN Service: (none) Author Type: Registered Nurse Filed: 09/15/121902 Date of Service: 09/15/121900 Status: Signed Supervisor Rose Grading: Laura Boyer RN (Registered Nurse) Report received from Andres at [facility]. Patient presented with chest pain lasting 5 mins. Troponin 7.66, EKG WNL, SL 20 gauge, was given 324mg aspirin. VS 109/67, HR 80, Res p 18, and SPO2 99% on room air. Laura Boyer RN 09/15/121902 docume nted in this encounter Miscellaneous Notes Plan of Care - Conversion Transaction, Provider Unknown - 09/17/2012 9:44 AM PDT Plan of Care by Maty Lopez RN at 09/17/12943 Author: Maty Lopez RN Service: (none) Author Type: Registered Nurse Filed: 09/17/12943 Date of Service: 09/17/12943 Status: Signed Supervisor Rose Grading: Maty Lopez RN (Registered Nurse) Problem: Pain Goal: Patient s pain/discomfort is manageable Assess and monitor patient s pain using appropriate pain scale. Collaborate with interdis ciplinary team and initiate plan and interventions as ordered. Re-assess patient s pain le jc approximately 1-2 hours after pain management intervention. Premedicate as needed. Outcome: Progressing Pt states "no pain" at this time. Problem: Safety Goal: Patient will be injury free during hospitalization Assess and monitor vitals signs, neurological status including level of consciousness and o rientation. Assess patient s risk for falls and implement fall prevention plan of care and interventions per hospital policy. Ensure arm band on, uncluttered walking paths in room, adequate room lighting, call light a nd overbed table within reach, bed in low position, wheels locked, side rails up per policy, and non-skid footwear provided. Outcome: Progressing Pt independent Problem: Daily Care Goal: Daily care needs are met Assess and monitor ability to perform self care and identify potential discharge needs. Outcome: Progressing Pt ADL's independent. docume nted in this encounter Plan of Treatment Not on filedocumented as of this encounter Procedures + +--------+ + + + | Procedure Name | Priori | Date/Time | Associated Diagnosis | Comments | | | ty | | | | + +--------+ + + + | CV CARDIAC PROCEDURE | Routin | 09/17/2012 | | Results for this | | | e | 10:42 AM | | procedure are in the | | | | PDT | | results section. | + +--------+ + + + | ECHO COMPLETE | Routin | 09/16/2012 | | Results for this | | | e | 3:45 PM | | procedure are in the | | | | PDT | | results section. | + +--------+ + + + | VAS LOWER EXTREMITY | Routin | 09/16/2012 | | Results for this | | VENOUS BILATERAL | e | 2:11 PM | | procedure are in the | | | | PDT | | results section. | + +--------+ + + + | CT ANGIOGRAM | Routin | 09/16/2012 | | Results for this | | PULMONARY | e | 1:18 PM | | procedure are in the | | | | PDT | | results section. | + +--------+ + + + | ECG 12 LEAD | Routin | 09/16/2012 | | Results for this | | | e | 4:54 AM | | procedure are in the | | | | PDT | | results section. | + +--------+ + + + | ECG 12 LEAD | Routin | 09/15/2012 | | Results for this | | | e | 8:20 PM | | procedure are in the | | | | PDT | | results section. | + +--------+ + + + documented in this encounter Results CV CARDIAC PROCEDURE (09/17/2012 10:42 AM PDT) + + | Specimen | + + | | + + + + + | Narrative | Performed At | + + + | | | | | | | PROCEDURES PERFORMED 1. Left heart catheterization. 2. Selective | | | coronary angiogram. 3. Left ventriculogram. HISTORY Ms. Desouza | | | is a 32-year-old lady who presented to the hospital because of chest | | | pain, found to have abnormal troponins, elevated at 7.6, so she was | | | referred to our hospital for further evaluation. Initial workup by | | | CTPA protocol and lower extremity Doppler was negative for DVT for | | | PE, so we referred her for left heart catheterization for further | | | evaluation of the [id number] AR. DESCRIPTION OF PROCEDURE | | | The procedure details, alternatives and complications were explained | | | to the patient. Informed consent was obtained. The patient was | | | brought to the room and prepped in sterile fashion. Timeout was | | | performed. Conscious sedation administered by independent observer. | | | The right wrist was anesthetized with 1% lidocaine. The right | | | radial artery was cannulized with 6-Egyptian Terumo sheath. Then 2.5 mg | | | verapamil, 200 mcg nitroglycerin and 5000 international units | | | heparin given through the sheath. Over a 260 exchange wire, a | | | diagnostic 5-Egyptian JL4 catheter advanced to the ascending aorta, | | | selectively engaging the left main. Contrast was injected. Selective | | | angiogram for the left main, LAD, left circumflex artery performed in | | | different views. Over a guide wire, it was exchanged for a 5-Egyptian | | | diagnostic JR4 catheter, selectively engaged the RCA, contrast was | | | injected and selective angiogram for the RCA was performed in | | | different views. Over a guide wire, it was exchanged for a 5-Egyptian | | | angled pigtail catheter, advanced to the left ventricle, and left | | | ventriculogram was performed in the JACOME view. Over a guide wire, it | | | was pulled out of the body. Sheath was removed. TR band was applied | | | with good hemostasis. The patient was transferred to the recovery | | | [facility] in stable condition. FINDINGS HEMODYNAMICS 1. Systemic | | | pressure 106/64. 2. Left ventricular end-diastolic pressure 24. 3. | | | No significant aortic valve stenosis by pullback. ANGIOGRAM 1. | | | Left main normal size, no significant stenosis. 2. LAD proximal, mid | | | and distal normal size, no significant stenosis. 3. First and second | | | diagonal normal size, no significant stenosis. Third diagonal is | | | absent. 4. Left circumflex artery proximal and mid normal size, no | | | significant stenosis. Third obtuse marginal with no significant | | | stenosis. 5. First and second obtuse marginal are absent. 6. RCA | | | proximal, mid and distal normal size, no significant stenosis. 7. | | | Right PDA small in size, no significant stenosis. 8. Right AV groove | | | artery normal size, no significant stenosis. 9. First, second and | | | third right posterolateral arteries are small in size, no | | | significant stenosis. 10. Right dominant circulation. LEFT | | | VENTRICULOGRAM Left ventriculogram showed EF 65%, with no regional | | | wall motion abnormalities and no significant mitral valve | | | regurgitation. CONTRAST USED 46 mL. COMPLICATIONS None. | | | ESTIMATED BLOOD LOSS Less than 20 mL. CONCLUSIONS 1. Normal | | | coronary arteries. 2. Normal left ventricular systolic function. | | | RECOMMENDATIONS Medical management and risk factor modification. | | | Read by KYE SEARS MD 09/17/2012 10:47 A Electronically | | | signed by KYE SEARS MD on 10/05/2012 10:58 PM | | + + + + + | Procedure Note | + + | Adan Welch Conversion - 12/08/2018 6:27 PM PDT | | | | PROCEDURES PERFORMED | | 1. Left heart catheterization. | | 2. Selective coronary angiogram. | | 3. Left ventriculogram. | | | | HISTORY | | Ms. Desouza is a 32-year-old lady who presented to the hospital because of | | chest pain, found to have abnormal troponins, elevated at 7.6, so she was | | referred to our hospital for further evaluation. Initial workup by CTPA | | protocol and lower extremity Doppler was negative for DVT for PE, so we | | referred her for left heart catheterization for further evaluation of the | | [id number] AR. | | | | DESCRIPTION OF PROCEDURE | | The procedure details, alternatives and complications were explained to | | the patient. Informed consent was obtained. The patient was brought to the | | room and prepped in sterile fashion. Timeout was performed. Conscious | | sedation administered by independent observer. | | | | The right wrist was anesthetized with 1% lidocaine. The right radial | | artery was cannulized with 6-Egyptian Terumo sheath. Then 2.5 mg verapamil, | | 200 mcg nitroglycerin and 5000 international units heparin given through | | the sheath. Over a 260 exchange wire, a diagnostic 5-Egyptian JL4 catheter | | advanced to the ascending aorta, selectively engaging the left main. | | Contrast was injected. Selective angiogram for the left main, LAD, left | | circumflex artery performed in different views. Over a guide wire, it was | | exchanged for a 5-Egyptian diagnostic JR4 catheter, selectively engaged the | | RCA, contrast was injected and selective angiogram for the RCA was | | performed in different views. Over a guide wire, it was exchanged for a | | 5-Egyptian angled pigtail catheter, advanced to the left ventricle, and left | | ventriculogram was performed in the JACOME view. Over a guide wire, it was | | pulled out of the body. Sheath was removed. TR band was applied with good | | hemostasis. The patient was transferred to the recovery area in stable | | condition. | | | | FINDINGS | | | | HEMODYNAMICS | | 1. Systemic pressure 106/64. | | 2. Left ventricular end-diastolic pressure 24. | | 3. No significant aortic valve stenosis by pullback. | | | | ANGIOGRAM | | 1. Left main normal size, no significant stenosis. | | 2. LAD proximal, mid and distal normal size, no significant stenosis. | | 3. First and second diagonal normal size, no significant stenosis. Third | | diagonal is absent. | | 4. Left circumflex artery proximal and mid normal size, no significant | | stenosis. Third obtuse marginal with no significant stenosis. | | 5. First and second obtuse marginal are absent. | | 6. RCA proximal, mid and distal normal size, no significant stenosis. | | 7. Right PDA small in size, no significant stenosis. | | 8. Right AV groove artery normal size, no significant stenosis. | | 9. First, second and third right posterolateral arteries are small in | | size, no significant stenosis. | | 10. Right dominant circulation. | | | | LEFT VENTRICULOGRAM | | Left ventriculogram showed EF 65%, with no regional wall motion | | abnormalities and no significant mitral valve regurgitation. | | | | CONTRAST USED | | 46 mL. | | | | COMPLICATIONS | | None. | | | | ESTIMATED BLOOD LOSS | | Less than 20 mL. | | | | CONCLUSIONS | | 1. Normal coronary arteries. | | 2. Normal left ventricular systolic function. | | | | RECOMMENDATIONS | | Medical management and risk factor modification. | | | | | | Read by KYE SEARS MD 09/17/2012 10:47 A | | | | | + + ECHO Complete (09/16/2012 3:45 PM PDT) + + | Specimen | + + | | + + + + + | Narrative | Performed At | + + + | Patient Name: JUAN CARLOS DESOUZA Date of : 1980 | | | Performing Physician: Kye Sears MD | | | | | | INDICATIONS ACUTE AR/ ELEVATED TROPONIN CONCLUSIONS | | | 1. Overall left ventricular systolic function is normal | | | with, an EF between 60 - 65 %. 2. No regional wall motion | | | abnormalities. 3. The diastolic filling pattern is normal for the age | | | of the patient. 4. There is no evidence of pulmonary hypertension. | | | FINDINGS -------- ECG rhythm: Sinus rhythm. Study: A | | | 2-dimensional transthoracic echocardiogram with m-mode, spectral and | | | color flow Doppler was perfomed. Study: This was a technically | | | adequate study. Left Ventricle: Overall left ventricular systolic | | | function is normal with, an EF between 60 - 65 %. Left Ventricle: The | | | left ventricle cavity size is normal. Left Ventricle: Left | | | ventricular wall thickness is normal. Left Ventricle: No regional | | | wall motion abnormalities. Left Ventricle: The diastolic filling | | | pattern is normal for the age of the patient. Right Ventricle: The | | | right ventricle is normal in size and function. Left Atrium: The left | | | atrium is normal in size. Right Atrium: The right atrium is normal | | | in size. Aortic Valve: The aortic valve is trileaflet, and appears | | | anatomically normal. No aortic stenosis or regurgitation. Mitral | | | Valve: The mitral valve is normal. Mitral Valve: No mitral | | | regurgitation. Tricuspid Valve: The tricuspid valve appears | | | structurally normal. Tricuspid Valve: Mild tricuspid regurgitation | | | present. Tricuspid Valve: There is no evidence of pulmonary | | | hypertension. Tricuspid Valve: The right ventricular systolic | | | pressure (pulmonary artery systolic pressure), as measured by Doppler, | | | is 26.65mmHg. Pulmonic Valve: Pulmonic valve appears structurally | | | normal. Pulmonic Valve: Trace pulmonic regurgitation. Pericardium: | | | There is no pericardial effusion. IVC/Hepatic Veins: The IVC is | | | normal size (1.5-2.5cm) and collapses >50% with sniff, consistent with | | | central venous pressures of 5-10mmHg. Pulmonary Veins: The flow | | | patterns, measured by Doppler, appear normal. Septum: Can not rule | | | out left to right shunt through the interatrial septum by color | | | Doppler. MEASUREMENTS IVC: 1.48 cm LA Major: | | | 4.83 cm EDV(Teich): 126.63 ml IVSd: 0.76 cm LVIDd: 5.14 | | | cm LVPWd: 0.89 cm LVOT Diam: 2.21 cm %FS: 39.66 % | | | EF(Teich): 69.88 % ESV(Teich): 38.13 ml IVSs: 1.20 cm | | | LVIDs: 3.10 cm LVPWs: 1.27 cm SV(Teich): 88.50 ml RA | | | Major: 5.32 cm RVIDd: 3.01 cm LAESV(A-L): 36.37 ml LAESV | | | Index (A-L): 18.37 ml/m2 LAAs A2C: 15.76 cm2 LAESV A-L A2C: | | | 43.99 ml LALs A2C: 4.79 cm LAAs A4C: 13.03 cm2 LAESV A-L | | | A4C: 29.55 ml LALs A4C: 4.87 cm Ao Diam: 3.45 cm AV Cusp: | | | 2.28 cm LA Diam: 3.19 cm LA/Ao: 0.92 %FS: 38 % | | | EDV(Teich): 136.47 ml EF(Teich): 67.71 % ESV(Teich): 44.06 | | | ml IVSd: 0.85 cm IVSs: 1.11 cm LVIDd: 5.31 cm LVIDs: | | | 3.29 cm LVPWd: 1.06 cm LVPWs: 1.48 cm SV(Teich): 92.41 ml | | | D-E Excursion: 1.91 cm E-F Jewell: 0.09 m/s EPSS: 0.69 cm | | | IVC diameter: 1.43 cm IVC collapse: 0.31 cm IVC % collapse: | | | 76.33 % HR: 61.24 BPM AV maxP.76 mmHg AV meanP.03 | | | mmHg AV Vmax: 1.30 m/s AV Vmean: 0.82 m/s AV VTI: 27.60 | | | cm XUAN Vmax: 3.25 cm2 XUAN (VTI): 3.64 cm2 LVCI Dopp: 3.44 | | | l/minm2 LVCO Dopp: 6.81 l/min HR: 67.62 BPM LVOT maxPG: | | | 4.83 mmHg LVOT meanP.80 mmHg LVSI Dopp: 50.89 ml/m2 LVSV | | | Dopp: 100.76 ml LVOT Vmax: 1.09 m/s LVOT Vmean: 0.79 m/s | | | LVOT VTI: 26.18 cm MCO: 465.80 ms MV A Jc: 0.72 m/s MV | | | DecT: 196.19 ms MV E Jc: 1.15 m/s MV E/A Ratio: 1.59 MV | | | PHT: 55.82 ms MVA By PHT: 3.94 cm2 MV A Dur: 147.87 ms | | | Septal e': 0.07 m/s Septal E/e': 16.11 Lateral e': 0.12 m/s | | | Lateral E/e': 9.19 P Vein A: 0.26 m/s P Vein A Dur: | | | 110.90 ms P Vein D: 0.48 m/s P Vein S/D Ratio: 1.42 P Vein S: | | | 0.68 m/s HR: 60.78 BPM PV maxP.87 mmHg PV meanPG: | | | 0.98 mmHg PV Vmax: 0.68 m/s PV Vmean: 0.47 m/s PV VTI: | | | 17.25 cm RAP: 5 mmHg RVSP: 26.64 mmHg TR maxP.64 mmHg | | | TR Vmax: 2.32 m/s TV A Jc: 0.51 m/s TV Dec Jewell: 2.91 | | | m/s2 TV Dec Time: 264.84 ms TV E Jc: 0.77 m/s TV E/A Ratio: | | | 1.50 Plant Safety Engineer: CARLOS A Authenticated by: Kye Sears MD | | | Report Date/Time: 09-16-2012 19:44:25 | | + + + + + | Procedure Note | + + | Adan Welch Conversion - 12/08/2018 6:27 PM PDT Patient Name: Mary Ellen DESOUZA of | | : 1980 Performing Physician: Kye Sears | | MD INDICATIONS A | | CUTE AR/ ELEVATED TROPONIN CONCLUSIONS 1. Overall left ventricular systolic | | function is normal with, an EF between 60 - 65 %.2. No regional wall motion | | abnormalities.3. The diastolic filling pattern is normal for the age of the patient.4. | | There is no evidence of pulmonary hypertension. FINDINGS--------ECG rhythm: Sinus | | rhythm.Study: A 2-dimensional transthoracic echocardiogram with m-mode, spectral and | | color flow Doppler was perfomed.Study: This was a technically adequate study.Left | | Ventricle: Overall left ventricular systolic function is normal with, an EF between 60 - | | 65 %.Left Ventricle: The left ventricle cavity size is normal.Left Ventricle: Left | | ventricular wall thickness is normal.Left Ventricle: No regional wall motion | | abnormalities.Left Ventricle: The diastolic filling pattern is normal for the age of the | | patient.Right Ventricle: The right ventricle is normal in size and function.Left | | Atrium: The left atrium is normal in size.Right Atrium: The right atrium is normal in | | size.Aortic Valve: The aortic valve is trileaflet, and appears anatomically normal. No | | aortic stenosis or regurgitation.Mitral Valve: The mitral valve is normal.Mitral Valve: | | No mitral regurgitation.Tricuspid Valve: The tricuspid valve appears structurally | | normal.Tricuspid Valve: Mild tricuspid regurgitation present.Tricuspid Valve: There is | | no evidence of pulmonary hypertension.Tricuspid Valve: The right ventricular systolic | | pressure (pulmonary artery systolic pressure), as measured by Doppler, is | | 26.65mmHg.Pulmonic Valve: Pulmonic valve appears structurally normal.Pulmonic Valve: | | Trace pulmonic regurgitation.Pericardium: There is no pericardial effusion.IVC/Hepatic | | Veins: The IVC is normal size (1.5-2.5cm) and collapses >50% with sniff, consistent with | | central venous pressures of 5-10mmHg.Pulmonary Veins: The flow patterns, measured by | | Doppler, appear normal.Septum: Can not rule out left to right shunt through the | | interatrial septum by color Doppler. MEASUREMENTS IVC: 1.48 cmLA Major: | | 4.83 cmEDV(Teich): 126.63 mlIVSd: 0.76 cmLVIDd: 5.14 cmLVPWd: 0.89 cmLVOT Diam: | | 2.21 cm%FS: 39.66 %EF(Teich): 69.88 %ESV(Teich): 38.13 mlIVSs: 1.20 cmLVIDs: | | 3.10 cmLVPWs: 1.27 cmSV(Teich): 88.50 mlRA Major: 5.32 cmRVIDd: 3.01 | | cmLAESV(A-L): 36.37 mlLAESV Index (A-L): 18.37 ml/m2LAAs A2C: 15.76 [id number] A-L | | A2C: 43.99 mlLALs A2C: 4.79 cmLAAs A4C: 13.03 [id number] A-L A4C: 29.55 mlLALs | | A4C: 4.87 cmAo Diam: 3.45 cmAV Cusp: 2.28 cmLA Diam: 3.19 cmLA/Ao: 0.92%FS: | | 38 %EDV(Teich): 136.47 mlEF(Teich): 67.71 %ESV(Teich): 44.06 mlIVSd: 0.85 | | cmIVSs: 1.11 cmLVIDd: 5.31 cmLVIDs: 3.29 cmLVPWd: 1.06 cmLVPWs: 1.48 | | cmSV(Teich): 92.41 mlD-E Excursion: 1.91 cmE-F Jewell: 0.09 m/sEPSS: 0.69 cmIVC | | diameter: 1.43 cmIVC collapse: 0.31 cmIVC % collapse: 76.33 %HR: 61.24 BPMAV | | maxP.76 mmHgAV meanP.03 mmHgAV Vmax: 1.30 m/Emily Vmean: 0.82 m/Emily VTI: | | 27.60 cmAVA Vmax: 3.25 cm2AVA (VTI): 3.64 [id number] Dopp: 3.44 l/[id number] Dopp: | | 6.81 l/minHR: 67.62 BPMLVOT maxP.83 mmHgLVOT meanP.80 mmHgLVSI Dopp: | | 50.89 ml/m2LVSV Dopp: 100.76 mlLVOT Vmax: 1.09 m/sLVOT Vmean: 0.79 m/sLVOT VTI: | | 26.18 cmMCO: 465.80 msMV A Jc: 0.72 m/sMV DecT: 196.19 msMV E Jc: 1.15 m/sMV | | E/A Ratio: 1.59MV PHT: 55.82 msMVA By PHT: 3.94 cm2MV A Dur: 147.87 msSeptal e': | | 0.07 m/sSeptal E/e': 16.11Lateral e': 0.12 m/sLateral E/e': 9.19P Vein A: | | 0.26 m/sP Vein A Dur: 110.90 msP Vein D: 0.48 m/sP Vein S/D Ratio: 1.42P Vein S: | | 0.68 m/sHR: 60.78 BPMPV maxP.87 mmHgPV meanP.98 mmHgPV Vmax: 0.68 m/sPV | | Vmean: 0.47 m/sPV VTI: 17.25 cmRAP: 5 mmHgRVSP: 26.64 mmHgTR maxP.64 | | mmHgTR Vmax: 2.32 m/sTV A Jc: 0.51 m/sTV Dec Jewell: 2.91 m/s2TV Dec Time: | | 264.84 msTV E Jc: 0.77 m/sTV E/A Ratio: 1.50 Plant Safety Engineer: SHANEuthenticated by: Kye | | Alqaisi MDReport Date/Time: 09-16-2012 19:44:25 | |EDV(Teich): 126.63 ml | |IVSd: 0.76 cm | |LVIDd: 5.14 cm | |LVPWd: 0.89 cm | |LVOT Diam: 2.21 cm | |%FS: 39.66 % | |EF(Teich): 69.88 % | |ESV(Teich): 38.13 ml | |IVSs: 1.20 cm | |LVIDs: 3.10 cm | |LVPWs: 1.27 cm | |SV(Teich): 88.50 ml | |RA Major: 5.32 cm | |RVIDd: 3.01 cm | |LAESV(A-L): 36.37 ml | |LAESV Index (A-L): 18.37 ml/m2 | |LAAs A2C: 15.76 cm2 | |LAESV A-L A2C: 43.99 ml | |LALs A2C: 4.79 cm | |LAAs A4C: 13.03 cm2 | |LAESV A-L A4C: 29.55 ml | |LALs A4C: 4.87 cm | |Ao Diam: 3.45 cm | |AV Cusp: 2.28 cm | |LA Diam: 3.19 cm | |LA/Ao: 0.92 | |%FS: 38 % | |EDV(Teich): 136.47 ml | |EF(Teich): 67.71 % | |ESV(Teich): 44.06 ml | |IVSd: 0.85 cm | |IVSs: 1.11 cm | |LVIDd: 5.31 cm | |LVIDs: 3.29 cm | |LVPWd: 1.06 cm | |LVPWs: 1.48 cm | |SV(Teich): 92.41 ml | |D-E Excursion: 1.91 cm | |E-F Jewell: 0.09 m/s | |EPSS: 0.69 cm | |IVC diameter: 1.43 cm | |IVC collapse: 0.31 cm | |IVC % collapse: 76.33 % | |HR: 61.24 BPM | |AV maxP.76 mmHg | |AV meanP.03 mmHg | |AV Vmax: 1.30 m/s | |AV Vmean: 0.82 m/s | |AV VTI: 27.60 cm | |XUAN Vmax: 3.25 cm2 | |XUAN (VTI): 3.64 cm2 | |LVCI Dopp: 3.44 l/minm2 | |LVCO Dopp: 6.81 l/min | |HR: 67.62 BPM | |LVOT maxP.83 mmHg | |LVOT meanP.80 mmHg | |LVSI Dopp: 50.89 ml/m2 | |LVSV Dopp: 100.76 ml | |LVOT Vmax: 1.09 m/s | |LVOT Vmean: 0.79 m/s | |LVOT VTI: 26.18 cm | |MCO: 465.80 ms | |MV A Jc: 0.72 m/s | |MV DecT: 196.19 ms | |MV E Jc: 1.15 m/s | |MV E/A Ratio: 1.59 | |MV PHT: 55.82 ms | |MVA By PHT: 3.94 cm2 | |MV A Dur: 147.87 ms | |Septal e': 0.07 m/s | |Septal E/e': 16.11 | |Lateral e': 0.12 m/s | |Lateral E/e': 9.19 | |P Vein A: 0.26 m/s | |P Vein A Dur: 110.90 ms | |P Vein D: 0.48 m/s | |P Vein S/D Ratio: 1.42 | |P Vein S: 0.68 m/s | |HR: 60.78 BPM | |PV maxP.87 mmHg | |PV meanP.98 mmHg | |PV Vmax: 0.68 m/s | |PV Vmean: 0.47 m/s | |PV VTI: 17.25 cm | |RAP: 5 mmHg | |RVSP: 26.64 mmHg | |TR maxP.64 mmHg | |TR Vmax: 2.32 m/s | |TV A Jc: 0.51 m/s | |TV Dec Jewell: 2.91 m/s2 | |TV Dec Time: 264.84 ms | |TV E Jc: 0.77 m/s | |TV E/A Ratio: 1.50 | | | |Plant Safety Engineer: ACRLOS A | |Authenticated by: Kye Sears MD | |Report Date/Time: 09-16-2012 19:44:25 | + + VAS Lower Extremity Venous Bilateral (09/16/2012 2:11 PM PDT) + + | Specimen | + + | | + + + + + | Narrative | Performed At | + + + | [facility] US LOWER EXTREMITY VENOUS DOPPLER BILAT HISTORY: | | | 32 years. Female. Chest pain and elevated d-dimer. TECHNIQUE: | | | Duplex and color flow Doppler evaluation of the bilateral lower | | | extremity deep venous system. This is true Doppler evaluation with | | | color flow, lara scale, and Doppler spectral analysis. COMPARISON: | | | None. FINDINGS: All the vein segments are visualized and | | | compressible. There is normal spontaneous phasic flow with normal | | | response to distal augmentation. Negative for DVT. IMPRESSION: 1. | | | Negative for deep vein thrombosis. | | + + + + + | Procedure Note | + + | Yuri, Adan Conversion - 12/08/2018 6:27 PM PDT [facility] LOWER EXTREMITY VENOUS | | DOPPLER BILAT HISTORY:32 years. Female. Chest pain and elevated d-dimer. | | TECHNIQUE:Duplex and color flow Doppler evaluation of the bilateral lower extremity deep | | venous system. This is true Doppler evaluation with color flow, lara scale, and Doppler | | spectral analysis. COMPARISON:None. FINDINGS:All the vein segments are visualized and | | compressible. There is normal spontaneous phasic flow with normal response to distal | | augmentation. Negative for DVT. IMPRESSION:1. Negative for deep vein thrombosis. | | | | | |COMPARISON: | |None. | | | |FINDINGS: | |All the vein segments are visualized and compressible. There is normal spontaneous phasic f low with normal response to distal augmentation. Negative for DVT. | | | |IMPRESSION: | |1. Negative for deep vein thrombosis. | | | | | + + CT Angiogram Pulmonary w Contrast (09/16/2012 1:18 PM PDT) + + | Specimen | + + | | + + + + + | Narrative | Performed At | + + + | [facility] CT CHEST PULMONARY EMBOLISM W CONTRAST HISTORY: | | | 32 years. Female. Chest pain. TECHNIQUE: CT angiography of the | | | thorax was performed following a the uneventful intravenous | | | administration of 80 cc of Isovue 370. This is a true CT angiography | | | of the thorax with 2-D coronal MIP images obtained. COMPARISON: | | | None. FINDINGS: The heart is normal in size without pericardial | | | effusion. No enlarged mediastinal or hilar lymph nodes . Linear areas | | | of decrease density within the aortic arch and pulmonary artery, felt | | | to represent motion artifact. Symmetric enhancement of the pulmonary | | | arteries bilaterally without intraluminal filling defects to suggest | | | pulmonary embolism. Minimal patchy airspace disease within the | | | posterior right upper lobe. This is likely infectious or inflammatory | | | in nature. IMPRESSION: 1. Negative for pulmonary embolism. 2. | | | Minimal patchy airspace disease within the posterior right upper | | | lobe that may be infectious or inflammatory in nature. | | | | | + + + + + | Procedure Note | + + | Yuri, Rad Conversion - 12/08/2018 6:27 PM PDT [facility] CHEST PULMONARY | | EMBOLISM W CONTRAST HISTORY:32 years. Female. Chest pain. TECHNIQUE:CT angiography of | | the thorax was performed following a the uneventful intravenous administration of 80 cc | | of Isovue 370. This is a true CT angiography of the thorax with 2-D coronal MIP images | | obtained. COMPARISON:None. FINDINGS:The heart is normal in size without pericardial | | effusion. No enlarged mediastinal or hilar lymph nodes . Linear areas of decrease | | density within the aortic arch and pulmonary artery, felt to represent motion artifact. | | Symmetric enhancement of the pulmonary arteries bilaterally without intraluminal filling | | defects to suggest pulmonary embolism. Minimal patchy airspace disease within the | | posterior right upper lobe. This is likely infectious or inflammatory in nature. | | IMPRESSION:1. Negative for pulmonary embolism.2. Minimal patchy airspace disease | | within the posterior right upper lobe that may be infectious or inflammatory in nature. | | | |The heart is normal in size without pericardial effusion. No enlarged mediastinal or hilar lymph nodes . Linear areas of decrease density within the aortic arch and pulmonary artery, felt to represent motion artifact. Symmetric enhancement of the | |pulmonary arteries bilaterally without intraluminal filling defects to suggest pulmonary em bolism. Minimal patchy airspace disease within the posterior right upper lobe. This is likel y infectious or inflammatory in nature. | | | |IMPRESSION: | |1. Negative for pulmonary embolism. | |2. Minimal patchy airspace disease within the posterior right upper lobe that may be infec tious or inflammatory in nature. | | | | | + + ECG 12 lead (09/16/2012 4:54 AM PDT) + + + + + + | Component | Value | Ref Range | Performed | Pathologist | | | | | At | Signature | + + + + + + | DIAGNOSIS: | Normal sinus rhythmLeft | | EXTERNAL | | | | axis deviationAbnormal | | LAB | | | | ECGWhen compared with | | | | | | ECG of 15-SEP-2012 | | | | | | 20:20,No significant | | | | | | change was | | | | | | foundConfirmed by | | | | | | KYE SEARS ([id number]) on | | | | | | 09/16/2012 2:59:43 PM | | | | + + + + + + + + | Specimen | + + | | + + + + + | Narrative | Performed At | + + + | Historically converted procedure from [facility] | EXTERNAL LAB | + + + + +---------+ + + | Performing | Address | City/State/Zipcode | Phone Number | | Organization | | | | + +---------+ + + | EXTERNAL LAB | | | | + +---------+ + + ECG 12 lead (09/15/2012 8:20 PM PDT) + + + + + + | Component | Value | Ref Range | Performed | Pathologist | | | | | At | Signature | + + + + + + | DIAGNOSIS: | Normal sinus rhythmLeft | | EXTERNAL | | | | axis deviationAbnormal | | LAB | | | | ECGNo previous ECGs | | | | | | availableThis ECG | | | | | | contains Unconfirmed | | | | | | Interpretation | | | | | | Statements. See ED | | | | | | Record for Physician | | | | | | Interpretation. | | | | | | Confirmed by MUSE READ | | | | | | ONLY, -COMPUTER ([id number]), | | | | | | science editor GUDELIA BRO | | | | | | (4) on 09/16/2012 6:10:21 | | | | | | AM | | | | + + + + + + + + | Specimen | + + | | + + + + + | Narrative | Performed At | + + + | Historically converted procedure from [facility] environment | EXTERNAL LAB | + + + + +---------+ + + | Performing | Address | City/State/Zipcode | Phone Number | | Organization | | | | + +---------+ + + | EXTERNAL LAB | | | | + +---------+ + + documented in this encounter Visit Diagnoses + + | Diagnosis | + + | NSTEMI (non-ST elevated myocardial infarction) (HCC) Acute myocardial infarction, | | subendocardial infarction, episode of care unspecified | + + | Chest pain Chest pain, unspecified | + + documented in this encounter
--- OUTSIDE RECORDS SUMMARY | ~2019-11-22 | XMS | Encounter Summary ---
Demographics + + + | Address | [address] | | | [place] [address] | + + + | Home Phone | | + + + | Preferred Language | Unknown | + + + | Marital Status | Single | + + + | Amish Affiliation | Unknown | + + + | Race | White | + + + | Ethnic Group | or | + + + Author + + + | Author | [facility] | + + + | Organization | [facility] | + + + | Address | Unknown | + + + | Phone | Unavailable | + + + Support + + +---------+ + | Name | Relationship | Address | Phone | + + +---------+ + | Rosalind Kang | ECON | Unknown | | + + +---------+ + Care Team Providers + +------+ + | Care Boat Hoist Operator Helper Name | Role | Phone | [...] | | | | | Neuro-Ophthalmology | [place], [place] | | | | | at [facility] [address] | [address] | | | | | [address] [facility] | [phone] | | | | | [facility], | | | | | | Building | | | | | | Floor [place], [place] | | | | | | [address] | | | | | | [phone] | | | +--------+ + + + [...]
--- OUTSIDE RECORDS SUMMARY | ~2019-11-22 | XMS | Encounter Summary ---
Demographics + + + | Address | [address] | | | [place] [address] | + + + | Home Phone | | + + + | Preferred Language | Unknown | + + + | Marital Status | Single | + + + | Lutheran Affiliation | Unknown | + + + | Race | White | + + + | Ethnic Group | or | + + + Author + + + | Author | [facility] | + + + | Organization | [facility] | + + + | Address | Unknown | + + + | Phone | Unavailable | + + + Support + + +---------+ + | Name | Relationship | Address | Phone | + + +---------+ + | Rosalind Kang | ECON | Unknown | | + + +---------+ + Care Team Providers + +------+ + | Care Flake Cutter Operator Name | Role | Phone | [...] Care Coordination | | 2016 | | [place] | [address] | | | | | Neuro-Ophthalmology | [place], [place] | | | | | at [facility] [address] | [address] | | | | | [facility] | [phone] | | | | | [place], | | | | | | Building | | | | | | Floor [place], [place] | | | | | | [address] | | | | | | [phone] | | | +--------+ + + + [...]
--- OUTSIDE RECORDS SUMMARY | ~2019-11-22 | XMS | Encounter Summary ---
Demographics + + + | Address | [address] | | | [place] [address] | + + + | Home Phone | | + + + | Preferred Language | Unknown | + + + | Marital Status | Single | + + + | Baptism Affiliation | Unknown | + + + | Race | Unknown | + + + | Ethnic Group | Unknown | + + + Author + + + | Author | [facility] | | | and [place] | + + + | Organization | [facility] | | | and [place] [...] Team Providers + +------+ + | Care Pump Press Operator Name | Role | Phone [...] Provider Unknown | | | | | [place], [place] | | | | | | [address] | (Fax) | | | | | [...]
--- OUTSIDE RECORDS SUMMARY | ~2019-11-22 | XMS | Encounter Summary ---
Demographics + + + | Address | [address] | | | [place] [address] | + + + | Home Phone | | + + + | Preferred Language | Unknown | + + + | Marital Status | Single | + + + | Caodaism Affiliation | Unknown | + + + | Race | White | + + + | Ethnic Group | or | + + + Author + + + | Author | [facility] | + + + | Organization | [facility] | + + + | Address | Unknown | + + + | Phone | Unavailable | + + + Support + + +---------+ + | Name | Relationship | Address | Phone | + + +---------+ + | Rosalind Kang | ECON | Unknown | | + + +---------+ + Care Team Providers + +------+ + | Care Cash Applications Analyst Name | Role | Phone | [...] | | | | | Neuro-Ophthalmology | [place], [place] | | | | | at [facility] [address] | [address] | | | | | Ave [facility] | [phone] | | | | | [facility], | | | | | | Building | | | | | | Floor [place], [place] | | | | | | [address] | | | | | | [phone] | | | +--------+ + + + [...]
--- NOTE | 2019-11-22 14:09 | EKG ---
[facility] [address] [facility] [place] [address] Signed Normal sinus rhythm Low voltage QRS Incomplete right bundle branch block Cannot rule out Anterior infarct , age undetermined Abnormal ECG When compared with ECG of 24-AUG-2019 10:25, Incomplete right bundle branch block has replaced Nonspecific intraventricular conduction delay Minimal criteria for Anterior infarct are now present Confirmed by CHRIS CHISHOLM MD ([id number]) on 11/22/2019 2:09:10 PM Electronically Signed By: CHRIS CHISHOLM MD 11/22/19 1409 PATIENT NAME: JUAN CARLOS DESOUZA BECCA Electrocardiogram DATE OF : 80 PHYSICIAN: CHRIS CHISHOLM MD REPORT #: [id number] REPORT IS CONFIDENTIAL AND NOT TO BE RELEASED WITHOUT AUTHORIZATION
== END 2019-11-22 13:46 | disposition home or self-care (01) ==
LOC: ED 09:05
DX: R55 Syncope and collapse (principal)
CPT/HCPCS: 70450; 71045; 80053; 81001; 83735; 84484; 85025; 93005; 93010; 99284-25

== ENCOUNTER 2020-12-31 07:25 | Day surgery (SDC) | payer OTHER ==
[~2020-12-31] VITALS: Ht 154.9 cm; Wt 131.8 kg
--- NOTE | ~2020-12-31 | OR ---
[facility] [address] [place], [place] [address] Draft DATE OF OPERATION: 12/31/2020 SURGEON: Conrad Chandra MD PREOPERATIVE DIAGNOSES: 1. Morbid obesity (body mass index equal to 54). 2. History of H pylori. 3. History of iron deficiency anemia. POSTOPERATIVE DIAGNOSES: 1. Mild diffuse gastritis. 2. Small hiatal hernia (37-34 cm). 3. Probable healed pyloric bulb ulcer. 4. Single diverticulum distal right colon. PROCEDURES: 1. EGD with CLOtest and biopsies of the antrum and GE junction. 2. Colonoscopy with hot biopsy. ESTIMATED BLOOD LOSS: None. INDICATIONS: Juan Carlos is a 40-year-old obese female with a body mass index of 54. She is being evaluated for bariatric surgery with [facility]. Her H pylori stool antigen came back positive. She took amoxicillin, clarithromycin and Prilosec. Currently, she has no upper or lower GI complaints. She talks about intermittent acid reflux. She had iron deficiency anemia in the past with a hemoglobin 11.7 and a mean cell volume of 81. She has been on iron therapy and that improved to normal. She quit using diclofenac, but does use ibuprofen from time to time. She has no family history of colon cancer or polyps. She is in need of upper and lower endoscopy with respect to the bariatric surgery. She needs repeat biopsies of the stomach to rule out H pylori. In addition, she uses CPAP at night for her sleep apnea. In the office, I gave her booklets on both upper and lower endoscopy. She understands the nature of the two tests. There is risk including, but not limited to gas bloating, crampy abdominal pain, bleeding, perforation requiring surgery, and missed diagnosis. She also understands the need for monitored anesthesia care with propofol given her body mass index. She has a very round full face, very heavy short neck, heavy chest and abdomen. She had expressed understanding and wished to proceed. PATIENT NAME: JUAN CARLOS DESOUZA OPERATIVE REPORT DATE OF : 80 REPORT #: [id number] PHYSICIAN: CONRAD CHANDRA MD PCP: MATILDE SPENCER MD REPORT IS CONFIDENTIAL AND NOT TO BE RELEASED WITHOUT AUTHORIZATION [facility] [address] [place], [place] [address] Draft PROCEDURE NOTE: Juan Carlos was taken into our endoscopy suite and placed in the supine semi-recumbent position. She was given IV sedation and propofol per our nurse gastroenterology professor. A bite block was utilized for the case. The adult gastroscope was introduced and advanced under direct visualization of the camera into the third portion of the duodenum. The duodenum was unremarkable. She had puckering of the mucosa on the rim of the pyloric channel which suggests she may have had a recent duodenal ulcer that is healed. There were no inflammatory changes. The stomach showed mild inflammatory changes. There were no ulcerations in the stomach. We went ahead and took a biopsy of the antrum for CLOtest as well as pathologic review. The incisura body and fundus of the stomach were unremarkable. Upon retroflexion of scope, we could see her hiatal hernia. She had been coughing and it was difficult to measure that out exactly. It is not particularly large, it is roughly 37-34 cm. We did not see any pathology inside the hiatal hernia itself. She did have some granulation tissue along the Z-line. There was no Dinh's mucosa. We did our best to take a biopsy at the Z-line, but with her coughing, we were just distal to the Z-line and I am sure that will come back with type tissue. Otherwise, no distal esophagitis. The middle and upper esophagus were unremarkable. After this, the gas was suctioned out and the gastroscope removed. We did suction out saliva as we came back through her posterior oropharynx. She even had some saliva coming out of her nose. Nevertheless, she tolerated the procedure overall well. Juan Carlos was then rotated into the left lateral decubitus position. She was maintained on IV sedation with propofol per the nurse gastroenterology professor. A digital rectal exam was performed and this was unremarkable. There were no external hemorrhoids. She had good sphincter tone. The adult colonoscope was introduced and advanced under direct visualization of camera up to the cecum without difficulty. Her prep was quite good. We could easily see appendiceal orifice and ileocecal valve. We had taken pictures throughout for photodocumentation. We had slowly withdrawn the scope. We saw just a single moderate-sized diverticulum in her distal right colon. The rest of the colon was unremarkable. The rectum was unremarkable. Upon retroflexion of scope, there was no pathology noted above the anal canal. After this, the gas was suctioned out and colonoscope removed. Juan Carlos tolerated the lower endoscopy quite well. RECOMMENDATIONS: I will see Juan Carlos back in my office in 7 to 14 days to review her results. Conrad Chandra MD PATIENT NAME: JUAN CARLOS DESOUZA OPERATIVE REPORT DATE OF : 80 REPORT #: [id number] PHYSICIAN: CONRAD CHANDRA MD PCP: MATILDE SPENCER MD REPORT IS CONFIDENTIAL AND NOT TO BE RELEASED WITHOUT AUTHORIZATION [facility] [address] [place], [place] [address] Draft ALB/MODL /[id number] cc: MD Conrad Dennis MD [facility] Copies: CONRAD CHANDRA MD ~ PATIENT NAME: JUAN CARLSO DESOUZA OPERATIVE REPORT DATE OF : 80 REPORT #: [id number] PHYSICIAN: CONRAD CHANDRA MD PCP: MATILDE SPENCER MD REPORT IS CONFIDENTIAL AND NOT TO BE RELEASED WITHOUT AUTHORIZATION
[~2020-12-31 07:25] MED LIST changes: +CANE1 EACH MISC; +FERROUS GLUCON324 M2 PO; +HYDROCHLOROTH12.5 MG PO; +HYDROCODON-ACE1 EA10 PO; +IBUPROFEN200 MG PO
--- NOTE | 2020-12-31 09:10 | NUR ---
12/31/20 0910 Greta Linares 0908-PATIENT ARRIVED TO PACU ON 8L MASK RR EVEN LAYING SUPINE. PLACED ON 6L MASK. PATIENT REACTIVE TO VERBAL STIMULI OPENING EYES HOB ELEVATED. SR. IVF INFUSING. ABDOMEN ROUND AND SOFT.
--- NOTE | 2021-01-01 14:18 | PATH ---
[facility] [address] [place], [place] [address] Signed SPECIMEN(S): A ANTRUM BIOPSY SPECIMEN(S): B GE JUNCTION SPECIMEN SOURCE: A. ANTRUM BIOPSY B. GE JUNCTION CLINICAL HISTORY: EGD and colonoscopy. Morbid obesity, anemia, history of H. pylori. Postop Dx: Mild gastritis, hiatal hernia. Colonoscopy: Unremarkable with single diverticulum. MICROSCOPIC DESCRIPTION: Histologic sections of all submitted blocks are examined by light microscopy. These findings, together with the gross examination, support the pathologic diagnosis. Regarding specimen B: Sections demonstrate squamocolumnar junctional mucosa with reactive squamous changes including spongiosis, basal cell hyperplasia, mild hyperkeratosis, and reactive nuclear enlargement. Scattered acute inflammatory cells are seen within the foveolar glandular mucosa and the submucosa is filled with a chronic inflammatory cell infiltrate. These findings are consistent with reflux esophagitis. There is no increase in intraepithelial eosinophils. NAL:cml FINAL PATHOLOGIC DIAGNOSIS: A. Stomach, antrum, biopsy: - Antral mucosa with chronic, inactive gastritis. - Negative for Helicobacter organisms on HE stain, see comment. - Negative for dysplasia or malignancy. B. Gastroesophageal junction, biopsy: - Squamocolumnar junctional mucosa with changes consistent with reflux esophagitis. - Negative for intestinal metaplasia, dysplasia, or malignancy. COMMENT: Regarding specimen A: An H. pylori immunohistochemical stain is pending and will be reported in an addendum. NAL:cml:C2NR GROSS DESCRIPTION: Two specimens are received in two containers, labeled "JM." PATIENT NAME: JUAN CARLOS DESOUZA PATHOLOGY DATE OF : 80 REPORT #: [id number] PHYSICIAN: MICHAEL PRITCHARD PCP: MATILDE SPENCER MD REPORT IS CONFIDENTIAL AND NOT TO BE RELEASED WITHOUT AUTHORIZATION [facility] [address] [place], [place] [address] Signed A. The specimen, labeled "JM, antrum biopsy," is received in formalin and consists of one vaughan soft tissue fragment that measures 0.3 cm in greatest dimension. The specimen is entirely submitted in cassette (A1). B. The specimen, labeled "JM, GE junction biopsy," is received in formalin and consists of one vaughan soft tissue fragment that measures 0.2 cm in greatest dimension. The specimen is entirely submitted in cassette (B1). JS (under the direct supervision of a pathologist) The Gross Description was prepared using a voice recognition system. The report was reviewed for accuracy; however, sound-alike word errors, addition and/or deletions may occur. If there is any question about this report, please contact Client Services. PERFORMING LABORATORY: The technical component was performed by [facility], [address] [place] [id number] (Dental Floss Packer: Alesia Reyes MD; CLIA# [id number]). [facility], [address] [place] [address] (CLIA# [id number]). Diagnostician: Taya Grullon MD Pathologist Electronically Signed 01/01/2021 Copies: ~ PATIENT NAME: JUAN CARLOS DESOUZA PATHOLOGY DATE OF : 80 REPORT #: [id number] PHYSICIAN: MICHAEL PRITCHARD PCP: MATILDE SPENCER MD REPORT IS CONFIDENTIAL AND NOT TO BE RELEASED WITHOUT AUTHORIZATION
== END 2020-12-31 09:40 | disposition home or self-care (01) ==
LOC: OPS 07:25 → DS 07:25 → OPS 08:15 → DS 08:15 → OPS 09:40 → DS 01-21 10:15
PROVIDERS: ATTEND Colon & Rectal Surgery
PROC: 0DB78ZX Excision of Stomach, Pylorus, Via Natural or Artificial Opening Endoscopic, Diagnostic (ICD-10-PCS; principal; 2020-12-31 08:15)
PROC: 0DJD8ZZ Inspection of Lower Intestinal Tract, Via Natural or Artificial Opening Endoscopic (ICD-10-PCS; 2020-12-31 08:15)
DX: K29.50 Unspecified chronic gastritis without bleeding (principal); K44.9 Diaphragmatic hernia without obstruction or gangrene; K57.30 Diverticulosis of large intestine without perforation or abscess without bleeding; I10 Essential (primary) hypertension; K21.9 Gastro-esophageal reflux disease without esophagitis; D50.9 Iron deficiency anemia, unspecified; E66.01 Morbid (severe) obesity due to excess calories; Z68.43 Body mass index [BMI] 50.0-59.9, adult; G47.30 Sleep apnea, unspecified; Z86.19 Personal history of other infectious and parasitic diseases
CPT/HCPCS: J2704; J7121

== ENCOUNTER 2021-12-09 19:07 | Emergency (ER) | payer OTHER ==
[~2021-12-09] VITALS: Ht 154.9 cm; Wt 126.0 kg
== END 2021-12-09 23:37 | disposition home or self-care (01) ==
LOC: ED 19:07
DX: K57.30 Diverticulosis of large intestine without perforation or abscess without bleeding (principal); E78.00 Pure hypercholesterolemia, unspecified; Z20.822 Contact with and (suspected) exposure to COVID-19
CPT/HCPCS: 36415; 74177; 80053; 81001; 83690; 84703; 85025; 87502; 96361; 99284-25; J7030; Q9967; U0003

== ENCOUNTER 2022-04-05 14:10 | Emergency (ER) | payer OTHER ==
[~2022-04-05] VITALS: Ht 154.9 cm; Wt 126.4 kg
[2022-04-06] MEDS ORDERED: METOPROLOL TART50 MG PO (15:19)
[2022-04-06] MEDS ORDERED: OMEPRAZOLE20 MG (15:19)
[2022-04-06] MEDS ORDERED: DICLOFENAC SODI75 MG PO (15:20)
[2022-04-06] MEDS ORDERED: FERROUS GLUCON324 M1 PO (15:20)
[2022-04-06] MEDS ORDERED: IBUPROFEN200 M1 PO (15:20)
== END 2022-04-05 23:18 | disposition home or self-care (01) ==
LOC: ED 14:10
DX: S09.90XA Unspecified injury of head, initial encounter (principal); G43.909 Migraine, unspecified, not intractable, without status migrainosus; I10 Essential (primary) hypertension; E66.01 Morbid (severe) obesity due to excess calories; Z68.43 Body mass index [BMI] 50.0-59.9, adult; Z79.899 Other long term (current) drug therapy; W50.0XXA Accidental hit or strike by another person, initial encounter
CPT/HCPCS: 36415; 70450; 70486; 80053; 85025; 96361; 96374; 96375; 99284-25; J1200; J1885; J2405; J7121

== ENCOUNTER 2022-04-07 15:53 | Emergency (ER) | payer OTHER ==
[~2022-04-07] VITALS: Ht 154.9 cm; Wt 125.5 kg
[~2022-04-07 15:53] MED LIST changes: +FERROUS GLUCON324 M1 PO; +IBUPROFEN200 M1 PO; +METOPROLOL TART50 MG PO; +OMEPRAZOLE20 MG
--- OUTSIDE RECORDS SUMMARY | 2022-04-07 15:58 | XMS ---
PreManage Notification: JUAN CARLOS DESOUZA Security Commutator Presser Events No recent Security Events currently on file CRITERIA MET - [facility] - 2 Visits in 30 Days CARE PROVIDERS DENISE STALLWORTH Physician Power Station Operator Current PHONE: Unknown Juan Luis has no Care Guidelines for this patient. E.Jolie VISIT COUNT (12 MO.) 3 [facility] TOTAL 3 NOTE: Visits indicate total known visits. ED/UCC VISIT TRACKING (12 MO.) 04/07/2022 15:[address] [facility] [place] TYPE: Emergency COMPLAINT: - LOST VISION R EYE 04/05/2022 14:[address] [facility] [place] TYPE: Emergency COMPLAINT: - HEADACHE, R SIDE FACE PAIN, BLURRED VISION 12/09/2021 19:[address] [facility] [place] TYPE: Emergency COMPLAINT: - ABDOMINAL PAIN DIAGNOSES: - Pure hypercholesterolemia, unspecified - Contact with and (suspected) exposure to COVID-19 - Left lower quadrant pain - Diverticulosis of large intestine without perforation or abscess without bleeding INPATIENT VISIT TRACKING (12 MO.) No inpatient visits to display in this time frame [email or web address]
== END 2022-04-07 17:47 | disposition home or self-care (01) ==
LOC: ED 15:53
DX: H46.9 Unspecified optic neuritis (principal); E78.00 Pure hypercholesterolemia, unspecified
CPT/HCPCS: 96365; 99283-25; J2930

== ENCOUNTER 2023-12-11 12:03 | Emergency (ER) | payer OTHER ==
[~2023-12-11] VITALS: Ht 154.9 cm; Wt 115.0 kg
[~2023-12-11 12:03] MED LIST changes: +ALLER-TEC10 MG PO; +HYDROCHLOROTHIA25 MG PO; +IMURAN50 MG PO; +METFORMIN HCL500 MG PO; +TRULICITY3 MG/0.5 M SQ
[2023-12-11] MEDS ORDERED: LIDOCAINE 2% VISCOUS 6 ML SYR MM ONE (13:30)
[2023-12-11] MEDS ORDERED: AMOXICILLIN/CLAVULANATE K 875 MG TAB PO ONE (13:30)
[2023-12-11] MEDS ORDERED: LIDOCAINE 2% VISCOUS 6 ML SYR ONE (13:55)
[2023-12-11] MEDS ORDERED: AMOX TR-K CLV1 EAC1 PO (14:09)
[2023-12-11] MEDS ORDERED: LIDOCAINE HCL100 ML MT (14:09)
[2023-12-11 14:18] VITALS: BP 131/89
== END 2023-12-11 14:18 | disposition home or self-care (01) ==
LOC: ED 12:03
DX: J02.0 Streptococcal pharyngitis (principal); I10 Essential (primary) hypertension; E11.9 Type 2 diabetes mellitus without complications; Z79.84 Long term (current) use of oral hypoglycemic drugs; Z79.899 Other long term (current) drug therapy; Z11.52 Encounter for screening for COVID-19
CPT/HCPCS: 87651; 99283; U0002